=== PATIENT | female | born 1990 | race Caucasian/White ===

== ENCOUNTER 2017-12-18 06:17 | Emergency (ER) | payer OTHER, SELFPAY ==
[2017-12-18 06:33] VITALS: BP 117/78; PULSE 81; RESP 18; TEMP 36.5; O2SAT 100
--- NOTE | 2017-12-18 06:39 | DI.US.S_ITS ---
PROCEDURE: US PELVIC COMPLETE INDICATIONS: pelvic pain, bleeding TECHNIQUE: Real-time scanning was performed of the pelvic organs, with image documentation. Additional endovaginal scanning was necessary due to incomplete visualization of the adnexal and endometrial structures by transabdominal scanning. COMPARISON: None. FINDINGS: Transabdominal scanning: Limited scanning through the kidneys shows no hydronephrosis. No pathologic free abdominal or pelvic fluid. Endovaginal scanning: Uterus: Uterus is normal in size at the 7.3 x 2.5 x 3.2 cm. The endometrium measures 5 mm in combined thickness. Ovaries: The right ovary measures 3.0 x 2.5 x 1.8 cm and has a normal echotexture. The left ovary measures 1.8 x 1.4 x 2.4 cm and has a normal echotexture. No free pelvic fluid. IMPRESSION: 1. Unremarkable pelvic ultrasound. These findings are concordant with the overnight interpretation. Dictated by: Jessie Hernandez M.D. on 12/18/2017 at 8:31 Approved by: Jessie Hernandez M.D. on 12/18/2017 at 8:32
--- NOTE | 2017-12-18 06:40 | ED.ABDPAIN ---
HPI - Abdominal Pain General Chief Complaint: Abdominal Pain Stated Complaint: ABDOMINAL PAIN AND VOMITING Time Seen by Provider: 12/18/17 06:28 Source: patient Mode of arrival: ambulatory Limitations: no limitations History of Present Illness HPI narrative: 27-year-old female with history of ovarian cysts and endometriosis presents to the emergency department with a chief complaint of episodes of pelvic pain with nausea and vomiting since Tuesday. Her last. Was November 29 and was normal for her. She has had decreased appetite and is now a bit dizzy and lightheaded. She denies any fever or chills MD complaint: abdominal pain Onset (ago): day(s) Pain Consistency: intermittent Location: suprapubic Severity: moderate Quality: cramping and aching Radiation: none Migration to: no migration Relieving factors: nothing Exacerbating factors: movement Associated symptoms: nausea and vomiting Related Data Date of Last Menstrual Period: 11/29/17 Patient : No Home Medications Medication Instructions Recorded Confirmed etonogestrel [Nexplanon] 68 mg INTRADERMAL #0 ea 04/07/16 12/06/17 valacyclovir 1 gram tablet 500 mg PO BID 12/06/17 12/06/17 Previous Rx's Medication Instructions Recorded ondansetron [Zofran ODT] 4 mg SUBLINGUAL Q6HP PRN #10 odt 09/10/17 levonorgestrel 0.15 mg-ethinyl 1 tab PO DAILY #2 packet 12/06/17 estradiol 0.03 mg tablet oxycodone-acetaminophen 5 mg-325 1 tab PO Q6H #20 tab 12/06/17 mg tablet Allergies Allergy/AdvReac Type Severity Reaction Status Date / Time azithromycin [AZITHROMYCIN] Allergy Severe rash/throat Verified 12/18/17 08:00 swelling topiramate [TOPIRAMATE] Allergy Intermediate Rash Verified 12/18/17 08:00 codeine [CODEINE] AdvReac Severe Heartburn Verified 12/18/17 08:00 tramadol [TRAMADOL] AdvReac Intermediate Vomiting Verified 12/18/17 08:00 Review of Systems Review of Systems All systems reviewed & are unremarkable except as noted in HPI and below Constitutional Denies chills, Reports fatigue, Denies fever(s), Denies lethargy and Denies weakness Eyes Denies change in vision, Denies eye discharge, Denies irritation and Denies loss of vision ENT Ears, Nose, Mouth, and Throat: Denies change in voice, Denies neck pain and Denies sore throat Cardiovascular Denies chest pain, Denies irregular heart rhythm, Denies lightheadedness, Denies palpitations, Denies dyspnea, Denies dyspnea on exertion and Denies orthopnea Respiratory Denies cough, Denies dyspnea, Denies dyspnea on exertion and Denies wheezing Gastrointestinal Gastrointestinal: Denies abdominal pain, Denies change in bowel habits, Denies diarrhea, Reports nausea and Reports vomiting Genitourinary Denies hematuria, Reports pelvic pain, Denies flank pain, Denies urinary incontinence and Denies urinary urgency Musculoskeletal Denies neck pain Integumentary/Breasts Denies pruritus, Denies erythema, Denies rash and Denies wounds Neurologic Denies confusion, Denies loss of vision and Denies weakness Psychiatric Denies anxiety, Denies confusion, Denies depression, Denies homicidal ideation and Denies suicidal ideation Endocrine Reports fatigue and Denies palpitations Hematologic/Lymphatic Denies easy bruising Allergic/Immunologic Denies wheezing PFSH Surgical History History of tonsillectomy Status post appendectomy Status post laparoscopy Status post laparoscopy Status post laparoscopy (07/19/14) Status post ovarian cystectomy Family History Grandfather Age: 81 Colon cancer Grandmother Age: 80 Scoliosis Grandfather Lung cancer Social History Smoking Status: Never smoker Exam Narrative Exam Narrative: Pleasant 27-year-old female in mild distress, holding emesis bag Initial Vital Signs Initial Vital Signs: Vital Signs Temperature 97.7 F 12/18/17 06:33 Pulse Rate 81 12/18/17 06:33 Respiratory Rate 18 12/18/17 06:33 Blood Pressure 117/78 12/18/17 06:33 Pulse Oximetry 100 12/18/17 06:33 Const General: cooperative and well developed Nutritional Appearance: well nourished Orientation: alert, awake, oriented x3 and not confused [facility] Head: normocephalic and atraumatic Ears: external ears normal and TM's normal bilaterally Nose: external nose normal and No nasal discharge Face and sinus: sinuses nontender, face symmetric, no sinus tenderness and No dry mucous membranes Mouth: oral mucosae normal and moist mucous membranes Teeth and gingiva: dentition normal Throat: tonsils normal and uvula midline Eyes General: appearance normal, both eyes and all related structures Eyelids: eyelids normal Conjunctivae: conjunctivae normal Sclera: sclerae normal Pupils: PERRL EOM: EOM intact bilaterally Neck Neck: normal visual inspection, trachea midline, No lymphadenopathy, No midline deformity and No JVD Lymphatic: No lymphedema Chest Chest: normal inspection of the chest Resp Effort & Inspection: normal respiratory effort, able to speak in complete sentences, no respiratory distress and no use of accessory muscles Auscultation: clear to auscultation bilaterally, no rales, no rhonchi and no wheezes Cardio Rate: regular rate Rhythm: regular rhythm Heart Sounds: no click, no gallops, no murmurs and no rubs Pulses: normal peripheral pulses GI Inspection: non-distended Palpation: soft, no hepatosplenomegaly, No guarding, No pulsatile mass and No tender Auscultation: normal bowel sounds Back/Spine/Pelvis Back: No CVA tenderness Cervical Spine: cervical ROM normal and No pain with cervical ROM Thoracic/Lumbar Spine: thoracic and lumbar spine normal to inspection Skin General: no rashes or lesions noted, No jaundice and No petechiae Neuro General: alert, oriented x3, gait normal and no focal motor deficits Speech: speech normal Extrem General: full ROM, no clubbing, cyanosis or edema, no pedal edema and no calf tenderness Psych Appearance: well kempt Mental Status: mental status grossly normal Attitude: cooperative Thought Content: normal and suicidality Judgment: judgment good Course Orders Ordered: Discontinued Medications Diphenhydramine HCl (Benadryl) 25 mg IV NOW ONE Stop: 12/18/17 09:07 Last Admin: 12/18/17 09:19 Dose: 25 mg Haloperidol (Haldol) 3 mg IV NOW ONE Stop: 12/18/17 09:07 Last Admin: 12/18/17 09:19 Dose: Not Given Sodium Chloride (Normal Saline 0.9%) 1,000 mls @ 1,000 mls/hr IV BOLUS ONE Stop: 12/18/17 07:38 Last Infusion: 12/18/17 08:58 Dose: 0 mls/hr Admin: 12/18/17 07:57 Dose: 1,000 mls/hr Ketorolac Tromethamine (Toradol) 30 mg IV NOW ONE Stop: 12/18/17 06:40 Last Admin: 12/18/17 07:58 Dose: 30 mg Ondansetron HCl (Zofran) 4 mg IV Q4HR PRN PRN Reason: Nausea And Vomiting Last Admin: 12/18/17 07:57 Dose: 4 mg Ondansetron HCl (Zofran Odt) 4 mg PO NOW ONE Stop: 12/18/17 09:51 Last Admin: 12/18/17 09:53 Dose: 4 mg Vital Signs - 8 hr 12/18/17 06:33 Temperature 97.7 F Pulse Rate 81 Respiratory Rate 18 Blood Pressure 117/78 Pulse Oximetry 100 MDM - Abdominal Pain Lab Data Result diagrams: 12/18/17 07:15 12/18/17 07:15 Lab Results 12/18/17 12/18/17 12/18/17 Range/Units 07:10 07:10 07:15 WBC 9.6 (4.5-11.0) X10^3/uL RBC 4.57 (4.0-5.2) X10^6/uL Hgb 13.5 (12.0-16.0) g/dL Hct 38.0 (36-46) % MCV 83.1 (80-100) fL MCH 29.6 (26-34) PG MCHC 35.6 (30-36) % RDW 12.7 (11.6-14.8) % Plt Count 457 H (150-400) X10^3/uL Neut % (Auto) 33.9 L (50-75) % Lymph % (Auto) 54.8 H (25-40) % [place] % (Auto) 6.7 (3-14) % Eos % (Auto) 3.9 (2-4) % Baso % (Auto) 0.7 (0-2) % Neut # (Auto) 3200 (7216-1591) /uL Sodium (137-145) mmol/L Potassium (3.4-5.1) mmol/L Chloride (98-107) mmol/L Carbon Dioxide (22-32) mmol/L BUN (7-17) mg/dL Creatinine (0.52-1.04) mg/dL Estimated GFR (>60) mL/min BUN/Creatinine Ratio (6-22) Glucose (70-100) mg/dL Calcium (8.4-10.2) mg/dL Total Bilirubin (0.2-1.3) mg/dL AST (14-36) IU/L ALT (9-52) IU/L Alkaline Phosphatase (38-126) U/L Total Protein (6.3-8.2) g/dL Albumin (3.5-5.0) g/dL Globulin (1.7-4.1) g/dL Albumin/Globulin Ratio (1.0-2.8) Urine Color Yellow Urine Appearance Clear Urine pH 8.5 H (4.5-8.0) Ur Specific [place] 1.015 (1.000-1.035) Urine Protein Negative (Negative) Urine Glucose (UA) Negative (Normal) g/dL Urine Ketones Negative (NEGATIVE) Urine Occult Blood Negative (Negative) Urine Nitrate Negative (Negative) Urine Bilirubin Negative (NEGATIVE) Urine Urobilinogen 0.2 (0.2) E.U./dL Ur Leukocyte Esterase Negative (NEGATIVE) Urine RBC None seen (0-5/HPF) Urine WBC None seen (0-5/HPF) Urine Bacteria None seen (None) Ur Culture Indicated? Cult not indicated Micro UA Comment Not Reportable Urine Test Negative (Negative) Urine Opiates Screen (Negative) Ur Oxycodone Screen (Negative) Urine Methadone Screen (Negative) Ur Barbiturates Screen (Negative) U Tricyclic Antidepress (Negative) Ur Phencyclidine Scrn (Negative) Ur Amphetamines Screen (Negative) U Methamphetamines Scrn (Negative) Ur MDMA Scrn (Ecstasy) (Negative) U Benzodiazepines Scrn (Negative) Urine Cocaine Screen (Negative) U Marijuana (THC) Screen (Negative) 12/18/17 12/18/17 Range/Units 07:15 09:10 WBC (4.5-11.0) X10^3/uL RBC (4.0-5.2) X10^6/uL Hgb (12.0-16.0) g/dL Hct (36-46) % MCV (80-100) fL MCH (26-34) PG MCHC (30-36) % RDW (11.6-14.8) % Plt Count (150-400) X10^3/uL Neut % (Auto) (50-75) % Lymph % (Auto) (25-40) % [place] % (Auto) (3-14) % Eos % (Auto) (2-4) % Baso % (Auto) (0-2) % Neut # (Auto) (4667-8049) /uL Sodium 141 (137-145) mmol/L Potassium 4.1 (3.4-5.1) mmol/L Chloride 101 (98-107) mmol/L Carbon Dioxide 27 (22-32) mmol/L BUN 15 (7-17) mg/dL Creatinine 0.80 (0.52-1.04) mg/dL Estimated GFR > 60.0 (>60) mL/min BUN/Creatinine Ratio 18.8 (6-22) Glucose 80 (70-100) mg/dL Calcium 9.8 (8.4-10.2) mg/dL Total Bilirubin 0.7 (0.2-1.3) mg/dL AST 33 (14-36) IU/L ALT 48 (9-52) IU/L Alkaline Phosphatase 91 (38-126) U/L Total Protein 7.8 (6.3-8.2) g/dL Albumin 4.5 (3.5-5.0) g/dL Globulin 3.3 (1.7-4.1) g/dL Albumin/Globulin Ratio 1.4 (1.0-2.8) Urine Color Urine Appearance Urine pH (4.5-8.0) Ur Specific [place] (1.000-1.035) Urine Protein (Negative) Urine Glucose (UA) (Normal) g/dL Urine Ketones (NEGATIVE) Urine Occult Blood (Negative) Urine Nitrate (Negative) Urine Bilirubin (NEGATIVE) Urine Urobilinogen (0.2) E.U./dL Ur Leukocyte Esterase (NEGATIVE) Urine RBC (0-5/HPF) Urine WBC (0-5/HPF) Urine Bacteria (None) Ur Culture Indicated? Micro UA Comment Urine Test (Negative) Urine Opiates Screen Positive H (Negative) Ur Oxycodone Screen Negative (Negative) Urine Methadone Screen Negative (Negative) Ur Barbiturates Screen Negative (Negative) U Tricyclic Antidepress Negative (Negative) Ur Phencyclidine Scrn Negative (Negative) Ur Amphetamines Screen Positive H (Negative) U Methamphetamines Scrn Negative (Negative) Ur MDMA Scrn (Ecstasy) Negative (Negative) U Benzodiazepines Scrn Negative (Negative) Urine Cocaine Screen Negative (Negative) U Marijuana (THC) Screen Negative (Negative) Discharge Plan Departure Patient Disposition: Home, Self-Care Clinical Impression: Pelvic pain, Abdominal pain Discharge Date/Time: 12/18/17 09:57 Interventions: ED Discharge Assessment Last Done: 12/18/17 09:57 Activity Restrictions/Additional Instructions: You were in seen in the [facility] Emergency Department for evaluation of abdominal pain and pelvic pain. At the time of your evaluation the cause of your symptoms are unclear. However no emergent medical processes were identified. Please follow-up with your [employer] within 1-2 days for repeat evaluation further care as appropriate. Please read and follow all of the instructions below. Please follow up with your primary care physician as needed. If you have any new symptoms or if you are at all concerned about your health please return immediately to the emergency department. If you do not have a primary care physician, please contact [facility], [facility] at [phone], [facility] at [phone], or [facility] at [phone] to arrange follow up care. If you have health insurance, please also contact your insurer for a list of accepting providers under your policy, you may contact these providers for further health care. Your care today was limited to identifying and treating emergent medical problems only. Many people have subtle differences in their test results that require follow up with their outpatient physician(s) to correctly determine if this represents a normal variation or concerning abnormality with respect to your specific health. The care given to you today was limited to identifying and treating emergent medical problems - you need to request a copy of all of your medical records from today's visit and follow up with your outpatient physician(s) to review both today's visit and your overall health. Abdominal and Pelvic Pain The exact cause of your abdominal pain is not certain. Based upon the testing today you are felt to be at low risk for discharge. There are no current signs of a life threatening illness or injury. Your condition does not seem serious now; however, sometimes the signs of a serious problem may take more time to appear. For this reason, it is important for you to watch for any new symptoms, problems, or worsening of your condition. Over the next few days, the abdominal pain may come and go, or be continuous. Other common symptoms can include nausea and vomiting. Sometimes it can be difficult to tell if you feel nauseous, you may just feel bad and not associate that feeling with nausea. Constipation, diarrhea, and a fever may go along with the pain. The pain may continue even if treated correctly over the following days. Depending on how things go, sometimes the cause can become clear and may require further or different treatment. Additional evaluations, medications, or tests may be needed. If your symptoms do not worsen but you are still having pain after 12-24 hours, please call your primary care physician to arrange for further evaluation. Return to the emergency department if any of the following occur: * Pain gets worse or moves to the right lower abdomen * New or worsening vomiting or diarrhea * Swelling of the abdomen * Unable to pass gas or stool for more than 8 hours * Fever of 100.4?F (38?C) or higher, or as directed by your healthcare provider. * Blood in vomit or bowel movements (dark red or black color) * If you have yellow skin or eyes or if you have dark brown urine. * Weakness, dizziness * Chest, arm, back, neck or jaw pain * Unexpected vaginal bleeding or missed period * Trouble breathing * Confusion * Fainting or loss of consciousness * Rapid heart rate * Seizure * If you are light headed upon standing or passing out. * If you are otherwise concerned about your health. Home Care * Do not force yourself to eat, especially if having cramps, vomiting, or diarrhea. * Water is important so you do not get dehydrated. Soup may also be good. Sports drinks may also help, especially if they are not too acidic. Make sure you don't drink sugary drinks as this can make things worse. Take liquids in small amounts. * Caffeine sometimes makes the pain and cramping worse. * Avoid dairy products if you have vomiting or diarrhea. * Don't eat large amounts at a time. Wait a few minutes between bites. * Eat a diet low in fiber (called a low-residue diet). Foods allowed include refined breads, white rice, fruit and vegetable juices without pulp, tender meats. These foods will pass more easily through the intestine. * Avoid whole-grain foods, whole fruits and vegetables, meats, seeds and nuts, fried or fatty foods, dairy, alcohol and spicy foods until your symptoms go away. Prescriptions: No Action etonogestrel [Nexplanon] 68 MG implant 68 mg Intradermal Qty: 0 RF: 0 ondansetron [Zofran ODT] 4 MG tablet,disintegrating 4 mg Sublingual Q6HP PRNQty: 10 RF: 0 valacyclovir 1 gram tablet 500 mg PO BID RF: 0 levonorgestrel-ethinyl estrad [Levora 0.15/30 (28)] 0.15-0.03 mg tablet 1 tab PO DAILY Qty: 2 RF: 3 oxycodone-acetaminophen [Percocet] 5-325 mg tablet 1 tab PO Q6H Qty: 20 RF: 0
[2017-12-18 07:40] LABS: Bacteria Urine None Seen; RBC Urine None Seen (0-5/HPF); WBC Urine None Seen (0-5/HPF)
[2017-12-18 07:52] LABS: Appearance Urine UA CLEAR; Bilirubin Urine UA NEGATIVE (NEGATIVE); Color Urine UA YELLOW; Glucose Urine UA NEGATIVE (Normal); Ketones Urine UA NEGATIVE (NEGATIVE); Leukocyte Esterase Urine UA NEGATIVE (NEGATIVE); Nitrite Urine UA Negative (Negative); Occult Blood Urine UA NEGATIVE (Negative); Protein Urine UA NEGATIVE (Negative); Specific Gravity Urine UA 1.015 (1.000-1.035); Urobilinogen Urine UA 0.2 E.U./dL (0.2); pH Urine UA 8.5 (4.5-8.0)
[2017-12-18 07:56] LABS: Pregnancy Test Urine Negative (Negative)
[2017-12-18] MEDS: ONDANSETRON 4 MG/2 ML INJ IV (07:57)
[2017-12-18] MEDS: SODIUM CHLORIDE 0.9% 1,000 ML 1000 ML IV (07:57)
[2017-12-18] MEDS: KETOROLAC 15 MG/ML VIAL 30 MG IV (07:58)
[2017-12-18 07:59] LABS: Add Manual Diff / Slide Review NO; Basophils Percent Auto 0.7 % (0-2); Eosinophils Percent Auto 3.9 % (2-4); Hemoglobin 13.5 g/dL (12.0-16.0); Lymphocytes Percent Auto 54.8 % (25-40); Mean Corpuscular HGB Conc 35.6 % (30-36); Mean Corpuscular Hemoglobin 29.6 PG (26-34); Mean Corpuscular Volume 83.1 fL (80-100); Monocytes Percent Auto 6.7 % (3-14); Neutrophils Absolute Auto 3200 /uL (3000-5900); Neutrophils Percent Auto 33.9 % (50-75); Platelet Count 457 X10^3/uL (150-400); Red Blood Cell Count 4.57 X10^6/uL (4.0-5.2); Red Cell Distribution Width 12.7 % (11.6-14.8); White Blood Cell Count 9.6 X10^3/uL (4.5-11.0)
[2017-12-18 08:11] LABS: Culture Indicated Urine Cult Not Indicated
[2017-12-18 08:13] LABS: Alanine Aminotransferase 48 IU/L (9-52); Albumin 4.5 g/dL (3.5-5.0); Albumin Globulin Ratio 1.4 (1.0-2.8); Alkaline Phosphatase 91 U/L (38-126); Aspartate Aminotransferase 33 IU/L (14-36); BUN Creatinine Ratio 18.8 (6-22); Bilirubin Total 0.7 mg/dL (0.2-1.3); Blood Urea Nitrogen 15 mg/dL (7-17); Calcium 9.8 mg/dL (8.4-10.2); Carbon Dioxide 27 mmol/L (22-32); Chloride 101 mmol/L (98-107); Estimated Glomerular Filt Rate > 60.0 mL/min (>60); Globulin 3.3 g/dL (1.7-4.1); Glucose 80 mg/dL (70-100); HEMOLYSIS < 15 (0-50); Potassium 4.1 mmol/L (3.4-5.1); Sodium 141 mmol/L (137-145); Total Protein 7.8 g/dL (6.3-8.2)
[2017-12-18] MEDS: diphenhydrAMINE 50 MG/ML VIAL 25 MG IV (09:19)
[2017-12-18 09:41] LABS: Urine Tetrahydrocannabinol Negative (Negative)
[2017-12-18 09:42] LABS: Urine Amphetamines Positive (Negative); Urine Barbiturates Negative (Negative); Urine Benzodiazepines Negative (Negative); Urine Cocaine Negative (Negative); Urine MDMA Negative (Negative); Urine Methadone Negative (Negative); Urine Methamphetamines Negative (Negative); Urine Morphine/Opi cutoff 2000 Positive (Negative); Urine Oxycodone Negative (Negative); Urine Phencyclidine Negative (Negative); Urine Tricyclic Antidepressant Negative (Negative)
[2017-12-18] MEDS: ONDANSETRON 4 MG ODT PO (09:53)
[2017-12-18 09:56] VITALS: BP 101/69; PULSE 88; RESP 15; O2SAT 100
--- NOTE | 2017-12-18 10:52 | PC.NURSE ---
at 0930 I went in to get pt ready for discharge and she wouldn't let me remove her IV until she talked to the doctor, she used her hand to cover her IV, earlier she had asked for 2mg of dilaudid, at that time I let her know that the md would have to order that and also we were still on a drug shortage. 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 I updated her on her ultrasound results and she denies that she may have hyper emesis which is what the physican is suspecting.
== END 2017-12-18 09:57 | disposition home or self-care (01) ==
PROVIDERS: Emergency Medicine; Emergency Provider Emergency Medicine; Family Provider Nurse Practitioner; PCP Nurse Practitioner
DX: R10.9 Unspecified abdominal pain (principal)
CPT/HCPCS: 36415; 36591; 76856; 80053; 80305; 81001; 81025; 85025; 96361; 96374; 96375; 99283; 99284; J1200; J1630; J1885; J2405

== ENCOUNTER 2018-10-24 16:14 | Inpatient (IN) | payer OTHER, SELFPAY ==
[2018-10-24 16:19] VITALS: BP 154/101; PULSE 90; RESP 19; TEMP 36.5; O2SAT 100; BMI 38.0
--- NOTE | 2018-10-24 17:45 | DI.US.S_ITS ---
PROCEDURE: US PELVIC COMPLETE INDICATIONS: LEFT PELVIC PAIN TECHNIQUE: Real-time scanning was performed of the pelvic organs, with image documentation. Additional endovaginal scanning was necessary due to incomplete visualization of the adnexal and endometrial structures by transabdominal scanning. COMPARISON: None. FINDINGS: Transabdominal scanning: Limited scanning through the kidneys shows no hydronephrosis. No pathologic free abdominal or pelvic fluid. Endovaginal scanning: Uterus: Uterus is surgically absent. Ovaries: Right adnexa measures 2.9 x 1.6 x 2.8 cm. Right adnexa sonographically normal. Left adnexa is not visualized and cannot be evaluated. IMPRESSION: 1. Status post hysterectomy. 2. Right adnexa sonographically normal. 3. Left adnexa not visualized and cannot be evaluated. Dictated by: Abigail Stinson MD, PhD on 10/24/2018 at 19:29 Approved by: Abigail Stinson MD, PhD on 10/24/2018 at 19:30
--- NOTE | 2018-10-24 17:56 | ED.ABDPAIN ---
HPI - Abdominal Pain <Ana Luisa Hanks PA-C - Last Filed: 10/24/18 22:45> General Chief Complaint: Abdominal Pain Stated Complaint: LLQ ABD PAIN Time Seen by Provider: 10/24/18 16:30 Source: patient Mode of arrival: ambulatory Limitations: no limitations History of Present Illness HPI narrative: This 28-year-old female was sent from [facility] to evaluate for possible recurrent ovarian cyst. She states that she had left pelvic pain onset Tuesday, but acutely worse today, worse with movement. She has had persistent nausea with vomiting x2 today though she has been able to keep down some water. She denies any dysuria, hematuria or new urinary symptoms. Normal bowel movements last couple of days without change. She states that she did have the flu about 10 days ago and still has some cough but has felt like that is getting better. She states that she had a fever of 102 last night but came down with Tylenol and Motrin. She states that this feels similar to her previous ovarian cysts rather than being higher up in the abdomen. She denies any other new symptoms on systems review. Related Data Home Medications Medication Instructions Recorded Confirmed valacyclovir 1 gram tablet 500 mg PO BID PRN 12/06/17 10/25/18 Allergies Allergy/AdvReac Type Severity Reaction Status Date / Time azithromycin [AZITHROMYCIN] Allergy Severe rash/throat Verified 04/28/18 13:37 swelling topiramate [TOPIRAMATE] Allergy Intermediate Rash Verified 04/28/18 13:37 codeine [CODEINE] AdvReac Severe Heartburn Verified 04/28/18 13:37 tramadol [TRAMADOL] AdvReac Intermediate Vomiting Verified 04/28/18 13:37 Review of Systems <Ana Luisa Hanks PA-C - Last Filed: 10/24/18 22:45> Review of Systems ROS Unobtainable: All systems reviewed & are unremarkable except as noted in HPI and below PFSH <Ana Luisa Hanks PA-C - Last Filed: 10/24/18 22:45> Medical History Acne (Chronic 2006) Ankle pain (Chronic 2014) Chronic headaches (Chronic 2007) Eczema (Chronic 1999) Endometriosis (Chronic 2007) Herpes (Chronic 2014) History of heavy periods (Chronic 2005) Migraines (Chronic 2007) Painful menstrual periods (Chronic 2003) Abnormal Pap smear of cervix (Resolved 2013) Gastric ulcer (Resolved 2015) HPV (human papilloma virus) infection (Resolved 2013) Ovarian cyst (Resolved 2007) Surgical History History of orthopedic surgery (Resolved 07/16/15) History of tonsillectomy (Resolved 06/2010) Status post appendectomy (Resolved 01/2008) Status post laparoscopy (Resolved 2007) Status post laparoscopy (Resolved 2009) Status post laparoscopy (Resolved 07/19/14) Status post ovarian cystectomy (Resolved 2007) Family History (Updated 01/12/18 @ 13:13 by Shira Wiseman) Grandfather Age: 81 Colon cancer Grandmother Age: 80 Scoliosis Grandfather Lung cancer Mother Oral cancer Social History Smoking Status: Never smoker Family History (Updated 01/12/18 @ 13:13 by Shira Wiseman) Grandfather Age: 81 Colon cancer Grandmother Age: 80 Scoliosis Grandfather Lung cancer Mother Oral cancer Social History household members: spouse Smoking Status: Never smoker Exam <Ana Luisa Hanks PA-C - Last Filed: 10/24/18 22:45> Narrative Exam Narrative: GENERAL APPEARANCE: Patient appears uncomfortable but in NAD. HEENT: PERRL, EOMI, no scleral icterus, conjunctivae pink NECK: Supple LUNGS: Clear to auscultation bilaterally. HEART: Rate and rhythm regular, normal S1 and S2, no S3 or S4. ABDOMEN: Soft, nondistended, bowel sounds present x 4 quadrants, no masses palpable, no hepatosplenomegaly. exquisite tenderness over the left side of the pelvis without guarding or rebound, no midline tenderness, mild left lower quadrant tenderness, no CVAT EXTREMITIES: No edema DERMATOLOGIC: No jaundice or exanthem NEUROLOGIC: Alert and oriented with normal speech and coordination Initial Vital Signs Initial Vital Signs: Vital Signs Temperature 97.7 F 10/24/18 16:19 Pulse Rate 90 10/24/18 16:19 Respiratory Rate 19 10/24/18 16:19 Blood Pressure 154/101 H 10/24/18 16:19 Pulse Oximetry 100 10/24/18 16:19 <Yemi Carranza DO - Last Filed: 10/25/18 05:22> Initial Vital Signs Initial Vital Signs: Vital Signs Temperature 97.7 F 10/24/18 16:19 Pulse Rate 90 10/24/18 16:19 Respiratory Rate 19 10/24/18 16:19 Blood Pressure 154/101 H 10/24/18 16:19 Pulse Oximetry 100 10/24/18 16:19 Course <Ana Luisa Hanks PA-C - Last Filed: 10/24/18 22:45> Additional Information: The patient has had persistent pain though improved with medications. She did have some improvement with initial nausea medications but was not able to tolerate water after as cell Zofran and IM Compazine. We were eventually able to get an IV started, lab work is pending. Patient is currently stable, signed out to Dr. Carranza at 2245 who will review labwork and evaluate Orders Ordered: ED Orders 10/24/18 22:37 Complete Blood Count AUTO DIFF Stat Comprehensive Metabolic Panel Stat Lactate (Lactic Acid) Stat Lipase Stat Sodium Chloride (Normal Saline 0.9%) 1,000 mls @ 125 mls/hr IV CONT YAN Last Admin: 10/25/18 02:18 Dose: 125 mls/hr HYDROMORPHONE SACK CLEANING HAND (6MG/30ML) (Dilaudid Flux Core Welder (6mg/30ml)) 6 mg in 30 mls @ 0 mls/hr IV Q8HR PRN PRN Reason: Pain, Severe (7-10) Last Admin: 10/25/18 02:18 Dose: 0 mls/hr Naloxone HCl (Narcan) 0.2 mg IV Q2MIN PRN; Protocol PRN Reason: Opiate Reversal Ondansetron HCl (Zofran) 4 mg IV Q4HR PRN PRN Reason: Nausea And Vomiting Last Admin: 10/25/18 02:27 Dose: 4 mg Discontinued Medications Hydromorphone HCl (Dilaudid) 2 mg SUBCUT Q4H PRN PRN Reason: Pain, Severe (7-10) Hydromorphone HCl (Dilaudid) 2 mg IM Q4H PRN PRN Reason: Pain, Severe (7-10) Last Admin: 10/24/18 19:55 Dose: 2 mg Hydromorphone HCl (Dilaudid) 1 mg SUBCUT Q4H PRN PRN Reason: Pain, Severe (7-10) Last Admin: 10/24/18 21:32 Dose: 1 mg Sodium Chloride (Normal Saline 0.9%) 1,000 mls @ 1,000 mls/hr IV BOLUS ONE Stop: 10/24/18 23:38 Last Infusion: 10/24/18 23:49 Dose: 0 mls/hr Admin: 10/24/18 22:40 Dose: 1,000 mls/hr Ketorolac Tromethamine (Toradol) 15 mg IV NOW ONE Stop: 10/24/18 23:44 Last Admin: 10/24/18 23:49 Dose: 15 mg Ondansetron HCl (Zofran Odt) 4 mg SL NOW ONE Stop: 10/24/18 19:00 Last Admin: 10/24/18 19:54 Dose: 4 mg Ondansetron HCl (Zofran) 4 mg IV NOW ONE Stop: 10/24/18 22:40 Last Admin: 10/24/18 22:40 Dose: 4 mg Oxycodone/Acetaminophen (Percocet 5/325) 2 tab PO NOW ONE Stop: 10/24/18 19:00 Last Admin: 10/24/18 20:20 Dose: Not Given Prochlorperazine (Compazine) 10 mg IM NOW ONE Stop: 10/24/18 21:01 Last Admin: 10/24/18 20:50 Dose: 10 mg Vital Signs - 8 hr 10/24/18 22:00 10/25/18 00:08 10/25/18 01:56 Temperature 97.6 F Pulse Rate 91 H 96 H 94 H Respiratory Rate 15 16 Blood Pressure 148/90 H Blood Pressure [Left Arm] 118/79 130/115 H Pulse Oximetry 99 98 100 10/25/18 05:07 Temperature 97.9 F Pulse Rate Respiratory Rate Blood Pressure Blood Pressure [Left Arm] Pulse Oximetry <Yemi Carranza DO - Last Filed: 10/25/18 05:22> Course Narrative: Patient signed out to me by our advanced physician practice market manager. I have independently interviewed and examined this patient. I have elected to perform a pelvic exam as imaging and labs to not pain unclear picture. Patient has severe left adnexal tenderness on exam. We have done an extensive evaluation including labs, ultrasound and abdominal and pelvic CT. There is no clear etiology of her pain and ultrasound did not clearly imaged left ovary raising the suspicion of the possibility of a concerning diagnosis. Given her intractable pain I consulted on-call provider and we elect to place her in the hospital and perform serial exams and will get a rate analyst exam/referral in AM Orders Ordered: ED Orders 10/24/18 22:37 Complete Blood Count AUTO DIFF Stat Comprehensive Metabolic Panel Stat Lactate (Lactic Acid) Stat Lipase Stat Sodium Chloride (Normal Saline 0.9%) 1,000 mls @ 125 mls/hr IV CONT YAN Last Admin: 10/25/18 02:18 Dose: 125 mls/hr HYDROMORPHONE SACK CLEANING HAND (6MG/30ML) (Dilaudid Flux Core Welder (6mg/30ml)) 6 mg in 30 mls @ 0 mls/hr IV Q8HR PRN PRN Reason: Pain, Severe (7-10) Last Admin: 10/25/18 02:18 Dose: 0 mls/hr Naloxone HCl (Narcan) 0.2 mg IV Q2MIN PRN; Protocol PRN Reason: Opiate Reversal Ondansetron HCl (Zofran) 4 mg IV Q4HR PRN PRN Reason: Nausea And Vomiting Last Admin: 10/25/18 02:27 Dose: 4 mg Discontinued Medications Hydromorphone HCl (Dilaudid) 2 mg SUBCUT Q4H PRN PRN Reason: Pain, Severe (7-10) Hydromorphone HCl (Dilaudid) 2 mg IM Q4H PRN PRN Reason: Pain, Severe (7-10) Last Admin: 10/24/18 19:55 Dose: 2 mg Hydromorphone HCl (Dilaudid) 1 mg SUBCUT Q4H PRN PRN Reason: Pain, Severe (7-10) Last Admin: 10/24/18 21:32 Dose: 1 mg Sodium Chloride (Normal Saline 0.9%) 1,000 mls @ 1,000 mls/hr IV BOLUS ONE Stop: 10/24/18 23:38 Last Infusion: 10/24/18 23:49 Dose: 0 mls/hr Admin: 10/24/18 22:40 Dose: 1,000 mls/hr Ketorolac Tromethamine (Toradol) 15 mg IV NOW ONE Stop: 10/24/18 23:44 Last Admin: 10/24/18 23:49 Dose: 15 mg Ondansetron HCl (Zofran Odt) 4 mg SL NOW ONE Stop: 10/24/18 19:00 Last Admin: 10/24/18 19:54 Dose: 4 mg Ondansetron HCl (Zofran) 4 mg IV NOW ONE Stop: 10/24/18 22:40 Last Admin: 10/24/18 22:40 Dose: 4 mg Oxycodone/Acetaminophen (Percocet 5/325) 2 tab PO NOW ONE Stop: 10/24/18 19:00 Last Admin: 10/24/18 20:20 Dose: Not Given Prochlorperazine (Compazine) 10 mg IM NOW ONE Stop: 10/24/18 21:01 Last Admin: 10/24/18 20:50 Dose: 10 mg Vital Signs - 8 hr 10/24/18 22:00 10/25/18 00:08 10/25/18 01:56 Temperature 97.6 F Pulse Rate 91 H 96 H 94 H Respiratory Rate 15 16 Blood Pressure 148/90 H Blood Pressure [Left Arm] 118/79 130/115 H Pulse Oximetry 99 98 100 10/25/18 05:07 Temperature 97.9 F Pulse Rate Respiratory Rate Blood Pressure Blood Pressure [Left Arm] Pulse Oximetry MDM - Abdominal Pain <Ana Luisa Hanks PA-C - Last Filed: 10/24/18 22:45> Lab Data Result diagrams: 10/24/18 22:37 10/24/18 22:37 Lab Results 10/24/18 10/24/18 10/24/18 Range/Units 22:37 22:37 22:37 WBC 8.4 (4.5-11.0) X10^3/uL RBC 4.42 (4.0-5.2) X10^6/uL Hgb 13.1 (12.0-16.0) g/dL Hct 37.2 (36-46) % MCV 84.3 (80-100) fL MCH 29.6 (26-34) PG MCHC 35.1 (30-36) % RDW 11.9 (11.6-14.8) % Plt Count 527 H (150-400) X10^3/uL Neut % (Auto) 63.7 (50-75) % Lymph % (Auto) 29.5 (25-40) % [place] % (Auto) 4.9 (3-14) % Eos % (Auto) 1.3 L (2-4) % Baso % (Auto) 0.6 (0-2) % Neut # (Auto) 5300 (0004-7811) /uL Lymph # (Auto) 2500 (6203-7903) /uL [place] # (Auto) 400 (0-900) /uL Eos # (Auto) 100 (0-450) /uL Baso # (Auto) 100 (0-100) /uL Sodium 136 L (137-145) mmol/L Potassium 4.2 (3.4-5.1) mmol/L Chloride 104 (98-107) mmol/L Carbon Dioxide 23 (22-32) mmol/L BUN 19 H (7-17) mg/dL Creatinine 0.70 (0.52-1.04) mg/dL Estimated GFR > 60.0 (>60) mL/min BUN/Creatinine Ratio 27.1 H (6-22) Glucose 93 (70-100) mg/dL Lactate 0.7 (0.7-2.1) mmol/L Calcium 9.6 (8.4-10.2) mg/dL Total Bilirubin 0.8 (0.2-1.3) mg/dL AST 38 H (14-36) IU/L ALT 47 (9-52) IU/L Alkaline Phosphatase 87 (38-126) U/L Total Protein 7.7 (6.3-8.2) g/dL Albumin 4.4 (3.5-5.0) g/dL Globulin 3.3 (1.7-4.1) g/dL Albumin/Globulin Ratio 1.3 (1.0-2.8) Lipase 176 (23-300) U/L Point of care testing: Urine Dip Bedside Urine Glucose Negative Bedside Urine Bilirubin + 1 Bedside Urine Ketone +/- 5 Urine Specific [place] 1.025 Bedside Urine Occult Blood - Negative Bedside Urine pH 6.0 Bedside Urine Protein +/- 15 Bedside Urine Urobilinogen +/- 1mg Bedside Urine Nitrite - Negative Bedside Urine Leukocytes - Negative Esterase Imaging Data pelvis: Radiologist's impression: 28 Ana Luisa Hanks PA-C Find Patient Imaging Linda Siu Hal 28 F 1990 ACTIVITY DATE EXAM STATUS AUTHOR 10/24/18 17:45 Signed Abigail Stinson ORDER STATUS ORDER START ORDER DETAIL CT abdomen pelvis w con Ordered 10/24/18 19:[address] [address] Ultrasound Report Signed Patient: Linda Siu [facility]#: [id number] : 1990Acct:[id number] Age/Sex: 28 / FDate of Service: 10/24/18 Loc: ED Accession Number: [id number] Procedure: US pelvic complete Ordering Provider: Gabo Rivas D.O. PROCEDURE: US PELVIC COMPLETE INDICATIONS: LEFT PELVIC PAIN TECHNIQUE: Real-time scanning was performed of the pelvic organs, with image documentation. Additional endovaginal scanning was necessary due to incomplete visualization of the adnexal and endometrial structures by transabdominal scanning. COMPARISON: None. FINDINGS: Transabdominal scanning: Limited scanning through the kidneys shows no hydronephrosis. No pathologic free abdominal or pelvic fluid. Endovaginal scanning: Uterus: Uterus is surgically absent. Ovaries: Right adnexa measures 2.9 x 1.6 x 2.8 cm. Right adnexa sonographically normal. Left adnexa is not visualized and cannot be evaluated. IMPRESSION: 1. Status post hysterectomy. 2. Right adnexa sonographically normal. 3. Left adnexa not visualized and cannot be evaluated. Dictated by: Abigail Stinson MD, PhD on 10/24/2018 at 19:29 Approved by: Abigail Stinson MD, PhD on 10/24/2018 at 19:30 <Yemi Carranza, DO - Last Filed: 10/25/18 05:22> Lab Data Lab Results 10/24/18 10/24/18 10/24/18 Range/Units 22:37 22:37 22:37 WBC 8.4 (4.5-11.0) X10^3/uL RBC 4.42 (4.0-5.2) X10^6/uL Hgb 13.1 (12.0-16.0) g/dL Hct 37.2 (36-46) % MCV 84.3 (80-100) fL MCH 29.6 (26-34) PG MCHC 35.1 (30-36) % RDW 11.9 (11.6-14.8) % Plt Count 527 H (150-400) X10^3/uL Neut % (Auto) 63.7 (50-75) % Lymph % (Auto) 29.5 (25-40) % [place] % (Auto) 4.9 (3-14) % Eos % (Auto) 1.3 L (2-4) % Baso % (Auto) 0.6 (0-2) % Neut # (Auto) 5300 (4352-5465) /uL Lymph # (Auto) 2500 (8332-6534) /uL [place] # (Auto) 400 (0-900) /uL Eos # (Auto) 100 (0-450) /uL Baso # (Auto) 100 (0-100) /uL Sodium 136 L (137-145) mmol/L Potassium 4.2 (3.4-5.1) mmol/L Chloride 104 (98-107) mmol/L Carbon Dioxide 23 (22-32) mmol/L BUN 19 H (7-17) mg/dL Creatinine 0.70 (0.52-1.04) mg/dL Estimated GFR > 60.0 (>60) mL/min BUN/Creatinine Ratio 27.1 H (6-22) Glucose 93 (70-100) mg/dL Lactate 0.7 (0.7-2.1) mmol/L Calcium 9.6 (8.4-10.2) mg/dL Total Bilirubin 0.8 (0.2-1.3) mg/dL AST 38 H (14-36) IU/L ALT 47 (9-52) IU/L Alkaline Phosphatase 87 (38-126) U/L Total Protein 7.7 (6.3-8.2) g/dL Albumin 4.4 (3.5-5.0) g/dL Globulin 3.3 (1.7-4.1) g/dL Albumin/Globulin Ratio 1.3 (1.0-2.8) Lipase 176 (23-300) U/L Point of care testing: Urine Dip Bedside Urine Glucose Negative Bedside Urine Bilirubin + 1 Bedside Urine Ketone +/- 5 Urine Specific [place] 1.025 Bedside Urine Occult Blood - Negative Bedside Urine pH 6.0 Bedside Urine Protein +/- 15 Bedside Urine Urobilinogen +/- 1mg Bedside Urine Nitrite - Negative Bedside Urine Leukocytes - Negative Esterase Discharge Plan Departure Patient Disposition: Admitted as Observation Clinical Impression: Acute left lower quadrant pain Discharge Date/Time: 10/25/18 01:41 Interventions: ED Discharge Assessment Last Done: 10/25/18 01:38 Admit Date/Time: 10/25/18 00:43 Admit Provider: Facundo Hartman ED Cosign/Signout <Ana Luisa Hanks PA-C - Last Filed: 10/24/18 22:45> Sign Out Provider Sign Out Attestation: Reviewed with patient lack of acute findings on CT scan, however she is still unable to tolerate oral fluids at, still having pain. 3rd nurse who tried her IV this evening was able to obtain at 10:45 p.m., fluids are running and labs are pending. Dr. Carranza will monitor and review results. Patient informed
--- NOTE | 2018-10-24 18:23 | ED_ITS ---
HPI - Abdominal Pain <Ana Luisa Hanks PA-C - Last Filed: 10/24/18 22:45> General Chief Complaint: Abdominal Pain Stated Complaint: LLQ ABD PAIN Time Seen by Provider: 10/24/18 16:30 Source: patient Mode of arrival: ambulatory Limitations: no limitations History of Present Illness HPI narrative: This 28-year-old female was sent from [facility] to evaluate for possible recurrent ovarian cyst. She states that she had left pelvic pain onset Tuesday, but acutely worse today, worse with movement. She has had persistent nausea with vomiting x2 today though she has been able to keep d own some water. She denies any dysuria, hematuria or new urinary symptoms. Normal bowel movements last couple of days without change. She states that she did have the flu about 10 days ago and still has some cough but has felt like that is getting better. She states that she had a fever of 102 last night but came down with Tylenol and Motrin. She states that this feels similar to her previous ovarian cysts rather than being higher up in the abdomen. She denies any other new symptoms on systems review. Related Data Home Medications Medication Instructions Recorded Confirmed valacyclovir 1 gram tablet 500 mg PO BID PRN 12/06/17 10/25/18 Allergies Allergy/AdvReac Type Severity Reaction Status Date / Time azithromycin [AZITHROMYCIN] Allergy Severe rash/throat Verified 04/28/18 13:37 swelling topiramate [TOPIRAMATE] Allergy Intermediate Rash Verified 04/28/18 13:37 codeine [CODEINE] AdvReac Severe Heartburn Verified 04/28/18 13:37 tramadol [TRAMADOL] AdvReac Intermediate Vomiting Verified 04/28/18 13:37 Review of Systems <Ana Luisa Hanks PA-C - Last Filed: 10/24/18 22:45> Review of Systems ROS Unobtainable: All systems reviewed & are unremarkable except as noted in HPI and below PFSH <Ana Luisa Hanks PA-C - Last Filed: 10/24/18 22:45> Medical History Acne (Chronic 2006) Ankle pain (Chronic 2014) Chronic headaches (Chronic 2007) Eczema (Chronic 1999) Endometriosis (Chronic 2007) Herpes (Chronic 2014) History of heavy periods (Chronic 2005) Migraines (Chronic 2007) Painful menstrual periods (Chronic 2003) Abnormal Pap smear of cervix (Resolved 2013) Gastric ulcer (Resolved 2015) HPV (human papilloma virus) infection (Resolved 2013) Ovarian cyst (Resolved 2007) Surgical History History of orthopedic surgery (Resolved 07/16/15) History of tonsillectomy (Resolved 06/2010) Status post appendectomy (Resolved 01/2008) Status post laparoscopy (Resolved 2007) Status post laparoscopy (Resolved 2009) Status post laparoscopy (Resolved 07/19/14) Status post ovarian cystectomy (Resolved 2007) Family History (Updated 01/12/18 @ 13:13 by Shira Wiseman) Grandfather Age: 81 Colon cancer Grandmother Age: 80 Scoliosis Grandfather Lung cancer Mother Oral cancer Social History Smoking Status: Never smoker Family History (Updated 01/12/18 @ 13:13 by Shira Wiseman) Grandfather Age: 81 Colon cancer Grandmother Age: 80 Scoliosis Grandfather Lung cancer Mother Oral cancer Social History household members: spouse Smoking Status: Never smoker Exam <Ana Luisa Hanks PA-C - Last Filed: 10/24/18 22:45> Narrative Exam Narrative: GENERAL APPEARANCE: Patient appears uncomfortable but in NAD. HEENT: PERRL, EOMI, no scleral icterus, conjunctivae pink NECK: Supple LUNGS: Clear to auscultation bilaterally. HEART: Rate and rhythm regular, normal S1 and S2, no S3 or S4. ABDOMEN: Soft, nondistended, bowel sounds present x 4 quadrants, no masses palpable, no hepatosplenomegaly. exquisite tenderness over the left side of the pelvis without guarding or rebound, no midline tenderness, mild left lower quadrant tenderness, no CVAT EXTREMITIES: No edema DERMATOLOGIC: No jaundice or exanthem NEUROLOGIC: Alert and oriented with normal speech and coordination Initial Vital Signs Initial Vital Signs: Vital Signs Temperature 97.7 F 10/24/18 16:19 Pulse Rate 90 10/24/18 16:19 Respiratory Rate 19 10/24/18 16:19 Blood Pressure 154/101 H 10/24/18 16:19 Pulse Oximetry 100 10/24/18 16:19 <Yemi Carranza DO - Last Filed: 10/25/18 05:22> Initial Vital Signs Initial Vital Signs: Vital Signs Temperature 97.7 F 10/24/18 16:19 Pulse Rate 90 10/24/18 16:19 Respiratory Rate 19 10/24/18 16:19 Blood Pressure 154/101 H 10/24/18 16:19 Pulse Oximetry 100 10/24/18 16:19 Course <Ana Luisa Hanks PA-C - Last Filed: 10/24/18 22:45> Additional Information: The patient has had persistent pain though improved with medications. She did have some improvement with initial nausea medications but was not able to tolerate water after as cell Zofran and IM Compazine. We were eventually able to get an IV started, lab work is pending. Patient is currently stable, signed out to Dr. Carranza at 2245 who will review labwork and evaluate Orders Ordered: ED Orders 10/24/18 22:37 Complete Blood Count AUTO DIFF Stat Comprehensive Metabolic Panel Stat Lactate (Lactic Acid) Stat Lipase Stat Sodium Chloride (Normal Saline 0.9%) 1,000 mls @ 125 mls/hr IV CONT YAN Last Admin: 10/25/18 02:18 Dose: 125 mls/hr HYDROMORPHONE CLEANING MATRON (6MG/30ML) (Dilaudid Director Of Supply Chain (6mg/30ml)) 6 mg in 30 mls @ 0 mls/hr IV Q8HR PRN PRN Reason: Pain, Severe (7-10) Last Admin: 10/25/18 02:18 Dose: 0 mls/hr Naloxone HCl (Narcan) 0.2 mg IV Q2MIN PRN; Protocol PRN Reason: Opiate Reversal Ondansetron HCl (Zofran) 4 mg IV Q4HR PRN PRN Reason: Nausea And Vomiting Last Admin: 10/25/18 02:27 Dose: 4 mg Discontinued Medications Hydromorphone HCl (Dilaudid) 2 mg SUBCUT Q4H PRN PRN Reason: Pain, Severe (7-10) Hydromorphone HCl (Dilaudid) 2 mg IM Q4H PRN PRN Reason: Pain, Severe (7-10) Last Admin: 10/24/18 19:55 Dose: 2 mg Hydromorphone HCl (Dilaudid) 1 mg SUBCUT Q4H PRN PRN Reason: Pain, Severe (7-10) Last Admin: 10/24/18 21:32 Dose: 1 mg Sodium Chloride (Normal Saline 0.9%) 1,000 mls @ 1,000 mls/hr IV BOLUS ONE Stop: 10/24/18 23:38 Last Infusion: 10/24/18 23:49 Dose: 0 mls/hr Admin: 10/24/18 22:40 Dose: 1,000 mls/hr Ketorolac Tromethamine (Toradol) 15 mg IV NOW ONE Stop: 10/24/18 23:44 Last Admin: 10/24/18 23:49 Dose: 15 mg Ondansetron HCl (Zofran Odt) 4 mg SL NOW ONE Stop: 10/24/18 19:00 Last Admin: 10/24/18 19:54 Dose: 4 mg Ondansetron HCl (Zofran) 4 mg IV NOW ONE Stop: 10/24/18 22:40 Last Admin: 10/24/18 22:40 Dose: 4 mg Oxycodone/Acetaminophen (Percocet 5/325) 2 tab PO NOW ONE Stop: 10/24/18 19:00 Last Admin: 10/24/18 20:20 Dose: Not Given Prochlorperazine (Compazine) 10 mg IM NOW ONE Stop: 10/24/18 21:01 Last Admin: 10/24/18 20:50 Dose: 10 mg Vital Signs - 8 hr 10/24/18 22:00 10/25/18 00:08 10/25/18 01:56 Temperature 97.6 F Pulse Rate 91 H 96 H 94 H Respiratory Rate 15 16 Blood Pressure 148/90 H Blood Pressure [Left Arm] 118/79 130/115 H Pulse Oximetry 99 98 100 10/25/18 05:07 Temperature 97.9 F Pulse Rate Respiratory Rate Blood Pressure Blood Pressure [Left Arm] Pulse Oximetry <Yemi Carranza DO - Last Filed: 10/25/18 05:22> Course Narrative: Patient signed out to me by our advanced business practices supervisor. I have independently interviewed and examined this patient. I have elected to perform a pelvic exam as imaging and labs to not pain unclear picture. Patient has severe left adnexal tenderness on exam. We have done an extensive evaluation including labs, ultrasound and abdominal and pelvic CT. There is no clear etiology of her pain and ultrasound did not clearly imaged left ovary raising the suspicion of the possibility of a concerning diagnosis. Given her intractable pain I consulted on-call provider and we elect to place her in the hospital and perform serial exams and will get a threading machine tender exam/referral in AM Orders Ordered: ED Orders 10/24/18 22:37 Complete Blood Count AUTO DIFF Stat Comprehensive Metabolic Panel Stat Lactate (Lactic Acid) Stat Lipase Stat Sodium Chloride (Normal Saline 0.9%) 1,000 mls @ 125 mls/hr IV CONT YAN Last Admin: 10/25/18 02:18 Dose: 125 mls/hr HYDROMORPHONE CLEANING MATRON (6MG/30ML) (Dilaudid Director Of Supply Chain (6mg/30ml)) 6 mg in 30 mls @ 0 mls/hr IV Q8HR PRN PRN Reason: Pain, Severe (7-10) Last Admin: 10/25/18 02:18 Dose: 0 mls/hr Naloxone HCl (Narcan) 0.2 mg IV Q2MIN PRN; Protocol PRN Reason: Opiate Reversal Ondansetron HCl (Zofran) 4 mg IV Q4HR PRN PRN Reason: Nausea And Vomiting Last Admin: 10/25/18 02:27 Dose: 4 mg Discontinued Medications Hydromorphone HCl (Dilaudid) 2 mg SUBCUT Q4H PRN PRN Reason: Pain, Severe (7-10) Hydromorphone HCl (Dilaudid) 2 mg IM Q4H PRN PRN Reason: Pain, Severe (7-10) Last Admin: 10/24/18 19:55 Dose: 2 mg Hydromorphone HCl (Dilaudid) 1 mg SUBCUT Q4H PRN PRN Reason: Pain, Severe (7-10) Last Admin: 10/24/18 21:32 Dose: 1 mg Sodium Chloride (Normal Saline 0.9%) 1,000 mls @ 1,000 mls/hr IV BOLUS ONE Stop: 10/24/18 23:38 Last Infusion: 10/24/18 23:49 Dose: 0 mls/hr Admin: 10/24/18 22:40 Dose: 1,000 mls/hr Ketorolac Tromethamine (Toradol) 15 mg IV NOW ONE Stop: 10/24/18 23:44 Last Admin: 10/24/18 23:49 Dose: 15 mg Ondansetron HCl (Zofran Odt) 4 mg SL NOW ONE Stop: 10/24/18 19:00 Last Admin: 10/24/18 19:54 Dose: 4 mg Ondansetron HCl (Zofran) 4 mg IV NOW ONE Stop: 10/24/18 22:40 Last Admin: 10/24/18 22:40 Dose: 4 mg Oxycodone/Acetaminophen (Percocet 5/325) 2 tab PO NOW ONE Stop: 10/24/18 19:00 Last Admin: 10/24/18 20:20 Dose: Not Given Prochlorperazine (Compazine) 10 mg IM NOW ONE Stop: 10/24/18 21:01 Last Admin: 10/24/18 20:50 Dose: 10 mg Vital Signs - 8 hr 10/24/18 22:00 10/25/18 00:08 10/25/18 01:56 Temperature 97.6 F Pulse Rate 91 H 96 H 94 H Respiratory Rate 15 16 Blood Pressure 148/90 H Blood Pressure [Left Arm] 118/79 130/115 H Pulse Oximetry 99 98 100 10/25/18 05:07 Temperature 97.9 F Pulse Rate Respiratory Rate Blood Pressure Blood Pressure [Left Arm] Pulse Oximetry MDM - Abdominal Pain <Ana Luisa Hanks PA-C - Last Filed: 10/24/18 22:45> Lab Data Result diagrams: 10/24/18 22:37 10/24/18 22:37 Lab Results 10/24/18 10/24/18 10/24/18 Range/Units 22:37 22:37 22:37 WBC 8.4 (4.5-11.0) X10^3/uL RBC 4.42 (4.0-5.2) X10^6/uL Hgb 13.1 (12.0-16.0) g/dL Hct 37.2 (36-46) % MCV 84.3 (80-100) fL MCH 29.6 (26-34) PG MCHC 35.1 (30-36) % RDW 11.9 (11.6-14.8) % Plt Count 527 H (150-400) X10^3/uL Neut % (Auto) 63.7 (50-75) % Lymph % (Auto) 29.5 (25-40) % [place]ades % (Auto) 4.9 (3-14) % Eos % (Auto) 1.3 L (2-4) % Baso % (Auto) 0.6 (0-2) % Neut # (Auto) 5300 (7349-3129) /uL Lymph # (Auto) 2500 (3503-7974) /uL [place] # (Auto) 400 (0-900) /uL Eos # (Auto) 100 (0-450) /uL Baso # (Auto) 100 (0-100) /uL Sodium 136 L (137-145) mmol/L Potassium 4.2 (3.4-5.1) mmol/L Chloride 104 (98-107) mmol/L Carbon Dioxide 23 (22-32) mmol/L BUN 19 H (7-17) mg/dL Creatinine 0.70 (0.52-1.04) mg/dL Estimated GFR > 60.0 (>60) mL/min BUN/Creatinine Ratio 27.1 H (6-22) Glucose 93 (70-100) mg/dL Lactate 0.7 (0.7-2.1) mmol/L Calcium 9.6 (8.4-10.2) mg/dL Total Bilirubin 0.8 (0.2-1.3) mg/dL AST 38 H (14-36) IU/L ALT 47 (9-52) IU/L Alkaline Phosphatase 87 (38-126) U/L Total Protein 7.7 (6.3-8.2) g/dL Albumin 4.4 (3.5-5.0) g/dL Globulin 3.3 (1.7-4.1) g/dL Albumin/Globulin Ratio 1.3 (1.0-2.8) Lipase 176 (23-300) U/L Point of care testing: Urine Dip Bedside Urine Glucose Negative Bedside Urine Bilirubin + 1 Bedside Urine Ketone +/- 5 Urine Specific [place] 1.025 Bedside Urine Occult Blood - Negative Bedside Urine pH 6.0 Bedside Urine Protein +/- 15 Bedside Urine Urobilinogen +/- 1mg Bedside Urine Nitrite - Negative Bedside Urine Leukocytes - Negative Esterase Imaging Data pelvis: Radiologist's impression: 28 Ana Luisa Hanks PA-C Find Patient Imaging Linda Siu Hal 28 F 1990 ACTIVITY DATE EXAM STATUS AUTHOR 10/24/18 17:45 Signed Abigail Stinson ORDER STATUS ORDER START ORDER DETAIL CT abdomen pelvis w con Ordered 10/24/18 19:[address] [address] Ultrasound Report Signed Patient: Linda Siu [facility]#: [id number] : 1990Acct:[id number] Age/Sex: 28 FDate of Service: 10/24/18 Loc: ED Accession Number: [id number] Procedure: US pelvic complete Ordering Provider: Gabo Rivas D.O. PROCEDURE: US PELVIC COMPLETE INDICATIONS: LEFT PELVIC PAIN TECHNIQUE: Real-time scanning was performed of the pelvic organs, with image documentation. Additional endovaginal scanning was necessary due to incomplete visualization of the adnexal and endometrial structures by transabdominal scanning. COMPARISON: None. FINDINGS: Transabdominal scanning: Limited scanning through the kidneys shows no hydronephrosis. No pathologic free abdominal or pelvic fluid. Endovaginal scanning: Uterus: Uterus is surgically absent. Ovaries: Right adnexa measures 2.9 x 1.6 x 2.8 cm. Right adnexa sonographically normal. Left adnexa is not visualized and cannot be evaluated. IMPRESSION: 1. Status post hysterectomy. 2. Right adnexa sonographically normal. 3. Left adnexa not visualized and cannot be evaluated. Dictated by: Abigail Stinson MD, PhD on 10/24/2018 at 19:29 Approved by: Abigail Stinson MD, PhD on 10/24/2018 at 19:30 <Yemi Carranza, DO - Last Filed: 10/25/18 05:22> Lab Data Lab Results 10/24/18 10/24/18 10/24/18 Range/Units 22:37 22:37 22:37 WBC 8.4 (4.5-11.0) X10^3/uL RBC 4.42 (4.0-5.2) X10^6/uL Hgb 13.1 (12.0-16.0) g/dL Hct 37.2 (36-46) % MCV 84.3 (80-100) fL MCH 29.6 (26-34) PG MCHC 35.1 (30-36) % RDW 11.9 (11.6-14.8) % Plt Count 527 H (150-400) X10^3/uL Neut % (Auto) 63.7 (50-75) % Lymph % (Auto) 29.5 (25-40) % Glades % (Auto) 4.9 (3-14) % Eos % (Auto) 1.3 L (2-4) % Baso % (Auto) 0.6 (0-2) % Neut # (Auto) 5300 (0992-3385) /uL Lymph # (Auto) 2500 (8540-5173) /uL [place]ades # (Auto) 400 (0-900) /uL Eos # (Auto) 100 (0-450) /uL Baso # (Auto) 100 (0-100) /uL Sodium 136 L (137-145) mmol/L Potassium 4.2 (3.4-5.1) mmol/L Chloride 104 (98-107) mmol/L Carbon Dioxide 23 (22-32) mmol/L BUN 19 H (7-17) mg/dL Creatinine 0.70 (0.52-1.04) mg/dL Estimated GFR > 60.0 (>60) mL/min BUN/Creatinine Ratio 27.1 H (6-22) Glucose 93 (70-100) mg/dL Lactate 0.7 (0.7-2.1) mmol/L Calcium 9.6 (8.4-10.2) mg/dL Total Bilirubin 0.8 (0.2-1.3) mg/dL AST 38 H (14-36) IU/L ALT 47 (9-52) IU/L Alkaline Phosphatase 87 (38-126) U/L Total Protein 7.7 (6.3-8.2) g/dL Albumin 4.4 (3.5-5.0) g/dL Globulin 3.3 (1.7-4.1) g/dL Albumin/Globulin Ratio 1.3 (1.0-2.8) Lipase 176 (23-300) U/L Point of care testing: Urine Dip Bedside Urine Glucose Negative Bedside Urine Bilirubin + 1 Bedside Urine Ketone +/- 5 Urine Specific [place] 1.025 Bedside Urine Occult Blood - Negative Bedside Urine pH 6.0 Bedside Urine Protein +/- 15 Bedside Urine Urobilinogen +/- 1mg Bedside Urine Nitrite - Negative Bedside Urine Leukocytes - Negative Esterase Discharge Plan Departure Patient Disposition: Admitted as Observation Clinical Impression: Acute left lower quadrant pain Discharge Date/Time: 10/25/18 01:41 Interventions: ED Discharge Assessment Last Done: 10/25/18 01:38 Admit Date/Time: 10/25/18 00:43 Admit Provider: Facundo Hartman ED Cosign/Signout <Ana Luisa Hanks PA-C - Last Filed: 10/24/18 22:45> Sign Out Provider Sign Out Attestation: Reviewed with patient lack of acute findings on CT scan, however she is still unable to tolerate oral fluids at, still having pain. 3rd nurse who tried her IV this evening was able to obtain at 10:45 p.m., fluids are running and labs are pending. Dr. Carranza will monitor and review results. Patient informed
--- NOTE | 2018-10-24 18:52 | PC.NURSE ---
difficult iv start x2, unsuccessful.
--- NOTE | 2018-10-24 19:19 | DI.CT.S_ITS ---
PROCEDURE: CT ABDOMEN PELVIS WO CON INDICATIONS: L pelvis/LQ pain, ovary not seen on US TECHNIQUE: After the administration of oral contrast, 5 mm thick sections acquired from the diaphragms to the symphysis. 5 mm coronal and sagittal reformats were performed. For radiation dose reduction, the following was used: automated exposure control, adjustment of mA and/or kV according to patient size. COMPARISON: [facility], CT, ABDOMEN/PELVIS WITH CONTRAST, 04/21/2014, 14:13. FINDINGS: Image quality: Excellent. ABDOMEN: Lung bases: Lung bases are clear. Heart size is normal. Solid organs: Liver is normal in size. Gallbladder is within normal limits. Pancreas is normal in size. Spleen is normal in size. No adrenal nodules. Both kidneys are normal in size, without hydronephrosis or nephrolithiasis. Peritoneum and bowel: Bowel loops demonstrate normal wall thickness and caliber. No free fluid or air. Nodes and vessels: No retroperitoneal or mesenteric adenopathy by size criteria. Aorta and inferior vena cava are normal in size. Miscellaneous: No ventral hernias. PELVIS: Genitourinary: Bladder wall thickness is normal. Uterus is absent. Ovaries are identified and have normal morphology Miscellaneous: No inguinal hernias or adenopathy. Bones: No suspicious bony lesions. No vertebral body compression fractures. IMPRESSION: 1. No acute disease process. 2. Ovaries have normal morphology. Please note adnexal pathology including ovarian torsion cannot be excluded by CT imaging. 3. No free fluid or air. 4. No dilated loops of bowel. Dictated by: Abigail Stinson MD, PhD on 10/24/2018 at 21:12 Approved by: Abigail Stinson MD, PhD on 10/24/2018 at 21:16
[2018-10-24] MEDS: ONDANSETRON 4 MG ODT SL (19:54)
[2018-10-24] MEDS: HYDROMORPHONE 2 MG INJ IM (19:55)
[2018-10-24] MEDS: PROCHLORPERAZINE 10 MG/2 ML VIAL IM (20:50)
[2018-10-24 21:00] VITALS: BP 104/69; PULSE 97; O2SAT 96
[2018-10-24] MEDS: HYDROMORPHONE 2 MG INJ 1 MG SUBCUT (21:32)
[2018-10-24 22:00] VITALS: BP 118/79; PULSE 91; RESP 15; O2SAT 99
[2018-10-24] MEDS: ONDANSETRON 4 MG/2 ML INJ IV (22:40)
[2018-10-24] MEDS: SODIUM CHLORIDE 0.9% 1,000 ML 1000 ML IV (22:40)
[2018-10-24 22:48] LABS: Add Manual Diff / Slide Review NO; Basophils Absolute Auto 100 /uL (0-100); Basophils Percent Auto 0.6 % (0-2); Eosinophils Absolute Auto 100 /uL (0-450); Eosinophils Percent Auto 1.3 % (2-4); Hematocrit 37.2 % (36-46); Hemoglobin 13.1 g/dL (12.0-16.0); Lymphocytes Absolute Auto 2500 /uL (1100-4500); Lymphocytes Percent Auto 29.5 % (25-40); Mean Corpuscular HGB Conc 35.1 % (30-36); Mean Corpuscular Hemoglobin 29.6 PG (26-34); Mean Corpuscular Volume 84.3 fL (80-100); Monocytes Absolute Auto 400 /uL (0-900); Monocytes Percent Auto 4.9 % (3-14); Neutrophils Absolute Auto 5300 /uL (1500-7000); Neutrophils Percent Auto 63.7 % (50-75); Platelet Count 527 X10^3/uL (150-400); Red Blood Cell Count 4.42 X10^6/uL (4.0-5.2); Red Cell Distribution Width 11.9 % (11.6-14.8); White Blood Cell Count 8.4 X10^3/uL (4.5-11.0)
[2018-10-24 22:56] LABS: Alanine Aminotransferase 47 IU/L (9-52); Albumin 4.4 g/dL (3.5-5.0); Albumin Globulin Ratio 1.3 (1.0-2.8); Alkaline Phosphatase 87 U/L (38-126); Aspartate Aminotransferase 38 IU/L (14-36); BUN Creatinine Ratio 27.1 (6-22); Bilirubin Total 0.8 mg/dL (0.2-1.3); Blood Urea Nitrogen 19 mg/dL (7-17); Calcium 9.6 mg/dL (8.4-10.2); Carbon Dioxide 23 mmol/L (22-32); Chloride 104 mmol/L (98-107); Estimated Glomerular Filt Rate > 60.0 mL/min (>60); Globulin 3.3 g/dL (1.7-4.1); Glucose 93 mg/dL (70-100); HEMOLYSIS < 15 (0-50); Lipase 176 U/L (23-300); Potassium 4.2 mmol/L (3.4-5.1); Sodium 136 mmol/L (137-145); Total Protein 7.7 g/dL (6.3-8.2)
[2018-10-24 23:23] LABS: Lactate (Lactic Acid) 0.7 mmol/L (0.7-2.1)
[2018-10-24] MEDS: KETOROLAC 60 MG/2 ML VIAL 15 MG IV (23:49)
[2018-10-25] VITALS (8 sets, daily range): BP systolic 101–148; BP diastolic 42–115; PULSE 80–98; RESP 16–20; TEMP 36.3–36.7; O2SAT 97–100; BMI 38.0
[2018-10-25] MEDS: SODIUM CHLORIDE 0.9% 1,000 ML 125 ML IV ×3 (02:18→18:04)
[2018-10-25] MEDS: HYDROMORPHONE PCA (6MG/30ML) 6 MG/30 ML PCA.VIAL IV ×3 (02:18→23:48)
[2018-10-25] MEDS: ONDANSETRON 4 MG/2 ML INJ IV ×4 (02:27→20:45)
--- NOTE | 2018-10-25 02:53 | PC.NURSE ---
Admission note: Pt arrived on unit at 0150 via wheelchair accompanied by ED LINING VAMPER. Pt self transferred to hospital bed, AxOx4, able to make needs known, ambulated independently to the bathroom before being connected to IV Fluids and BUSINESS LAW TEACHER pump. Pt oriented to room, call light, BUSINESS LAW TEACHER button, safety measures in place, bed alarm activated d/t BUSINESS LAW TEACHER Dilaudid, and pt acknowledged all teaching and instructions. Assessment notable for abdominal pain, tenderness with palpation, with nausea and vomiting, bowel tones and flatus are present. All other systems are within normal limits. Pt reported getting relief from 7/10 pain on numeric scale with BUSINESS LAW TEACHER. Will continue to monitor.
--- NOTE | 2018-10-25 11:42 | PC.NURSE ---
Addendum entered by Marlyn Chapman R.N. 10/25/18 14:33: 1330 Assumed care of Pt, Dr Saldivar into see pt 1400. POC updated Torodol added for Pain control. Dr Saldivar will be covering as PCP Plan is to monitor overnight and potential exploratory tomorrow , per Pt. Original Note: Addendum entered by Terri Muse R.N. 10/25/18 13:30: Called Dr. Saldivar's office around 1255, spoke with RN, requesting timeline for Dr. Saldivar to assess pt. As pt is getting very anxious. New order for prn Reglan given at 1155 with OKAY effect. Pt requesting more anti-emetics at 1310. IV Zofran prn given. OUTBOUND CALL CENTER REPRESENTATIVE cleared at 1315 with syringe change. Cleared pump for 4.6mg. Report given to EUFEMIA Cline at 1320. Original Note: Day Shift- At 1142, left message with Dr. Hartman's RN at office ([place]), request for more of Zofran IV prn or another nausea med. Last Zofran IV prn given at 0908, pt continues to be nauseated. Ambulated in hallway X1 with SBA with ACCOUNT SERVICES MANAGER. Toelrated well. OUTBOUND CALL CENTER REPRESENTATIVE Dilaudid in place, effective pain management, pain to Left lower pelvic area 5-7/10, aching, sharp, shooting constant. Pt remains NPO. Mouth moisturizer and mouth swabs given for comfort.
--- NOTE | 2018-10-25 11:51 | P.HP_ITS ---
History of Present Illness Date Patient Seen: 10/25/18 Time Patient Seen: 07:24 Chief complaint: LLQ ABD PAIN Narrative: Patient seen and evaluated this morning. She was admitted late last night with left lower quadrant abdominal pain. Pain symptoms started about 24 hours ago having constant. An unrelenting. She presented to the emergency department for evaluation. Patient has a complex gynecological history with a history of endometriosis. Multiple diagnostic laparoscopies she said for a hysterectomy in May of 2018. Because of her left lower quadrant abdominal pain in her gynecological history she had a workup and evaluation in the emergency room. She had an ultrasound done which showed no uterus right ovary normal left ovary was not visualized CT scan showed no significant pathological findings. There was concern initially for potential ovarian torsion. She was a dmitted further for evaluation and management of her pain and potential of ovarian torsion or pathology. On my exam she is sleeping comfortably in bed. She says she does not have pain right now as the pain medication it is working well for her. She describes her pain is consistent left lower quadrant. 7/10 on the pain scale. When she has it. The pain is not worsened with twisting turning. It has not worsened over time. It has now been approximately 12 hours. Reviewed with her her diagnostic findings from the emergency department. Patient has no other symptoms headache dizziness chest pain shortness of breath nausea or vomiting. Patient History Medical History Acne (Chronic 2006) Ankle pain (Chronic 2014) Chronic headaches (Chronic 2007) Eczema (Chronic 1999) Endometriosis (Chronic 2007) Herpes (Chronic 2014) History of heavy periods (Chronic 2006) Migraines (Chronic 2007) Painful menstrual periods (Chronic 2003) Abnormal Pap smear of cervix (Resolved 2013) Gastric ulcer (Resolved 2015) HPV (human papilloma virus) infection (Resolved 2013) Ovarian cyst (Resolved 2007) Surgical History History of orthopedic surgery (Resolved 07/16/15) History of tonsillectomy (Resolved 06/2010) Status post appendectomy (Resolved 01/2008) Status post laparoscopy (Resolved 2007) Status post laparoscopy (Resolved 2009) Status post laparoscopy (Resolved 07/19/14) Status post ovarian cystectomy (Resolved 2007) Family History (Updated 01/12/18 @ 13:13 by Shira Wiseman) Grandfather Age: 81 Colon cancer Grandmother Age: 80 Scoliosis Grandfather Lung cancer Mother Oral cancer Social History Smoking Status: Never smoker Family & Social History Family History (System 10/25/18 @ 09:05 by Ange Peñaloza) Grandfather Age: 81 Colon cancer Grandmother Age: 80 Scoliosis Grandfather Lung cancer Mother Oral cancer Social History: household members spouse Prior Living Arrangements Apartment/Condo Safety & Behavioral: Feels Safe in Current Yes Environment Been Physically Hurt or No Threatened By a Person Suicidal Ideation Description None Suicide Plan Description No Plan Tobacco & Substance use: Smoking Status Never smoker alcohol intake frequency 0-2 drinks per day Substance Use Type does not use Meds Home Medications Medication Instructions Recorded Confirmed Type valacyclovir 1 gram tablet 500 mg PO BID PRN 12/06/17 10/25/18 History Allergies Allergy/AdvReac Type Severity Reaction Status Date / Time azithromycin [AZITHROMYCIN] Allergy Severe rash/throat Verified 10/25/18 09:05 swelling topiramate [TOPIRAMATE] Allergy Intermediate Rash Verified 10/25/18 09:05 codeine [CODEINE] AdvReac Severe Heartburn Verified 10/25/18 09:05 tramadol [TRAMADOL] AdvReac Intermediate Vomiting Verified 10/25/18 09:05 Exam Vital Signs (past 8 hours): - 10/25/18 05:07 10/25/18 08:25 Temperature 97.9 F 97.5 F L Pulse Rate 81 Respiratory Rate 16 Blood Pressure 101/70 Pulse Oximetry 97 Oxygen Delivery Method Room Air Oxygen Flow Rate 0 Narrative Exam Narrative: Gen.: Alert somewhat sleepy HEENT: Pupils equal round and reactive or mucosa is moist Cardio: S1-S2 regular rate and rhythm no murmurs appreciated. Respiratory: Lungs are clear to auscultation no wheezes or crackles normal respiratory effort. Abdomen: Left lower quadrant tenderness. Mild guarding no significant rebound. Extremities: Full range of motion no appreciable weakness no cyanosis or edema. Neurologic: Grossly intact. Objective Labs Result Diagrams: 10/24/18 22:37 10/24/18 22:37 Labs: Laboratory Results - last 24 hr 10/24/18 10/24/18 10/24/18 22:37 22:37 22:37 WBC 8.4 RBC 4.42 Hgb 13.1 Hct 37.2 MCV 84.3 MCH 29.6 MCHC 35.1 RDW 11.9 Plt Count 527 H Neut % (Auto) 63.7 Lymph % (Auto) 29.5 Frederick % (Auto) 4.9 Eos % (Auto) 1.3 L Baso % (Auto) 0.6 Neut # (Auto) 5300 Lymph # (Auto) 2500 Frederick # (Auto) 400 Eos # (Auto) 100 Baso # (Auto) 100 Sodium 136 L Potassium 4.2 Chloride 104 Carbon Dioxide 23 BUN 19 H Creatinine 0.70 Estimated GFR > 60.0 BUN/Creatinine Ratio 27.1 H Glucose 93 Lactate 0.7 Calcium 9.6 Total Bilirubin 0.8 AST 38 H ALT 47 Alkaline Phosphatase 87 Total Protein 7.7 Albumin 4.4 Globulin 3.3 Albumin/Globulin Ratio 1.3 Lipase 176 Assessment & Plan Assessment & Plan narrative: Left lower quadrant abdominal pain in a patient with complex gynecological history. Cannot rule out ovarian torsion. She has remained stable over night. Pain has not increased or worsened but has not gone away. Pain it is moderate to severe in intensity. It is responding well to Dilaudid. Her examination has some mild guarding. Patient has seen Dr. Saldivar previously. Will have consultation with her today. Dr. Saldivar says she will see and evaluate the patient for potential surgical procedures. From a gynecological standpoint. As Dr. Saldivar is her primary care physician we will turn over management and care of this patient to her. Until her evaluation will continue with pain medication and antinausea medication. Quality VTE Deep Vein Thrombosis/Pulmonary Embolism Present on Admission: No
[2018-10-25] MEDS: METOCLOPRAMIDE 10 MG/2 ML INJ 5 MG IV ×2 (11:57→21:48)
[2018-10-25] MEDS: KETOROLAC 30 MG/ML VIAL IV ×2 (18:03→23:50)
--- NOTE | 2018-10-25 20:04 | P.HP_ITS ---
History of Present Illness Date Patient Seen: 10/25/18 Time Patient Seen: 13:25 Chief complaint: LLQ ABD PAIN Narrative: Patient is a 28-year-old 0 who presented last evening to the emergency department for persistent left lower quadrant pain Patient has had nausea and vomiting. No fever or chills. No diarrhea. She has a known history of endometriosis and has had 5 surgeries including 4 laparoscopies and a hysterectomy. Patient History Medical History Acne (Chronic 2006) Ankle pain (Chronic 2014) Chronic headaches (Chronic 2007) Eczema (Chronic 1999) Endometriosis (Chronic 2007) Herpes (Chronic 2014) History of heavy periods (Chronic 2005) Migraines (Chronic 2007) Painful menstrual periods (Chronic 2003) Abnormal Pap smear of cervix (Resolved 2013) Gastric ulcer (Resolved 2015) HPV (human papilloma virus) infection (Resolved 2013) Ovarian cyst (Resolved 2007) Surgical History History of orthopedic surgery (Resolved 07/16/15) History of tonsillectomy (Resolved 06/2010) Status post appendectomy (Resolved 01/2008) Status post laparoscopy (Resolved 2007) Status post laparoscopy (Resolved 2009) Status post laparoscopy (Resolved 07/19/14) Status post ovarian cystectomy (Resolved 2007) Family History (Updated 01/12/18 @ 13:13 by Shira Wiseman) Grandfather Age: 81 Colon cancer Grandmother Age: 80 Scoliosis Grandfather Lung cancer Mother Oral cancer Social History Smoking Status: Never smoker Family & Social History Family History (System 10/25/18 @ 09:05 by Ange Peñaloza) Grandfather Age: 81 Colon cancer Grandmother Age: 80 Scoliosis Grandfather Lung cancer Mother Oral cancer Social History: household members spouse Prior Living Arrangements Apartment/Condo Safety & Behavioral: Feels Safe in Current Yes Environment Been Physically Hurt or No Threatened By a Person Suicidal Ideation Description None Suicide Plan Description No Plan Tobacco & Substance use: Smoking Status Never smoker alcohol intake frequency 0-2 drinks per day Substance Use Type does not use Meds Home Medications Medication Instructions Recorded Confirmed Type valacyclovir 1 gram tablet 500 mg PO BID PRN 12/06/17 10/25/18 History Allergies Allergy/AdvReac Type Severity Reaction Status Date / Time azithromycin [AZITHROMYCIN] Allergy Severe rash/throat Verified 10/25/18 09:05 swelling topiramate [TOPIRAMATE] Allergy Intermediate Rash Verified 10/25/18 09:05 codeine [CODEINE] AdvReac Severe Heartburn Verified 10/25/18 09:05 tramadol [TRAMADOL] AdvReac Intermediate Vomiting Verified 10/25/18 09:05 Exam Vital Signs (past 8 hours): - 10/25/18 15:22 Temperature 97.9 F Pulse Rate 80 Respiratory Rate 20 Blood Pressure 125/42 L Pulse Oximetry 100 Oxygen Delivery Method Room Air Oxygen Flow Rate 0 Narrative Exam Narrative: Generally: Patient lying in bed on her right side, she is in mild distress secondary to left lower quadrant pain Lungs: Clear to auscultation bilaterally Cardiovascular: Regular rate and rhythm Abdomen: Well-healed laparoscopy scars. No guarding or rebound tenderness. Significant tenderness to deep palpation in the left lower quadrant. Objective Labs Result Diagrams: 10/24/18 22:37 10/24/18 22:37 Labs: Laboratory Results - last 24 hr 10/24/18 10/24/18 10/24/18 22:37 22:37 22:37 WBC 8.4 RBC 4.42 Hgb 13.1 Hct 37.2 MCV 84.3 MCH 29.6 MCHC 35.1 RDW 11.9 Plt Count 527 H Neut % (Auto) 63.7 Lymph % (Auto) 29.5 [place] % (Auto) 4.9 Eos % (Auto) 1.3 L Baso % (Auto) 0.6 Neut # (Auto) 5300 Lymph # (Auto) 2500 [place] # (Auto) 400 Eos # (Auto) 100 Baso # (Auto) 100 Sodium 136 L Potassium 4.2 Chloride 104 Carbon Dioxide 23 BUN 19 H Creatinine 0.70 Estimated GFR > 60.0 BUN/Creatinine Ratio 27.1 H Glucose 93 Lactate 0.7 Calcium 9.6 Total Bilirubin 0.8 AST 38 H ALT 47 Alkaline Phosphatase 87 Total Protein 7.7 Albumin 4.4 Globulin 3.3 Albumin/Globulin Ratio 1.3 Lipase 176 Ultrasound: Left ovary not visualized. Right ovary normal. CT scan: Left ovary normal size. Assessment & Plan (1) Endometriosis determined by laparoscopy: Current visit: Yes Status: Acute (2) Left lower quadrant pain: Current visit: Yes Status: Acute Assessment & Plan narrative: Assessment: 28-year-old 0 with a known history of endometriosis status post multiple laparoscopies and a laparoscopic hysterectomy in June of 2018. Persistent left lower quadrant pain No ovarian torsion Plan: Continue Dilaudid HOTEL ASSOCIATE overnight If pain not improved by tomorrow will consider diagnostic laparoscopy with possible removal of left ovary Quality VTE Deep Vein Thrombosis/Pulmonary Embolism Present on Admission: No
[2018-10-26] VITALS (16 sets, daily range): BP systolic 90–145; BP diastolic 52–98; PULSE 69–99; RESP 10–18; TEMP 36.3–36.9; O2SAT 95–100; BMI 38.0
[2018-10-26] MEDS: SODIUM CHLORIDE 0.9% 1,000 ML 125 ML IV ×2 (02:29→10:32)
[2018-10-26] MEDS: ONDANSETRON 4 MG/2 ML INJ IV ×4 (02:30→20:22)
[2018-10-26] MEDS: METOCLOPRAMIDE 10 MG/2 ML INJ 5 MG IV ×3 (03:40→23:31)
[2018-10-26] MEDS: KETOROLAC 30 MG/ML VIAL IV ×2 (06:06→13:13)
[2018-10-26] MEDS: OXYCODONE/ACETAMINOPHEN 5/325 TABLET 2 TAB PO (08:59)
--- NOTE | 2018-10-26 10:49 | PC.NURSE ---
Addendum entered by Terri Muse R.N. 10/26/18 14:52: SCHEDULING AGENT Dilaudid shift total is 5.6mg. Pt to OR via bed at 1440, aware at bedside. Original Note: Addendum entered by Terri Muse R.N. 10/26/18 12:00: Spoke with Dr. Saldivar via phone at 1056, restart SCHEDULING AGENT Dilaudid with previous settings, Make NPO, possible surgery later today. SCHEDULING AGENT restarted at 1100, pt and her aware of NPO status, Zofran IV prn given Original Note: Day Shift- Dr. Saldivar in to see pt around 0755, updated with plan of care. Plan to switch pt to prn Percocet, stop SCHEDULING AGENT, Try Regular diet. Percocet 2 tabs given at 0900. Pt took a few spoonfuls of apple sauce and drinking water. Transition off SCHEDULING AGENT. Pt vomited approx 200 mls of yellow fluids. PRN reglan IV and SCHEDULING AGENT Dilaudid stopped at 0940. Pt ambulated in hallways with SBA by around 0955. At 1045, pt c/o 9/10 sharp, shooting, pulsating, throbbing pain to Left lower pelvic area that has radiated to mid abd and upwards to left side abd. Pt lying on left side with ice pack to left side abd and guarding her abd.
[2018-10-26] MEDS: HYDROMORPHONE PCA (6MG/30ML) 6 MG/30 ML PCA.VIAL IV ×2 (11:00→21:14)
[2018-10-26] MEDS: LACTATED RINGERS 1,000 ML 42 ML IV (14:45)
[2018-10-26] MEDS: APREPITANT 40 MG CAPSULE PO (15:10)
[2018-10-26] MEDS: SCOPOLAMINE 1 PATCH TOP (15:11)
[2018-10-26] MEDS: MIDAZOLAM 2 MG/2 ML VIAL IV (15:12)
--- NOTE | 2018-10-26 15:48 | SUR.OPER ---
Lithotomy on padded OR bed, head on pillow, arms secured on padded arm boards at <90 degrees abduction. Legs secured in padded yellow fins stirrups.
[2018-10-26] MEDS: BUPIVACAINE 0.5% W/ EPI (PF) VIAL 30 ML INJ (15:52)
--- NOTE | 2018-10-26 16:02 | CM.DANOTE ---
Discharge Planning/Care Management DCP: assessment: case received, EMR reviewed. Discussed with RN coordinator Khadijah in Team Rounds. Pt is a 28 year old female who admitted to care of [facility]/Dr. Hartman yesterday. He noted her complex surgical history related to her hx of endometriosis and consulted her PCP: Dr. Saldivar who did take over the case. Payer: [employer]. Pt lives with her Gabo in [place] and he has been at the bedside. Dr. Saldivar noted in her H&P of last evening that if pt did not improve with conservative management she would consider taking her to the OR today for a laparoscopy with consideration of removal of L ovary. (pt did have a hysterectomy in May). Review of nursing documentation now shows that pt's symtoms worsened and Dr. Saldivar has now taken pt to the OR this afternoon. Will check in tomorrow and follow prn. CM Discharge Assessment Start: 10/26/18 16:01 Freq: Status: Active Protocol: Document 10/26/18 16:02 ITV (Rec: 10/26/18 16:02 ITV [id number]) Discharge Planning Assessment Advance Directives? No History Provided By Medical Record Prior Living Arrangements Apartment/Condo Household Members spouse Review Status In Process Next Review Type Continued Stay Review
[2018-10-26] MEDS: fentaNYL 100 MCG/2 ML INJ 50 MCG IV ×4 (16:24→17:03)
[2018-10-26] MEDS: LACTATED RINGERS 1,000 ML 125 ML IV (17:56)
--- NOTE | 2018-10-26 18:22 | P.PN_ITS ---
Subjective Date Patient Seen: 10/26/18 Time Patient Seen: 18:21 Interval history: Patient is a 28-year-old 0 who underwent diagnostic laparoscopy with lysis of adhesions and aspiration of left ovarian cyst earlier today. Pain is well controlled. No nausea or vomiting. Exam Vital Signs (past 8 hours): - 10/26/18 12:33 10/26/18 14:51 10/26/18 16:13 Temperature 97.8 F 98 F 98.0 F Pulse Rate 80 83 79 Respiratory Rate 16 16 18 Blood Pressure 122/77 111/75 90/53 L Pulse Oximetry 97 99 96 10/26/18 16:18 10/26/18 16:23 10/26/18 16:33 Temperature Pulse Rate 80 69 73 Respiratory Rate 10 L 13 12 Blood Pressure 102/54 L 103/63 95/59 L Pulse Oximetry 98 99 100 10/26/18 16:44 10/26/18 17:13 10/26/18 17:21 Temperature Pulse Rate 73 77 92 H Respiratory Rate 14 12 14 Blood Pressure 117/61 108/77 114/76 Pulse Oximetry 100 100 97 Oxygen Delivery Method Room Air Oxygen Flow Rate 2 Narrative Exam Narrative: Generally: Patient is sitting up in bed, no acute distress Lungs: Clear to auscultation bilaterally Cardiovascular: Regular rate and rhythm Abdomen: Soft, appropriately tender. Incisions: Clean dry and intact with op site Extremities: SCDs in place Objective Labs Result Diagrams: 10/24/18 22:37 10/24/18 22:37 Assessment & Plan Post-op Postoperative Procedures Operation Date: 10/26/18 14:30 Actual Procedures Side Surgeon p Laparoscopy, Diagnostic, SUPERVISORY FORESTER, LYSIS OF ADHESIONS, ASPIRATION OF LEFT OVARIAN CYST Not Applicable Khushbu Saldivar MD Postoperative day: 0 Postoperative status: doing well Postoperative plan: routine post-op care Postoperative plan narrative: Anticipate discharge 10/27/2018 Time Spent With Patient less than 15 minutes Quality VTE Deep Vein Thrombosis/Pulmonary Embolism Present on Admission: No
[2018-10-26] MEDS: SODIUM CHLORIDE 0.9% FLUSH 10 ML IV (20:25)
[2018-10-27] MEDS: LACTATED RINGERS 1,000 ML 125 ML IV ×2 (02:07→09:51)
[2018-10-27 03:10] VITALS: BP 137/63; PULSE 99; RESP 17; TEMP 36.7; O2SAT 97
[2018-10-27] MEDS: ONDANSETRON 4 MG/2 ML INJ IV ×4 (03:15→16:37)
[2018-10-27] MEDS: HYDROMORPHONE PCA (6MG/30ML) 6 MG/30 ML PCA.VIAL IV (03:54)
--- NOTE | 2018-10-27 06:32 | PC.NURSE ---
Pt. resting/sleeping now, did not sleep well last night. Medicated with Reglan x1 & Zofran x1 for nausea, no emesis noted. Cleared & she used 6.5 mg. of her Dilaudid CONSULTANT EDUCATION set @ 0.2 mg, every 10 mins. 6 mg.limit for 4hrs. Will cont. POc & monitor.
[2018-10-27 07:37] VITALS: BP 132/63; PULSE 76; RESP 16; TEMP 36.4; O2SAT 100
--- NOTE | 2018-10-27 10:27 | PC.NURSE ---
Pt medicated with zofran earlier and helpful with nausea. Pt did tolerate some of her breakfast, at bedside.
[2018-10-27 11:20] VITALS: BP 122/77; PULSE 79; RESP 16; TEMP 36.8; O2SAT 97
[2018-10-27] MEDS: METOCLOPRAMIDE 10 MG/2 ML INJ 5 MG IV (12:39)
[2018-10-27] MEDS: OXYCODONE/ACETAMINOPHEN 5/325 TABLET 2 TAB PO ×2 (13:34→17:35)
--- NOTE | 2018-10-27 13:51 | PC.NURSE ---
Addendum entered by Graciela Panda R.N. 10/27/18 14:25: Pt just had another emesis. Given percocet earlier and reglan, She states that the percocet was helpful for the pain. Pt also sais that when she has had previous surgeries she has always been nauseous and throws up. Lying down and resting at this time. Original Note: Pt had a 100cc emesis after she states she bent over to pick something up. She did eat some lunch and thought that it stayed down well. Stopped patients CORPORATE TAX MANAGER. She used 4.6mg this shift. Gave her reglan and helpful, then pt was given 2 percocet and she is sleeping now.
[2018-10-27 15:10] VITALS: BP 151/74; PULSE 81; RESP 18; TEMP 36.9; O2SAT 100
--- NOTE | 2018-10-27 15:27 | PC.NURSE ---
Pt states that she was dry heaving in the bathroom on her knee's and she sat herself to her bottom and passed out. She is A&Ox3. Moved to chair. VSS and Dr.Garde winkler. in room and states that he called her name and she would not respond. She is doing better and sitting up in the recliner chair.
--- NOTE | 2018-10-27 15:32 | P.OP_ITS ---
Operative Date/Time/Diagnoses Date of procedure: 10/26/18 Time of procedure: 16:15 Pre-op diagnosis: Persistent left lower quadrant pain Known history of endometriosis Post-op diagnosis: same Procedure: Procedures Operation Date: 10/26/18 14:30 Actual Procedures Side Surgeon p Laparoscopy, Diagnostic, AGENCY SALES DEVELOPMENT ASSOCIATE, LYSIS OF ADHESIONS, ASPIRATION OF LEFT OVARIAN CYST Not Applicable Khushbu Saldivar MD Indications: Persistent left lower quadrant pain Known history of endometriosis Surgeon: Khushbu Saldivar Anesthesia Type: General Operative Notes Findings: Normal right ovary Normal liver and gallbladder Cyst above the appendix visible Small 1-1.5 cm simple left ovarian cyst Colon to the pelvic sidewall adhesions Closure Type: primary Specimen(s): none Estimated blood loss (mL): 5 Blood products transfused: none Procedure in detail: After informed consent was obtained, the patient was taken to the operating room where she was placed in the dorsal supine position. After adequate general endotracheal anesthesia was achieved, she was placed in the dorsal lithotomy position, and prepped and draped in the usual sterile fashion. a moistened sponge stick was placed into the vagina. Attention was then turned to the abdomen where 6 cc of 0.5% Marcaine with epinephrine were injected in the umbilical fold. A 5 mm incision was made. The Veress needle was placed into the peritoneal cavity, and its placement confirmed by aspiration and drop test. The abdominal cavity was insufflated with 3.4 L of CO2. The Veress needle was removed, and a 5 mm trocar was placed without difficulty. 2 other incisions were made 4 cm lateral to the midline just below the level of the umbilicus after 6 cc of 0.5% Marcaine with epinephrine were injected. 2 5 mm trocars were placed under direct visualization. The liver and gallbladder were found to be normal. There was a small stub of the appendix visible. The right ovary was normal. The left ovary contained a small 1-1.5 cm simple cyst. There were adhesions between the bowel and the left sidewall. These adhesions were taken down with the Endo Golden. A needle was placed into the left ovary and the cyst was drained. The Endo golden were used to cauterize the left ovarian cyst. There was no evidence of any endometriosis in the cul-de-sac, bilateral pelvic sidewalls, on the bladder, or on the bowel. The instruments were removed from the abdomen. The CO2 was allowed to escape. The incisions were closed with 4 0 undyed Vicryl in a subcuticular fashion. Steri-Strips, 2 x 2, and op site were placed. The moistened sponge stick was removed from the vagina. Sponge, lap, and instrument counts were correct x2. The patient tolerated the procedure well, and was taken to PACU in stable condition. Complications: none Post-operative Condition: stable Plan for aftercare: To acute care after recovery
--- NOTE | 2018-10-27 15:36 | CM.DPC ---
DCP: continued: case discussed in Team Rounds. RN coordinator noted that Dr. Saldivar would be seeing pt later today and anticipated a d/c home if pt doing well. Checked RN Graciela's notes now. Pt had episode of dry-heaving and passing out in the bathroom with pt's alerting Graciela. Dr. Saldivar was paged. DCP team will continue to follow prn.
[2018-10-27] MEDS: LACTATED RINGERS 1,000 ML 1000 ML IV (16:03)
[2018-10-27 16:18] LABS: Add Manual Diff / Slide Review NO; Basophils Absolute Auto 0 /uL (0-100); Basophils Percent Auto 0.3 % (0-2); Eosinophils Absolute Auto 0 /uL (0-450); Eosinophils Percent Auto 0.2 % (2-4); Hematocrit 33.3 % (36-46); Hemoglobin 11.2 g/dL (12.0-16.0); Lymphocytes Absolute Auto 1600 /uL (1100-4500); Lymphocytes Percent Auto 14.5 % (25-40); Mean Corpuscular HGB Conc 33.7 % (30-36); Mean Corpuscular Hemoglobin 29.1 PG (26-34); Mean Corpuscular Volume 86.1 fL (80-100); Monocytes Absolute Auto 900 /uL (0-900); Monocytes Percent Auto 7.6 % (3-14); Neutrophils Absolute Auto 8700 /uL (1500-7000); Neutrophils Percent Auto 77.4 % (50-75); Platelet Count 373 X10^3/uL (150-400); Red Blood Cell Count 3.87 X10^6/uL (4.0-5.2); Red Cell Distribution Width 12.1 % (11.6-14.8); White Blood Cell Count 11.3 X10^3/uL (4.5-11.0)
[2018-10-27 16:31] LABS: BUN Creatinine Ratio 15.7 (6-22); Blood Urea Nitrogen 11 mg/dL (7-17); Calcium 9.2 mg/dL (8.4-10.2); Carbon Dioxide 25 mmol/L (22-32); Chloride 104 mmol/L (98-107); Estimated Glomerular Filt Rate > 60.0 mL/min (>60); Glucose 109 mg/dL (70-100); HEMOLYSIS < 15 (0-50); Potassium 3.9 mmol/L (3.4-5.1); Sodium 137 mmol/L (137-145)
--- NOTE | 2018-10-27 17:59 | PC.NURSE ---
pt was found sitting on the floor bathroom before shift change. notified Dr. Gray VTO for cbc, bmp, 1 bolus of LR. After LR, pt reports feeling better, no dizziness or lightheadedness. no nausea. reported labs, vitals, and pt's current status to Dr. Gray. ok for pt to discharge. pt and agreed and felt comfortable going home. Pt was escorted by SALES ENABLEMENT LEAD to ED exit.
--- NOTE | 2018-11-14 13:45 | PM.DS.1 ---
History of Present Illness Date Patient Seen: 10/27/18 Time Patient Seen: 07:45 Chief complaint: LLQ ABD PAIN Narrative: Patient is a 28-year-old 0 who presented last evening to the emergency department for persistent left lower quadrant pain Patient has had nausea and vomiting. No fever or chills. No diarrhea. She has a known history of endometriosis and has had 5 surgeries including 4 laparoscopies and a hysterectomy. Patient underwent a diagnostic laparoscopy with lysis of adhesions and aspiration of an ovarian cyst. Discharge Providers Date of admission: 10/25/18 00:43 Discharge Date: 10/27/18 Primary care physician: Odette Linares Discharge provider: Khushbu Saldivar MD Summary Discharge Diagnosis: Left lower quadrant pain Left ovarian cyst History of endometriosis Hospital Course: Patient was admitted with nausea, vomiting, and left lower quadrant pain. She underwent a diagnostic laparoscopy with lysis of adhesions and aspiration of a left ovarian cyst without complication. On postop day # 1 she was discharged home. Status at Discharge Cognitive/behavioral status at discharge: oriented Functional status at discharge: independent ambulation Overall status at discharge: patient is progressing back to baseline Time Spent with Patient Less than 30 minutes Exam Vital Signs (past 8 hours): Oxygen Delivery Method Room Air Oxygen Flow Rate 0 Narrative Exam Narrative: Generally: Patient is sitting up in bed, no acute distress Lungs: Clear to auscultation bilaterally Cardiovascular: Regular rate and rhythm Abdomen: Soft, good bowel sounds Incisions: Clean dry and intact with op site Extremities: Negative Homans, no edema Objective Labs Result Diagrams: 10/27/18 16:14 10/27/18 16:14 Discharge Plan Discharge Plan Patient Disposition: Home Discharge comment: Call with fever, chills, redness or drainage around the incisions Discharge Med Rec/Prescriptions Prescriptions: New ondansetron 4 mg tablet,disintegrating 4 mg PO Q6-8H PRN (Reason: nausea and vomiting) Qty: 30 RF: 2 metoclopramide HCl [Reglan] 10 mg tablet 10 mg PO Q6H Qty: 30 RF: 2 Discontinued valacyclovir 1 gram tablet 500 mg PO BID PRN (Reason: Skin Irritation) RF: 0 No Action oxycodone-acetaminophen [Percocet] 5-325 mg tablet 1 tab PO Q4-6H PRN (Reason: pain) Qty: 30 RF: 0 Follow up/Referrals: Khushbu Saldivar MD [Physician] - 2 Weeks Provider Discharge Instructions Diet: Regular Skin/Wound/Dressing Care Report to your healthcare provider any signs of infection, such as:: chills, fever, increased pain, unusual drainage and unusual redness Dressing: Remove outer plastic dressings and guaze tomorrow after a shower Visit Report/Discharge Packet Instructions: DI for Laparoscopy Discharge Data Primary Care Provider: Odette Linares Attending Provider: Khushbu Saldivar Admit Date/Time: 10/25/18 00:43 Discharges patient from system. Discharge Date/Time: 10/27/18 17:53 Quality VTE Deep Vein Thrombosis/Pulmonary Embolism Present on Admission: No
== END 2018-10-27 17:53 | disposition home or self-care (01) | DRG 743 ==
LOC: ED 10-25 00:29 → AC 10-25 06:46
PROVIDERS: Internal Medicine; Admitting Provider Family Medicine; Emergency Provider Emergency Medicine; Family Provider Nurse Practitioner; PCP Nurse Practitioner Family; Visit Provider Obstetrics & Gynecology
PROC: 0U914ZX Drainage of Left Ovary, Percutaneous Endoscopic Approach, Diagnostic (ICD-10-PCS; CPT 49320; principal; 2018-10-26 14:30)
DX: N83.202 Unspecified ovarian cyst, left side (principal); N80.9 Endometriosis, unspecified
CPT/HCPCS: 36591; 58662; 74176; 76830; 76856; 80048; 80053; 81003; 83605; 83690; 85025; 96361; 96372; 96374; 96375; 99284; J0780; J1100; J1170; J1642; J1885; J2250; J2405; J2704; J2765; J3010; J8501

== ENCOUNTER 2019-05-28 08:28 | Day surgery (SDC) | payer OTHER, SELFPAY ==
[2018-10-25 01:50] VITALS: BMI 38.0
[2019-05-21 11:52] VITALS: BMI 39.0
[2019-05-28] VITALS (16 sets, daily range): BP systolic 82–127; BP diastolic 41–87; PULSE 79–107; RESP 12–100; TEMP 36.1–36.5; O2SAT 16–100; BMI 39.0
--- NOTE | 2019-05-28 | PATH_ITS ---
[facility] Accession Number: [id number] . 01 Material submitted: . body - LEFT OVARIAN CYST . 02 Diagnosis: Left Ovarian Cyst, Cystectomy: Benign follicular cyst. Ovarian cortical granulomas, necrotizing. Please see comment. Negative for mycobacteria and fungal organisms by special stains. No evidence of neoplasia. [facility] 06/01/2019 1620 Local . 02 Comment: The left ovarian cyst fragments show evidence of a benign follicular cyst as well as necrotizing granulomas, which are negative for mycobacteria and fungal organisms by special stains. Necrotizing cortical granulomas can be idiopathic, but can also be due to reaction from a prior operative procedure, Crohn's disease, infection, and endometriosis. Clinical correlation is recommended. . 02 Electronically signed: . Kristy Brandt MD, Pathologist NPI- [id number] . 01 Gross description: . The specimen is received in a formalin-filled container labeled left ovarian cyst and consists of two unoriented pink-unger smooth to cauterized soft tissue fragments grossly consistent with possible fragments of previously collapsed ovarian cyst, 1.4 cm up to 2.5 cm which have a combined weight of 1.0 grams. The presumed serosa is inked blue and the cyst linings are pink-unger and smooth. There is a single thin-walled clear to straw colored fluid filled intact cyst within the larger ovarian tissue up to 0.8 cm which has smooth linings. The remaining cut surfaces are focally hemorrhagic otherwise unremarkable. . The specimen is entirely submitted as follows: A1 - smaller ovarian tissue fragment sectioned entirely submitted; A2 through A3 - larger ovarian fragment sectioned entirely submitted. ([id number]) /[facility] 05/29/2019 1626 Local . 02 Microscopic: . An immunohistochemical stain for CD68 was performed to characterize the cells of interest and is positive in cells around areas suspicious for granulomatous inflammation. The control stain showed appropriate reactivity. AFB and GMS stains were performed in order to evaluate for mycobacteria and fungal organisms, respectively, and are both negative. The control stains showed appropriate reactivity. . * This test was developed and its performance characteristics determined by [facility]. It has not been cleared or approved by the U.S. Food and Drug Administration. The FDA has determined that such clearance or approval is not necessary. This test is used for clinical purposes. It should not be regarded as investigational or for research. . 02 Pathologist provided ICD-10: N83.209 . 02 CPT . 472885, 596454, 342973, U70016 Performed at: 01 [facility] [address] [place] [address], [place], [place] [id number] MD Chucho Hernandez MD Phone: [phone] Performed at: 02 [facility] [address] [place], [place] [id number] MD Kristy Brandt MD Phone: [phone]
[2019-05-28] MEDS: LACTATED RINGERS 1,000 ML 100 ML IV ×2 (09:03→12:45)
[2019-05-28] MEDS: APREPITANT 40 MG CAPSULE PO (10:04)
--- NOTE | 2019-05-28 10:12 | PM.PREOP ---
Pre-operative Note Interval Note History & Physical reviewed/Exam performed by Physician: Yes Changes to H&P: No
--- NOTE | 2019-05-28 10:13 | PM.HP.1 ---
History of Present Illness History of Present Illness Date Patient Seen: 05/28/19 Time Patient Seen: 10:13 Chief complaint: [id number] Narrative: Patient is a 29-year-old 2 para 0 who presents for a laparoscopic removal of a persistent left ovarian cyst Patient History Medical History (Updated 10/25/18 @ 20:03 by Khushbu Saldivar MD) Abnormal Pap smear of cervix (Resolved 2013) Acne (Chronic 2006) Ankle pain (Chronic 2014) Chronic headaches (Chronic 2007) Eczema (Chronic 1999) Endometriosis (Chronic 2007) Gastric ulcer (Resolved 2015) Herpes (Chronic 2014) History of heavy periods (Chronic 2005) HPV (human papilloma virus) infection (Resolved 2013) Migraines (Chronic 2007) Ovarian cyst (Resolved 2007) Painful menstrual periods (Chronic 2003) Surgical History (Updated 05/21/19 @ 12:04 by Sydnee Colby RN) History of laparoscopy (Acute 10/27/18) History of orthopedic surgery (Resolved 07/16/15) History of tonsillectomy (Resolved 06/2010) S/P laparoscopy (Resolved 10/26/18) Status post appendectomy (Resolved 01/2008) Status post laparoscopy (Resolved 2007) Status post laparoscopy (Resolved 2009) Status post laparoscopy (Resolved 07/19/14) Status post ovarian cystectomy (Resolved 2007) Family & Social History Family History (System 10/25/18 @ 09:05 by Ange Peñaloza) Grandfather Age: 82 Colon cancer Grandmother Age: 81 Scoliosis Grandfather Lung cancer Mother Oral cancer Social History: household members spouse Tobacco & Substance use: Smoking Status Never smoker alcohol intake current alcohol intake frequency 0-2 drinks per day Substance Use Type does not use Meds Home Medications and Allergies Home Medications Medication Instructions Recorded Confirmed Type ondansetron 4 mg PO Q6-8H PRN #30 tab 10/27/18 05/28/19 Rx oxycodone-acetaminophen 5 mg-325 1 tab PO Q4-6H PRN #20 tab 05/08/19 05/28/19 Rx mg tablet Allergies Allergy/AdvReac Type Severity Reaction Status Date / Time azithromycin [AZITHROMYCIN] Allergy Severe rash/throat Verified 05/28/19 08:53 swelling topiramate [TOPIRAMATE] Allergy Intermediate Rash Verified 05/28/19 08:53 codeine [CODEINE] AdvReac Severe Heartburn Verified 05/28/19 08:53 tramadol [TRAMADOL] AdvReac Intermediate Vomiting Verified 05/28/19 08:53 Exam Vital Signs (past 8 hours): - 05/28/19 08:33 Temperature 97.7 F Pulse Rate 89 Respiratory Rate 100 H Blood Pressure 122/86 Pulse Oximetry 16 L Oxygen Delivery Method Room Air Narrative Exam Narrative: HEENT: No thyromegaly, no anterior cervical or supraclavicular lymphadenopathy. Lungs:Clear to auscultation bilaterally, no wheezes. Cardiovascular: Regular rate and rhythm, no murmurs, rubs, or gallops. Abdomen: Multiple well-healed laparoscopy scars. No hepatosplenomegaly. No masses palpable. External genitalia: Normal Vagina: Normal Cervix: Normal Bimanual exam: 6 week size anteverted uterus. Rectal: No masses. Assessment & Plan Assessment & Plan narrative: Assessment: 29-year-old 2 para 0 with a persistent left ovarian cyst and a history of endometriosis Plan: Laparoscopic removal of the cyst, possible lysis of adhesions, possible fulguration of endometriosis The risks, benefits, and alternatives to the procedure were explained to the patient. The risks including bleeding, infection, injury to the bowel, bladder, or ureters. She understands these risks and agrees to proceed. A full par Q was held and consent form was signed.
--- NOTE | 2019-05-28 11:26 | SUR.OPER ---
Lithotomy on padded OR bed, head on pillow, arms padded and tucked at sides. Legs secured in padded yellow fins stirrups.
[2019-05-28] MEDS: BUPIVACAINE 0.5% W/ EPI (PF) VIAL 30 ML INJ (11:31)
[2019-05-28] MEDS: ONDANSETRON 4 MG/2 ML INJ IV ×2 (12:00→13:27)
[2019-05-28] MEDS: HYDROMORPHONE 2 MG INJ IV ×5 (12:01→13:37)
[2019-05-28] MEDS: METOCLOPRAMIDE 10 MG/2 ML INJ IV (12:10)
[2019-05-28] MEDS: fentaNYL 100 MCG/2 ML INJ IV ×4 (12:22→13:12)
[2019-05-28] MEDS: OXYCODONE/ACETAMINOPHEN 5/325 TABLET 1 TAB PO (12:42)
[2019-05-28] MEDS: LORazepam 2 MG/ML INJ 0.25 MG IV (13:43)
--- NOTE | 2019-06-11 08:04 | PM.GYNOP.1 ---
Operative Date/Time/Diagnoses Date of procedure: 05/28/19 Time of procedure: 11:15 Pre-op diagnosis: Persistent left ovarian cyst History of endometriosis Post-op diagnosis: same Procedure & Clinicians Procedure: Procedures Operation Date: 05/28/19 09:45 Actual Procedures Side Surgeon p Laparoscopic Ovarian Cystectomy Left Khushbu Saldivar MD Indications: Persistent left ovarian cyst History of endometriosis Surgeon: Khushbu Saldivar Anesthesia Type: General Operative Notes Findings: No tubes or uterus visible Normal liver Normal right ovary Uterus previously removed Closure Type: primary Specimen(s): other (Left ovarian cyst) Estimated blood loss (mL): 10 Blood products transfused: none Procedure in detail: After informed consent was obtained, the patient was taken to the operating room where she was placed in the dorsal supine position. After adequate general endotracheal anesthesia was achieved, she was placed in the dorsal lithotomy position, and prepped and draped in the usual sterile fashion. A time-out was performed. A moistened sponge stick was placed into the vagina. Attention was then turned to the abdomen where 6 cc of 0.5% Marcaine with epinephrine were injected in the umbilical fold. A 5 mm incision was made. The Veress needle was placed into the peritoneal cavity, and its placement confirmed by aspiration and drop test. The abdominal cavity was insufflated with 4.2 L of CO2. The Veress needle was removed, and a 5 mm trocar was placed without difficulty. Two other incisions were made midway between the pubic symphysis and umbilicus after 6 cc of 0.5% Marcaine with epinephrine were injected. Two 5 mm trocars were placed under direct visualization. The left ovary was grasped with an atraumatic grasper. The the PlasmaKinetic was used to excise the cyst and the ovary was cauterized for hemostasis. The cyst was removed through 1 of the trocars. The liver was examined and was found to be normal. The right ovary was examined and was found be normal. Both tubes and uterus had previously been removed. Hemostasis was achieved. The instruments were removed from the abdomen. The CO2 was allowed to escape. The incisions were repaired with 4-0 Biosyn in a subcuticular fashion. Steri-Strips, 2 x 2, and op site were placed. The moistened sponge stick was removed from the vagina. Sponge, lap, and instrument counts were correct x2. The patient tolerated the procedure well, and was taken to PACU in stable condition. Complications: none Post-operative Condition: stable Disposition: PACU Plan for aftercare: Home after recovery
== END 2019-05-28 15:05 | disposition home or self-care (01) ==
PROVIDERS: Family Provider Nurse Practitioner; Visit Provider Obstetrics & Gynecology
PROC: (CPT 58661; principal; 2019-05-28 09:45)
DX: N83.02 Follicular cyst of left ovary (principal); E66.9 Obesity, unspecified; G43.909 Migraine, unspecified, not intractable, without status migrainosus
CPT/HCPCS: 58662; 94762; J1170; J2060; J2250; J2405; J2704; J2765; J3010; J8501

== ENCOUNTER 2019-05-30 19:44 | Emergency (ER) | payer OTHER, SELFPAY ==
[2018-10-25 01:50] VITALS: BMI 38.0
[2019-05-30 19:46] VITALS: BP 158/101; PULSE 93; RESP 16; TEMP 36.9; O2SAT 98
--- NOTE | 2019-05-30 19:58 | ED.NAVMDI ---
HPI - Nausea/Vomiting/Diarrhea <IBIS Ybarra - Last Filed: 05/30/19 21:56> General Chief complaint: Nausea/Vomiting/Diarrhea Stated complaint: nausea, vomiting Time Seen by Provider: 05/30/19 19:57 Source: patient Mode of arrival: Ambulatory History of Present Illness HPI Narrative: 29-year-old female who is status post 2 days laparoscopic lysis of adhesions an aspiration of left ovarian cyst on 05/28/2019, presents emergency department for continued vomiting. She states states she was discharged from the hospital with some occasional bouts of vomiting, was given Zofran which has helped. She vomited once yesterday but today after 3:00 p.m. she started vomiting about 6 times. She denies any increased pain, fevers, chills, diarrhea, headaches, chest pain, shortness of breath, or other concerns. States she vomits often with ovarian cyst pain. Patient states Phenergan usually helps resolve her symptoms. Related Data Previous Rx's Medication Instructions Recorded ondansetron 4 mg PO Q6-8H PRN #30 tab 10/27/18 oxycodone-acetaminophen [Percocet] 1 tab PO Q4-6H PRN #30 tab 05/28/19 promethazine 25 mg SC Q4-6H PRN #12 each 05/30/19 Allergies Allergy/AdvReac Type Severity Reaction Status Date / Time azithromycin [AZITHROMYCIN] Allergy Severe rash/throat Verified 05/28/19 08:53 swelling topiramate [TOPIRAMATE] Allergy Intermediate Rash Verified 05/28/19 08:53 codeine [CODEINE] AdvReac Severe Heartburn Verified 05/28/19 08:53 tramadol [TRAMADOL] AdvReac Intermediate Vomiting Verified 05/28/19 08:53 Review of Systems <IBIS Ybarra - Last Filed: 05/30/19 21:56> Review of Systems Narrative: REVIEW OF SYSTEMS: GENERAL: Denies fever, chills, malaise, or wt. loss. HENT: No head trauma, sore throat, or dysphagia. EYES: No loss of vision, double vision, eye pain, or irritation. CARDIOVASCULAR: No chest pain, palpitations, or orthopnea. RESPIRATORY: No shortness of breath or cough. GASTROINTESTINAL: Reports vomiting, see HPI. GENITOURINARY: No flank pain, urinary incontinence, hesitancy, frequency, or dysuria. [No vaginal discharge or dyspareunia. Denies concerns for STIs] MUSCULOSKELETAL: No pain, weakness, or trauma. INTEGUMENTARY: No rash, lesions, or pruritus. NEURO: No numbness, tingling, memory loss, confusion, or headaches. PSYCH: No behavior or mood changes. Patient History <IBIS Ybarra - Last Filed: 05/30/19 21:56> Medical History Abnormal Pap smear of cervix (Resolved 2013) Acne (Chronic 2006) Ankle pain (Chronic 2014) Chronic headaches (Chronic 2007) Eczema (Chronic 1999) Endometriosis (Chronic 2007) Gastric ulcer (Resolved 2015) Herpes (Chronic 2014) History of heavy periods (Chronic 2005) HPV (human papilloma virus) infection (Resolved 2013) Migraines (Chronic 2007) Ovarian cyst (Resolved 2007) Painful menstrual periods (Chronic 2003) Surgical History History of laparoscopy (Acute 10/27/18) History of orthopedic surgery (Resolved 07/16/15) History of tonsillectomy (Resolved 06/2010) S/P laparoscopy (Resolved 10/26/18) Status post appendectomy (Resolved 01/2008) Status post laparoscopy (Resolved 2007) Status post laparoscopy (Resolved 2009) Status post laparoscopy (Resolved 07/19/14) Status post ovarian cystectomy (Resolved 2007) Family History Grandfather Age: 82 Colon cancer Grandmother Age: 81 Scoliosis Grandfather Lung cancer Mother Oral cancer Social History household members: spouse Smoking Status: Never smoker alcohol intake: current alcohol intake frequency: 0-2 drinks per day Substance Use Type: does not use Exam <IBIS Ybarra - Last Filed: 05/30/19 21:56> Initial Vital Signs Initial Vital Signs: Vital Signs Temperature 98.5 F 05/30/19 19:46 Pulse Rate 93 H 05/30/19 19:46 Respiratory Rate 16 05/30/19 19:46 Blood Pressure 158/101 H 05/30/19 19:46 Pulse Oximetry 98 05/30/19 19:46 PHYSICAL EXAMINATION: GENERAL: Well groomed, alert, and cooperative. Answers questions promptly and appropriately. Vital signs noted. HENT: Normocephalic, atraumatic. Hearing intact. Oral mucosa is pink and moist. EYES: Conjunctiva pink, sclera white, no periorbital swelling. CARDIOVASCULAR: S1 and S2 sounds normal. Regular rate and rhythm, no murmurs, clicks, or bruits. No pedal edema. RESPIRATORY: Normal respiratory rate, trachea midline, airway patent. No stridor, nasal flaring or accessory muscle use. Lungs are clear in all dunn without wheeze, rhonchi, or crackles. GASTROINTESTINAL: Bowel sounds normoactive. Abdomen is soft and slight tenderness over surgical areas. No organomegaly, no palpable masses. Surgical wounds intact, ecchymosis under umbilicus, no erythema or exudate. Patient vomited once during the emergency department stay after p.o. trial. GENITALURINARY: No flank tenderness. MUSCULOSKELETAL: Normal gait and coordination. Equal tone and mass bilaterally. EXTREMITIES: CMS intact, no pedal edema. SKIN: Warm, dry, soft, appropriate color for ethnicity. No lesions, rashes, or wounds. NEURO: Alert and Oriented X 3. Good coordination. No ataxia, or sensory deficits, or cognitive issues. PSYCH: Appropriate affect and mood. <Som Pond MD - Last Filed: 05/31/19 00:18> Initial Vital Signs Initial Vital Signs: Vital Signs Temperature 98.5 F 05/30/19 19:46 Pulse Rate 93 H 05/30/19 19:46 Respiratory Rate 16 05/30/19 19:46 Blood Pressure 158/101 H 05/30/19 19:46 Pulse Oximetry 98 05/30/19 19:46 Course <IBIS Ybarra - Last Filed: 05/30/19 21:56> Course Course Narrative: Patient was given 1 L of IV normal saline, 25 mg of Benadryl, and 10 mg of Reglan, she reported decreased nausea. Patient was given water for p.o. trial and vomited. Ativan was given. Patient was signed out to Dr. Pond for continued care. Orders Ordered: ED Orders 05/30/19 20:08 Complete Blood Count AUTO DIFF Stat Comprehensive Metabolic Panel Stat Discontinued Medications Diphenhydramine HCl (Benadryl) 25 mg IV NOW ONE Stop: 05/30/19 20:26 Last Admin: 05/30/19 20:52 Dose: 25 mg Documented by: PRABHA Sodium Chloride (Normal Saline 0.9%) 1,000 mls @ 1,000 mls/hr IV BOLUS ONE Stop: 05/30/19 20:56 Last Infusion: 05/30/19 21:18 Dose: 0 mls/hr Documented by: Admin: 05/30/19 20:12 Dose: 1,000 mls/hr Documented by: ROEL Ketorolac Tromethamine (Toradol) 30 mg IV NOW ONE Stop: 05/30/19 20:26 Last Admin: 05/30/19 20:53 Dose: 30 mg Documented by: PRABHA Lorazepam (Ativan) 0.5 mg IV NOW ONE Stop: 05/30/19 21:39 Last Admin: 05/30/19 22:27 Dose: 0.5 mg Documented by: ANIBAL Metoclopramide HCl (Reglan) 10 mg IV NOW ONE Stop: 05/30/19 20:26 Last Admin: 05/30/19 20:53 Dose: 10 mg Documented by: PRABHA Ondansetron HCl (Zofran) 4 mg IV NOW ONE Stop: 05/30/19 19:58 Last Admin: 05/30/19 20:12 Dose: 4 mg Documented by: ROEL Promethazine HCl (Phenadoz) 25 mg SC NOW ONE Stop: 05/30/19 21:42 Last Admin: 05/30/19 22:35 Dose: 25 mg Documented by: ANIBAL Consultations Consultation #1: Patient staffed with Dr. Pond. Vital Signs Vital signs: Vital Signs - 8 hr 05/30/19 19:46 05/30/19 22:31 Temperature 98.5 F Pulse Rate 93 H 90 Respiratory Rate 16 18 Blood Pressure 158/101 H Blood Pressure [Right Arm] 105/60 Pulse Oximetry 98 97 <Som Pond MD - Last Filed: 05/31/19 00:18> Orders Ordered: ED Orders 05/30/19 20:08 Complete Blood Count AUTO DIFF Stat Comprehensive Metabolic Panel Stat Discontinued Medications Diphenhydramine HCl (Benadryl) 25 mg IV NOW ONE Stop: 05/30/19 20:26 Last Admin: 05/30/19 20:52 Dose: 25 mg Documented by: PRABHA Sodium Chloride (Normal Saline 0.9%) 1,000 mls @ 1,000 mls/hr IV BOLUS ONE Stop: 05/30/19 20:56 Last Infusion: 05/30/19 21:18 Dose: 0 mls/hr Documented by: Admin: 05/30/19 20:12 Dose: 1,000 mls/hr Documented by: ROEL Ketorolac Tromethamine (Toradol) 30 mg IV NOW ONE Stop: 05/30/19 20:26 Last Admin: 05/30/19 20:53 Dose: 30 mg Documented by: PRABHA Lorazepam (Ativan) 0.5 mg IV NOW ONE Stop: 05/30/19 21:39 Last Admin: 05/30/19 22:27 Dose: 0.5 mg Documented by: ANIBAL Metoclopramide HCl (Reglan) 10 mg IV NOW ONE Stop: 05/30/19 20:26 Last Admin: 05/30/19 20:53 Dose: 10 mg Documented by: PRABHA Ondansetron HCl (Zofran) 4 mg IV NOW ONE Stop: 05/30/19 19:58 Last Admin: 05/30/19 20:12 Dose: 4 mg Documented by: ROEL Promethazine HCl (Phenadoz) 25 mg SC NOW ONE Stop: 05/30/19 21:42 Last Admin: 05/30/19 22:35 Dose: 25 mg Documented by: ANIBAL Vital Signs Vital signs: Vital Signs - 8 hr 05/30/19 19:46 05/30/19 22:31 Temperature 98.5 F Pulse Rate 93 H 90 Respiratory Rate 16 18 Blood Pressure 158/101 H Blood Pressure [Right Arm] 105/60 Pulse Oximetry 98 97 MDM - Nausea/Vomiting/Diarrhea <IBIS Ybarra - Last Filed: 05/30/19 21:56> Medical Records Attestation: I reviewed the patient's medical records. Lab Data Attestation: I reviewed the patient's lab results. Result diagrams: 05/30/19 20:08 05/30/19 20:08 Labs: Lab Results 05/30/19 05/30/19 Range/Units 20:08 20:08 WBC 9.2 (4.5-11.0) X10^3/uL RBC 4.57 (4.0-5.2) X10^6/uL Hgb 13.1 (12.0-16.0) g/dL Hct 38.8 (36-46) % MCV 85.1 (80-100) fL MCH 28.8 (26-34) PG MCHC 33.8 (30-36) % RDW 12.2 (11.6-14.8) % Plt Count 425 H (150-400) X10^3/uL Neut % (Auto) 33.9 L (50-75) % Lymph % (Auto) 52.9 H (25-40) % [place] % (Auto) 6.1 (3-14) % Eos % (Auto) 6.1 H (2-4) % Baso % (Auto) 1.0 (0-2) % Neut # (Auto) 3100 (2264-9406) /uL Lymph # (Auto) 4900 H (4995-6941) /uL [place] # (Auto) 600 (0-900) /uL Eos # (Auto) 600 H (0-450) /uL Baso # (Auto) 100 (0-100) /uL Sodium 138 (137-145) mmol/L Potassium 4.0 (3.4-5.1) mmol/L Chloride 104 (98-107) mmol/L Carbon Dioxide 28 (22-32) mmol/L BUN 12 (7-17) mg/dL Creatinine 0.80 (0.52-1.04) mg/dL Estimated GFR > 60.0 (>60) mL/min BUN/Creatinine Ratio 15.0 (6-22) Glucose 98 (70-100) mg/dL Calcium 8.8 (8.4-10.2) mg/dL Total Bilirubin 0.5 (0.2-1.3) mg/dL AST 25 (14-36) IU/L ALT 16 (<35) IU/L Alkaline Phosphatase 72 (38-126) U/L Total Protein 6.8 (6.3-8.2) g/dL Albumin 3.9 (3.5-5.0) g/dL Globulin 2.9 (1.7-4.1) g/dL Albumin/Globulin Ratio 1.3 (1.0-2.8) MDM Narrative Medical decision making narrative: This is a 29-year-old female who is status post 2 days laparoscopic drainage of ovarian cyst, she has a history of vomiting in the past. Patient presents for vomiting that has increased today. She has been taking Zofran at home without relief. Differential medication induced vomiting, pain induce vomiting (most likely due to history, worsening vomiting with pain), viral gastroenteritis, or infectious etiology (less likely due to lack of elevated white blood cell count, increased pain, lack of systemic symptoms such as tachycardia). Patient was given a prescription for Phenergan suppositories. Patient was signed out to Dr. Pond for continued care. Strict return precautions given and follow-up instructions discussed <Som Pond MD - Last Filed: 05/31/19 00:18> Lab Data Labs: Lab Results 05/30/19 05/30/19 Range/Units 20:08 20:08 WBC 9.2 (4.5-11.0) X10^3/uL RBC 4.57 (4.0-5.2) X10^6/uL Hgb 13.1 (12.0-16.0) g/dL Hct 38.8 (36-46) % MCV 85.1 (80-100) fL MCH 28.8 (26-34) PG MCHC 33.8 (30-36) % RDW 12.2 (11.6-14.8) % Plt Count 425 H (150-400) X10^3/uL Neut % (Auto) 33.9 L (50-75) % Lymph % (Auto) 52.9 H (25-40) % [place] % (Auto) 6.1 (3-14) % Eos % (Auto) 6.1 H (2-4) % Baso % (Auto) 1.0 (0-2) % Neut # (Auto) 3100 (8133-4926) /uL Lymph # (Auto) 4900 H (9276-6878) /uL [place] # (Auto) 600 (0-900) /uL Eos # (Auto) 600 H (0-450) /uL Baso # (Auto) 100 (0-100) /uL Sodium 138 (137-145) mmol/L Potassium 4.0 (3.4-5.1) mmol/L Chloride 104 (98-107) mmol/L Carbon Dioxide 28 (22-32) mmol/L BUN 12 (7-17) mg/dL Creatinine 0.80 (0.52-1.04) mg/dL Estimated GFR > 60.0 (>60) mL/min BUN/Creatinine Ratio 15.0 (6-22) Glucose 98 (70-100) mg/dL Calcium 8.8 (8.4-10.2) mg/dL Total Bilirubin 0.5 (0.2-1.3) mg/dL AST 25 (14-36) IU/L ALT 16 (<35) IU/L Alkaline Phosphatase 72 (38-126) U/L Total Protein 6.8 (6.3-8.2) g/dL Albumin 3.9 (3.5-5.0) g/dL Globulin 2.9 (1.7-4.1) g/dL Albumin/Globulin Ratio 1.3 (1.0-2.8) Discharge Plan Departure Patient Disposition: Home Clinical Impression: Vomiting Qualifiers: Vomiting type: unspecified Vomiting Intractability: unspecified Nausea presence: with nausea Qualified Code(s): R11.2 - Nausea with vomiting, unspecified Discharge Date/Time: 05/30/19 22:44 Instructions: DI for Vomiting -- Adult Activity Restrictions/Additional Instructions: Thank you for entrusting me with your care today. As discussed, your laboratory work is unremarkable, there is no concern for infection at this time. I prescribed you Phenergan suppositories to help with your nausea, [facility] in [place]. Please take this as directed, please fever this medication can make you drowsy do not drive while taking this medication. Follow up with Dr. Saldivar as scheduled, return emergency department for new or worsening symptoms such as fevers, uncontrollable vomiting, severe abdominal pain, chest pain, shortness of breath, or etc. Prescriptions: New promethazine 25 mg suppository 25 mg SC Q4-6H PRN (Reason: nausea and vomiting) Qty: 12 RF: 0 No Action ondansetron 4 mg tablet,disintegrating 4 mg PO Q6-8H PRN (Reason: nausea and vomiting) Qty: 30 RF: 2 oxycodone-acetaminophen [Percocet] 7.5-325 mg tablet 1 tab PO Q4-6H PRN (Reason: pain) Qty: 30 RF: 0 Referrals: Yarelis Lino ARNP [Primary Care Provider] -
[2019-05-30] MEDS: ONDANSETRON 4 MG/2 ML INJ IV (20:12)
[2019-05-30] MEDS: SODIUM CHLORIDE 0.9% 1,000 ML 1000 ML IV (20:12)
[2019-05-30 20:23] LABS: Add Manual Diff / Slide Review NO; Basophils Absolute Auto 100 /uL (0-100); Eosinophils Absolute Auto 600 /uL (0-450); Eosinophils Percent Auto 6.1 % (2-4); Hematocrit 38.8 % (36-46); Hemoglobin 13.1 g/dL (12.0-16.0); Lymphocytes Absolute Auto 4900 /uL (1100-4500); Lymphocytes Percent Auto 52.9 % (25-40); Mean Corpuscular HGB Conc 33.8 % (30-36); Mean Corpuscular Hemoglobin 28.8 PG (26-34); Mean Corpuscular Volume 85.1 fL (80-100); Monocytes Absolute Auto 600 /uL (0-900); Monocytes Percent Auto 6.1 % (3-14); Neutrophils Absolute Auto 3100 /uL (1500-7000); Neutrophils Percent Auto 33.9 % (50-75); Platelet Count 425 X10^3/uL (150-400); Red Blood Cell Count 4.57 X10^6/uL (4.0-5.2); Red Cell Distribution Width 12.2 % (11.6-14.8); White Blood Cell Count 9.2 X10^3/uL (4.5-11.0)
[2019-05-30 20:35] LABS: Alanine Aminotransferase 16 IU/L (<35); Albumin 3.9 g/dL (3.5-5.0); Albumin Globulin Ratio 1.3 (1.0-2.8); Alkaline Phosphatase 72 U/L (38-126); Aspartate Aminotransferase 25 IU/L (14-36); Bilirubin Total 0.5 mg/dL (0.2-1.3); Blood Urea Nitrogen 12 mg/dL (7-17); Calcium 8.8 mg/dL (8.4-10.2); Carbon Dioxide 28 mmol/L (22-32); Chloride 104 mmol/L (98-107); Estimated Glomerular Filt Rate > 60.0 mL/min (>60); Globulin 2.9 g/dL (1.7-4.1); Glucose 98 mg/dL (70-100); HEMOLYSIS 53 (0-50); Sodium 138 mmol/L (137-145); Total Protein 6.8 g/dL (6.3-8.2)
[2019-05-30] MEDS: diphenhydrAMINE 50 MG/ML VIAL 25 MG IV (20:52)
[2019-05-30] MEDS: METOCLOPRAMIDE 10 MG/2 ML INJ IV (20:53)
[2019-05-30] MEDS: KETOROLAC 60 MG/2 ML VIAL 30 MG IV (20:53)
[2019-05-30] MEDS: LORazepam 2 MG/ML INJ 0.5 MG IV (22:27)
[2019-05-30 22:31] VITALS: BP 105/60; PULSE 90; RESP 18; O2SAT 97
[2019-05-30] MEDS: PROMETHAZINE 25 MG SUPP PR (22:35)
== END 2019-05-30 22:44 | disposition home or self-care (01) ==
PROVIDERS: Emergency Provider Nurse Practitioner; Family Provider Nurse Practitioner; PCP Nurse Practitioner
DX: R11.2 Nausea with vomiting, unspecified (principal)
CPT/HCPCS: 36415; 80053; 85025; 96361; 96374; 96375; 99283; 99284; J1200; J1885; J2060; J2405; J2765

== ENCOUNTER 2019-09-02 08:58 | Emergency (ER) | payer OTHER, SELFPAY ==
[2018-10-25 01:50] VITALS: BMI 38.0
[2019-09-02] VITALS (12 sets, daily range): BP systolic 118–158; BP diastolic 64–93; PULSE 92–114; RESP 14–26; TEMP 37.1; O2SAT 94–100; BMI 37.9
--- NOTE | 2019-09-02 09:53 | DI.RAD.S_ITS ---
PROCEDURE: XR CHEST 1V INDICATIONS: chest pain TECHNIQUE: One view of the chest was acquired. COMPARISON: None. FINDINGS: Surgical changes and devices: None. Lungs and pleura: Lungs are clear. No pleural effusions or pneumothorax. Mediastinum: Mediastinal contours appear normal. Heart size is normal. Bones and chest wall: No suspicious bony lesions. Overlying soft tissues appear unremarkable. IMPRESSION: Portable chest within normal limits. Dictated by: Wood Mccullough M.D. on 09/02/2019 at 9:26 Approved by: Wood Mccullough M.D. on 09/02/2019 at 9:27
[2019-09-02 10:19] LABS: Add Manual Diff / Slide Review NO; Basophils Absolute Auto 0 /uL (0-100); Basophils Percent Auto 0.3 % (0-2); Eosinophils Absolute Auto 100 /uL (0-450); Eosinophils Percent Auto 0.8 % (2-4); Hematocrit 40.8 % (36-46); Hemoglobin 13.9 g/dL (12.0-16.0); Lymphocytes Absolute Auto 1700 /uL (1100-4500); Lymphocytes Percent Auto 20.9 % (25-40); Mean Corpuscular HGB Conc 33.9 % (30-36); Mean Corpuscular Hemoglobin 29.4 PG (26-34); Mean Corpuscular Volume 86.6 fL (80-100); Monocytes Absolute Auto 400 /uL (0-900); Monocytes Percent Auto 4.9 % (3-14); Neutrophils Absolute Auto 6000 /uL (1500-7000); Neutrophils Percent Auto 73.1 % (50-75); Platelet Count 391 X10^3/uL (150-400); Red Blood Cell Count 4.72 X10^6/uL (4.0-5.2); Red Cell Distribution Width 12.7 % (11.6-14.8); White Blood Cell Count 8.2 X10^3/uL (4.5-11.0)
[2019-09-02 10:30] LABS: Alanine Aminotransferase 22 IU/L (<35); Albumin 4.5 g/dL (3.5-5.0); Albumin Globulin Ratio 1.4 (1.0-2.8); Alkaline Phosphatase 97 U/L (38-126); Aspartate Aminotransferase 21 IU/L (14-36); BUN Creatinine Ratio 16.3 (6-22); Bilirubin Total 0.6 mg/dL (0.2-1.3); Blood Urea Nitrogen 13 mg/dL (7-17); Calcium 9.6 mg/dL (8.4-10.2); Carbon Dioxide 25 mmol/L (22-32); Chloride 109 mmol/L (98-107); Creatine Kinase 57 U/L (30-135); Estimated Glomerular Filt Rate > 60.0 mL/min (>60); Globulin 3.3 g/dL (1.7-4.1); Glucose 93 mg/dL (70-100); HEMOLYSIS < 15 (0-50); Lipase 137 U/L (23-300); Potassium 4.1 mmol/L (3.4-5.1); Sodium 140 mmol/L (137-145); Total Protein 7.8 g/dL (6.3-8.2)
--- NOTE | 2019-09-02 10:39 | ED.DIZZY ---
HPI - Dizziness General Chief Complaint: Dizziness Stated Complaint: abdominal pain Source: patient and family Mode of arrival: Family Vehicle Limitations: no limitations History of Present Illness HPI Narrative: CC: ?I feel like crap?. HPI: The patient is a 29-year-old female who presents to the emergency department complaining of being dizzy with vertigo and spinning dizziness. She states that she woke up this morning feeling dizzy developed intense nausea. The room was spinning. She felt lightheaded. She was vomiting sitting on the toilet and she passed out and fell forward and struck her head. She complains that she has been having lower abdominal pain in the suprapubic region since last night. She does not have menstrual periods because she had a hysterectomy for endometriosis. However they did not remove her ovaries. Her abdominal pain feels similar to when she had ovarian cysts and cysts in her abdomen. She denies any fever chills but has had cold sweats especially at night time. She has had a mild headache home since she fell and struck her head. She denies any change in vision loss of vision or diplopia. She denies that she has had a history of migraines. She denies any significant chest pain shortness of breath or cough as well as any palpitations. She has had persistent nausea and vomiting without diarrhea melena or hematochezia. She denies any urinary symptoms. 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 She denies that she smokes cigarettes but does drink alcohol periodically and denies the use of any drugs. She denies a past history of Crohn's disease ulcerative colitis irritable bowel syndrome hepatitis, TB or HIV. Related Data Previous Rx's Medication Instructions Recorded ondansetron 4 mg PO Q6-8H PRN #30 tab 10/27/18 promethazine 25 mg FL Q4-6H PRN #12 each 05/30/19 metoclopramide HCl 10 mg tablet 10 mg PO Q6H PRN #20 tab 06/01/19 dicyclomine 20 mg PO TID #15 tab 09/02/19 hydrocodone-acetaminophen [[place]] 1 tab PO Q4H PRN #12 tab 09/02/19 ibuprofen 600 mg PO Q6H PRN #20 tab 09/02/19 meclizine 25 mg PO TID PRN #15 tab 09/02/19 ondansetron HCl [Zofran] 4 mg PO Q6H PRN #10 tab 09/02/19 Allergies Allergy/AdvReac Type Severity Reaction Status Date / Time azithromycin [AZITHROMYCIN] Allergy Severe rash/throat Verified 09/02/19 09:14 swelling topiramate [TOPIRAMATE] Allergy Intermediate Rash Verified 09/02/19 09:14 codeine [CODEINE] AdvReac Severe Heartburn Verified 09/02/19 09:14 tramadol [TRAMADOL] AdvReac Intermediate Vomiting Verified 09/02/19 09:14 Review of Systems Review of Systems Narrative: All review of systems were negative except for those mentioned in the history of present illness. Patient History Medical History Abnormal Pap smear of cervix (Resolved 2013) Acne (Chronic 2006) Ankle pain (Chronic 2014) Chronic headaches (Chronic 2007) Eczema (Chronic 1999) Endometriosis (Chronic 2007) Gastric ulcer (Resolved 2015) Herpes (Chronic 2014) History of heavy periods (Chronic 2005) HPV (human papilloma virus) infection (Resolved 2013) Migraines (Chronic 2007) Ovarian cyst (Resolved 2007) Painful menstrual periods (Chronic 2003) Surgical History History of laparoscopy (Acute 10/27/18) History of orthopedic surgery (Resolved 07/16/15) History of tonsillectomy (Resolved 06/2010) S/P laparoscopic procedure (Acute ~05/28/19) S/P laparoscopy (Resolved 10/26/18) Status post appendectomy (Resolved 01/2008) Status post laparoscopy (Resolved 2007) Status post laparoscopy (Resolved 2009) Status post laparoscopy (Resolved 07/19/14) Status post ovarian cystectomy (Resolved 2007) Family History Grandfather Age: 82 Colon cancer Grandmother Age: 81 Scoliosis Grandfather Lung cancer Mother Oral cancer Social History household members: spouse Smoking Status: Never smoker alcohol intake: current Smoking Status: Never smoker alcohol intake frequency: holidays/special occasions only Substance Use Type: does not use Exam Narrative Exam Narrative: PHYSICAL EXAM: CONSTITUTIONAL: Awake, Alert, Oriented, appears sleepy and at times uncooperative. HEAD: AT/NC the patient has a shallow abrasion laceration over her left forehead. EENT: PERRL, FROM of eyes, no discharge,. And lateral horizontal gaze the patient has marked nystagmus. No drainage from the ears, Tympanic membranes intact bilaterally, clear EAC No epistaxis or nasal drainage Oral mucosa is moist and pink, posterior pharynx is without erythema or exudate. NECK: Supple, no obvious JVD, Trachea is midline without stridor, no palpable LN or masses. Refer patient has full range of motion of her neck to flexion extension right left lateral flexion. SPINE: No gross deformity, no palpable tenderness of the cervical, thoracic, lumbar or sacral spine. No CVA tenderness. THORAX: No deformity, retractions, chest wall tenderness, subcutaneous air or crepitice. LUNGS: Clear with symmetrical breath sounds without respiratory distress HEART: Normal heart tones, regular rhythm and rate without murmur. ABDOMEN: Soft, non-tender, normal bowel sounds without guarding, rebound, rigidity or palpable mass EXTREMITIES: No edema, cyanosis, deformity or tenderness. SKIN: No rash, bruising, petechiae or purpura. NEURO: Awake, alert, oriented, conversive, there is no focal facial asymmetry/ cranial nerves II-XII are symmetrical ., moves all 4 extremities and is ambulatory Initial Vital Signs Initial Vital Signs: Vital Signs Temperature 98.7 F 09/02/19 09:08 Pulse Rate 108 H 09/02/19 09:08 Respiratory Rate 18 09/02/19 09:08 Blood Pressure 152/93 H 09/02/19 09:08 Pulse Oximetry 98 09/02/19 09:08 Course Orders Ordered: ED Orders 09/02/19 13:53 Arterial Blood Gas Stat 09/02/19 14:02 US abdomen limited Stat 09/02/19 15:10 VBG [Venous Blood Gas] Stat Discontinued Medications Hydromorphone HCl (Dilaudid) 0.5 mg IV NOW ONE Stop: 09/02/19 15:09 Last Admin: 09/02/19 15:14 Dose: 0.5 mg Documented by: HANNAH Hydromorphone HCl (Dilaudid) 0.5 mg IV NOW ONE Stop: 09/02/19 16:07 Last Admin: 09/02/19 16:15 Dose: 0.5 mg Documented by: MARLENY Sodium Chloride (Normal Saline 0.9%) 1,000 mls @ 1,000 mls/hr IV BOLUS ONE Stop: 09/02/19 11:45 Last Infusion: 09/02/19 12:15 Dose: 0 mls/hr Documented by: Admin: 09/02/19 11:08 Dose: 1,000 mls/hr Documented by: HANNAH Ketorolac Tromethamine (Toradol) 30 mg IV NOW ONE Stop: 09/02/19 10:42 Last Admin: 09/02/19 11:09 Dose: 30 mg Documented by: HANNAH Ketorolac Tromethamine (Toradol) 30 mg IV NOW ONE Stop: 09/02/19 16:06 Last Admin: 09/02/19 16:15 Dose: 30 mg Documented by: MARLENY Meclizine HCl (Antivert) 25 mg PO NOW ONE Stop: 09/02/19 10:42 Last Admin: 09/02/19 11:09 Dose: 25 mg Documented by: HANNAH Morphine Sulfate (Morphine) 4 mg IV NOW ONE Stop: 09/02/19 12:37 Last Admin: 09/02/19 12:46 Dose: 4 mg Documented by: HANNAH Morphine Sulfate (Morphine) 4 mg IV NOW ONE Stop: 09/02/19 14:00 Last Admin: 09/02/19 14:18 Dose: 4 mg Documented by: HANNAH Ondansetron HCl (Zofran) 4 mg IV NOW ONE Stop: 09/02/19 10:42 Last Admin: 09/02/19 11:09 Dose: 4 mg Documented by: HANNAH Vital Signs Vital signs: Vital Signs - 8 hr 09/02/19 13:36 09/02/19 14:00 09/02/19 15:00 Pulse Rate 104 H 104 H 112 H Respiratory Rate 16 14 18 Blood Pressure [Right Arm] 142/84 H 128/73 119/69 Pulse Oximetry 96 94 97 09/02/19 15:30 Pulse Rate 114 H Respiratory Rate 14 Blood Pressure [Right Arm] 129/73 Pulse Oximetry 96 MDM - Dizziness Medical Records Attestation: I reviewed the patient's medical records. Lab Data Attestation: I reviewed the patient's lab results. Result diagrams: 09/02/19 10:12 02/16/20 10:12 Labs: Lab Results 09/02/19 09/02/19 09/02/19 Range/Units 10:12 10:12 11:11 WBC 8.2 (4.5-11.0) X10^3/uL RBC 4.72 (4.0-5.2) X10^6/uL Hgb 13.9 (12.0-16.0) g/dL Hct 40.8 (36-46) % MCV 86.6 (80-100) fL MCH 29.4 (26-34) PG MCHC 33.9 (30-36) % RDW 12.7 (11.6-14.8) % Plt Count 391 (150-400) X10^3/uL Neut % (Auto) 73.1 (50-75) % Lymph % (Auto) 20.9 L (25-40) % [place] % (Auto) 4.9 (3-14) % Eos % (Auto) 0.8 L (2-4) % Baso % (Auto) 0.3 (0-2) % Neut # (Auto) 6000 (9906-7616) /uL Lymph # (Auto) 1700 (7422-6437) /uL [place] # (Auto) 400 (0-900) /uL Eos # (Auto) 100 (0-450) /uL Baso # (Auto) 0 (0-100) /uL VBG pH (7.33-7.43) VBG pCO2 (45-50) mmHg VBG pO2 (35-45) mmHg VBG HCO3 (23-28) mmol/L VBG Total CO2 (24-29) mmol/L VBG O2 Saturation (70-75) % VBG Base Excess (0-4) mmol/L Sodium 140 (137-145) mmol/L Potassium 4.1 (3.4-5.1) mmol/L Chloride 109 H (98-107) mmol/L Carbon Dioxide 25 (22-32) mmol/L BUN 13 (7-17) mg/dL Creatinine 0.80 (0.52-1.04) mg/dL Estimated GFR > 60.0 (>60) mL/min BUN/Creatinine Ratio 16.3 (6-22) Glucose 93 (70-100) mg/dL Calcium 9.6 (8.4-10.2) mg/dL Total Bilirubin 0.6 (0.2-1.3) mg/dL AST 21 (14-36) IU/L ALT 22 (<35) IU/L Alkaline Phosphatase 97 (38-126) U/L Total Creatine Kinase 57 (30-135) U/L CK-MB (CK-2) TNP CK-MB (CK-2) Rel Index TNP Troponin I < 0.012 (0.01-0.034) ng/mL Total Protein 7.8 (6.3-8.2) g/dL Albumin 4.5 (3.5-5.0) g/dL Globulin 3.3 (1.7-4.1) g/dL Albumin/Globulin Ratio 1.4 (1.0-2.8) Lipase 137 (23-300) U/L Urine RBC None seen (0-5/HPF) Urine WBC 0-1/hpf (0-5/HPF) Ur Squamous Epith Cells 1-5 /hpf (0-5/HPF) Urine Bacteria Moderate (10-30) H (None) Ur Culture Indicated? Cult not indicated U Opiates 300ng/mL cut (Negative) Ur Oxycodone Screen (Negative) Urine Methadone Screen (Negative) Ur Barbiturates Screen (Negative) U Tricyclic Antidepress (Negative) Ur Phencyclidine Scrn (Negative) Ur Amphetamines Screen (Negative) U Methamphetamines Scrn (Negative) Ur MDMA Scrn (Ecstasy) (Negative) U Benzodiazepines Scrn (Negative) Urine Cocaine Screen (Negative) U Marijuana (THC) Screen (Negative) 09/02/19 09/02/19 Range/Units 11:11 15:10 WBC (4.5-11.0) X10^3/uL RBC (4.0-5.2) X10^6/uL Hgb (12.0-16.0) g/dL Hct (36-46) % MCV (80-100) fL MCH (26-34) PG MCHC (30-36) % RDW (11.6-14.8) % Plt Count (150-400) X10^3/uL Neut % (Auto) (50-75) % Lymph % (Auto) (25-40) % [place] % (Auto) (3-14) % Eos % (Auto) (2-4) % Baso % (Auto) (0-2) % Neut # (Auto) (9924-4142) /uL Lymph # (Auto) (3169-7814) /uL [place] # (Auto) (0-900) /uL Eos # (Auto) (0-450) /uL Baso # (Auto) (0-100) /uL VBG pH 7.38 (7.33-7.43) VBG pCO2 39.7 L (45-50) mmHg VBG pO2 43 (35-45) mmHg VBG HCO3 23 (23-28) mmol/L VBG Total CO2 25 (24-29) mmol/L VBG O2 Saturation 78 H (70-75) % VBG Base Excess -2.0 L (0-4) mmol/L Sodium (137-145) mmol/L Potassium (3.4-5.1) mmol/L Chloride (98-107) mmol/L Carbon Dioxide (22-32) mmol/L BUN (7-17) mg/dL Creatinine (0.52-1.04) mg/dL Estimated GFR (>60) mL/min BUN/Creatinine Ratio (6-22) Glucose (70-100) mg/dL Calcium (8.4-10.2) mg/dL Total Bilirubin (0.2-1.3) mg/dL AST (14-36) IU/L ALT (<35) IU/L Alkaline Phosphatase (38-126) U/L Total Creatine Kinase (30-135) U/L CK-MB (CK-2) CK-MB (CK-2) Rel Index Troponin I (0.01-0.034) ng/mL Total Protein (6.3-8.2) g/dL Albumin (3.5-5.0) g/dL Globulin (1.7-4.1) g/dL Albumin/Globulin Ratio (1.0-2.8) Lipase (23-300) U/L Urine RBC (0-5/HPF) Urine WBC (0-5/HPF) Ur Squamous Epith Cells (0-5/HPF) Urine Bacteria (None) Ur Culture Indicated? U Opiates 300ng/mL cut Negative (Negative) Ur Oxycodone Screen Negative (Negative) Urine Methadone Screen Negative (Negative) Ur Barbiturates Screen Negative (Negative) U Tricyclic Antidepress Negative (Negative) Ur Phencyclidine Scrn Negative (Negative) Ur Amphetamines Screen Negative (Negative) U Methamphetamines Scrn Negative (Negative) Ur MDMA Scrn (Ecstasy) Negative (Negative) U Benzodiazepines Scrn Negative (Negative) Urine Cocaine Screen Negative (Negative) U Marijuana (THC) Screen Negative (Negative) Point of Care Testing Test Results Negative Urine Dip Bedside Urine Glucose Negative Bedside Urine Bilirubin - Negative Bedside Urine Ketone +/- 5 Urine Specific [place] 1.015 Bedside Urine Occult Blood - Negative Bedside Urine pH 6.0 Bedside Urine Protein +/- 15 Bedside Urine Urobilinogen +/- 1mg Bedside Urine Nitrite - Negative Bedside Urine Leukocytes - Negative Esterase ABG Data Attestation: I personally reviewed and interpreted this ABG as follows: Interpretation: The patient's ABGs reveal a pH is 7.379 a pCO2 of 39.7 a PO2 of 43 and an O2 saturation of 78%. These actually do not look like arterial blood gases but look like venous blood gases. ECG Data Attestation: I personally reviewed and interpreted this ECG as follows: Interpretation: The patient's EKG obtained on September 02 at 09:3 5:55 a.m. reveals a sinus rhythm with a ventricular rate of 96. After examining the patient in her room the monitor reveals that she has a sinus tachycardia. Her QRS is slightly prolonged at 101 milliseconds. Intervals otherwise are normal. QTC is 423 milliseconds. [place] is normal. The patient has a small Q-wave in III. T-wave are inverted in leads III and V1. Otherwise the EKG is normal without any acute diagnostic ST segment changes. Discharge Plan Departure Patient Disposition: Home Clinical Impression: Endometriosis, Vertigo, Syncope, vasovagal Abdominal pain Qualifiers: Abdominal location: lower abdomen, unspecified Qualified Code(s): R10.30 - Lower abdominal pain, unspecified Nausea & vomiting Qualifiers: Vomiting type: unspecified Vomiting Intractability: non-intractable Qualified Code(s): R11.2 - Nausea with vomiting, unspecified Head injury Qualifiers: Encounter type: initial encounter Qualified Code(s): S09.90XA - Unspecified injury of head, initial encounter Acute post-traumatic headache Qualifiers: Intractability: not intractable Qualified Code(s): G44.319 - Acute post-traumatic headache, not intractable Discharge Date/Time: 09/02/19 16:46 Instructions: DI for Concussion, DI for Syncope in Adults (Fainting), Fainting, DI for Endometriosis, DI for Vertigo, DI for Abdominal Pain-Adult, DI for Closed Head Injury Activity Restrictions/Additional Instructions: 1. When you go home lay down and rest. 2. Follow-up with your family doctor to be rechecked in 24-48 hours. 3. 48 hour work excuse 4. Take Antivert 25 mg 3 times a day as needed for dizziness and vertigo 5. Zofran 4 mg Q 6 hours as needed for nausea and vomiting 6. Ibuprofen 100 mg for pain and discomfort 7. Bentyl 20 mg 4 times a day for abdominal pain and abdominal cramps 8. [place] 5/325, 1 tablet every 6 hours as needed for pain and discomfort Prescriptions: New meclizine 25 mg tablet 25 mg PO TID PRN (Reason: dizziness) Qty: 15 RF: 0 ibuprofen 600 mg tablet 600 mg PO Q6H PRN (Reason: pain) Qty: 20 RF: 0 ondansetron HCl [Zofran] 4 mg tablet 4 mg PO Q6H PRN (Reason: nausea and vomiting) Qty: 10 RF: 0 hydrocodone-acetaminophen [[place]] 5-325 mg tablet 1 tab PO Q4H PRN (Reason: pain) Qty: 12 RF: 0 dicyclomine 20 mg tablet 20 mg PO TID Qty: 15 RF: 0 No Action metoclopramide HCl [Reglan] 10 mg tablet 10 mg PO Q6H PRN (Reason: nausea and vomiting) Qty: 20 RF: 0 ondansetron 4 mg tablet,disintegrating 4 mg PO Q6-8H PRN (Reason: nausea and vomiting) Qty: 30 RF: 2 promethazine 25 mg suppository 25 mg FL Q4-6H PRN (Reason: nausea and vomiting) Qty: 12 RF: 0 Referrals: Yarelis Lino ARNP [Primary Care Provider] -
[2019-09-02 10:41] LABS: Troponin I < 0.012 ng/mL (0.01-0.034)
--- NOTE | 2019-09-02 10:41 | DI.CT.S_ITS ---
PROCEDURE: CT HEAD/BRAIN WO CON INDICATIONS: syncope fall, head injury, post traumatic headache, vertigo TECHNIQUE: Noncontrast 4.5 mm thick angled axial sections acquired from the foramen magnum to the vertex, with coronal and sagittal reformats. For radiation dose reduction, the following was used: automated exposure control, adjustment of mA and/or kV according to patient size. COMPARISON: None. FINDINGS: Image quality: Excellent. CSF spaces: Basal cisterns are patent. No extra-axial fluid collections. Ventricles are normal in size and shape. Brain: No midline shift. No intracranial masses or hemorrhage. Pérez-white matter interface is normal. Skull and face: Calvarium and visualized facial bones are intact, without suspicious lesions. Sinuses: Visualized sinuses and mastoids are clear. IMPRESSION: No acute intracranial hemorrhage is seen. No acute intracranial process is seen. No displaced calvarial fracture can be seen. Dictated by: Wood Mccullough M.D. on 09/02/2019 at 10:35 Approved by: Wood Mccullough M.D. on 09/02/2019 at 10:36
--- NOTE | 2019-09-02 10:41 | DI.CT.S_ITS ---
PROCEDURE: CT ABDOMEN PELVIS W CON INDICATIONS: severe abdominal pain, suprapubic and ruq, s/p Hysterectomy TECHNIQUE: After the administration of intravenous contrast, 5 mm thick sections acquired from the diaphragm to the symphysis. 5 mm coronal and sagittal reformats were acquired. For radiation dose reduction, the following was used: automated exposure control, adjustment of mA and/or kV according to patient size. COMPARISON: Located Within [facility], CT, ABDOMEN/PELVIS WITH CONTRAST, 04/21/2014, 14:13. Located Within [facility], CT, CT HEAD/BRAIN WO CON, 09/02/2019, 11:14. Located Within [facility], CT, ABDOMEN/PELVIS WITH CONTRAST, 01/12/2014, 18:07. Located Within [facility], CT, KIDNEY/ URETER/BLADDER, 04/19/2014, 14:02. Located Within [facility], CT, CT ABDOMEN PELVIS WO CON, 10/24/2018, 20:45. FINDINGS: Image quality: Excellent. ABDOMEN: Lung bases: Lung bases are clear. Heart size is normal. Solid organs: Liver is normal in size and enhancement. There is a subcentimeter low-density lesion seen within the right liver dome, as on series 2 image 8, likely related to a cyst or hemangioma. Gallbladder wall does not appear thickened. Biliary system is non dilated. Pancreas enhances normally. The spleen is mildly enlarged, measuring 14.6 cm in greatest axial dimension. No adrenal nodules. Kidneys demonstrate normal size and enhancement, without hydronephrosis. Peritoneum and bowel: Bowel loops demonstrate normal wall thickness and caliber. No free fluid or air. Prior appendectomy. There is a mild to moderate amount of stool seen within the colon. Nodes and vessels: No retroperitoneal or mesenteric adenopathy by size criteria. Aorta and inferior vena cava are normal in size. Miscellaneous: No ventral hernias. PELVIS: Genitourinary: Bladder wall thickness is normal. Status post hysterectomy. The right ovary demonstrates cysts, which measure up to 3.1 cm. Miscellaneous: No inguinal hernias or adenopathy. Bones: No suspicious bony lesions. No vertebral body compression fractures. IMPRESSION: No definite, acute abnormality is seen to explain the patient's presenting symptoms. Right ovarian cysts are seen, which measure up to 3.1 cm. As clinically appropriate, a followup pelvic ultrasound could be considered for further evaluation. There is a mild to moderate amount of stool seen within the colon. Please correlate with an underlying history of constipation. Incidental note is made of: Subcentimeter liver cyst or hemangioma Prior appendectomy Hysterectomy Dictated by: Wood Mccullough M.D. on 09/02/2019 at 10:37 Approved by: Wood Mccullough M.D. on 09/02/2019 at 10:41
[2019-09-02] MEDS: SODIUM CHLORIDE 0.9% 1,000 ML 1000 ML IV (11:08)
[2019-09-02] MEDS: KETOROLAC 60 MG/2 ML VIAL 30 MG IV ×2 (11:09→16:15)
[2019-09-02] MEDS: MECLIZINE HCL 12.5 MG TABLET 25 MG PO (11:09)
[2019-09-02] MEDS: ONDANSETRON 4 MG/2 ML INJ IV (11:09)
[2019-09-02 11:12] LABS: RBC Urine None Seen (0-5/HPF)
[2019-09-02 11:28] LABS: UR Morphine/Opiate cutoff 300 Negative (Negative); Ur Creatinine Normal (Normal); Ur Specific Gravity Normal (Normal); Urine Amphetamines Negative (Negative); Urine Barbiturates Negative (Negative); Urine Cocaine Negative (Negative); Urine MDMA Negative (Negative); Urine Methamphetamines Negative (Negative); Urine Phencyclidine Negative (Negative); Urine Tetrahydrocannabinol Negative (Negative); Urine pH Normal (Normal)
[2019-09-02 11:29] LABS: Urine Benzodiazepines Negative (Negative); Urine Methadone Negative (Negative); Urine Oxycodone Negative (Negative); Urine Tricyclic Antidepressant Negative (Negative)
[2019-09-02 11:37] LABS: WBC Urine 0-1/HPF (0-5/HPF)
[2019-09-02 11:38] LABS: Bacteria Urine Moderate (10-30); Culture Indicated Urine Cult Not Indicated; Squamous Epithelial Cell Urine 1-5 /HPF (0-5/HPF)
[2019-09-02] MEDS: MORPHINE 4 MG/ML INJ IV ×2 (12:46→14:18)
--- NOTE | 2019-09-02 13:22 | PC.NURSE ---
Pt states she does not remember syncopal event, does not recall any symptoms preceding the event.
--- NOTE | 2019-09-02 13:52 | PC.NURSE ---
provider notified of apparent runs of vtach and handed printouts from the monitor. No orders received.
--- NOTE | 2019-09-02 14:02 | DI.US.S_ITS ---
PROCEDURE: US ABDOMEN LIMITED INDICATIONS: RIGHT UPPER QUADRANT PAIN TECHNIQUE: Real-time focused scanning was performed of the abdomen, with image documentation. COMPARISON: None. FINDINGS: Liver is normal in size and homogeneous in echotexture. Gallbladder is sonographically normal. No gallstones. No gallbladder wall thickening. Gallbladder wall measures 1.0 mm. No pericholecystic fluid. No sonographic Martel sign. Biliary tree is nondilated common bile duct measures 4.9 mm. Pancreas is sonographically normal. IMPRESSION: No sonographic evidence of cholelithiasis or cholecystitis. There is continued clinical concern for cholecystitis, a nuclear medicine HIDA scan should be considered for further evaluation Dictated by: Abigail Stinson MD, PhD on 09/02/2019 at 15:22 Approved by: Abigail Stinson MD, PhD on 09/02/2019 at 15:23
[2019-09-02] MEDS: HYDROMORPHONE 0.5 MG INJ IV ×2 (15:14→16:15)
[2019-09-02 18:13] LABS: HCO3 VBG 23 mmol/L (23-28); PCO2 VBG 39.7 mmHg (45-50); PO2 VBG 43 mmHg (35-45); Total CO2 VBG 25 mmol/L (24-29); pH VBG 7.38 (7.33-7.43)
[2019-09-02 18:14] LABS: Oxygen Saturation VBG 78 % (70-75)
== END 2019-09-02 16:46 | disposition home or self-care (01) ==
PROVIDERS: Emergency Provider Emergency Medicine; Family Provider Nurse Practitioner; PCP Nurse Practitioner
DX: N80.9 Endometriosis, unspecified (principal); R42 Dizziness and giddiness; R55 Syncope and collapse; R10.30 Lower abdominal pain, unspecified; R11.2 Nausea with vomiting, unspecified; S09.90XA Unspecified injury of head, initial encounter; G44.319 Acute post-traumatic headache, not intractable
CPT/HCPCS: 36415; 70450; 71045; 74177; 76705; 80053; 80305; 81003; 81015; 81025; 82550; 82805; 83690; 84484; 85025; 93005; 96361; 96374; 96375; 96376; 99285; J1170; J1885; J2270; J2405; Q9967

== ENCOUNTER → 2020-09-26 11:06 | Outpatient (CLI) | payer OTHER, SELFPAY ==
[2018-10-25 01:50] VITALS: BMI 38.0
[2020-09-26 12:09] LABS: Cholesterol 208 mg/dL (140-199); Glucose 89 mg/dL (70-100); HDL Cholesterol 48 mg/dL (40-60); LDL Cholesterol Calculated 125 mg/dL (<100); Triglycerides 175 mg/dL (35-150)
[2020-09-26 12:26] LABS: Vitamin D 25 Hydroxy (D3) 15.1 ng/mL (30.0-100.0)
[2020-09-26 12:42] LABS: TSH w/ Reflex to FT4 0.63 uIU/mL (0.47-4.68)
== END ==
PROVIDERS: Family Provider Nurse Practitioner; PCP Registered Nurse Diabetes Educator; Referring Provider Registered Nurse Diabetes Educator; Visit Provider Registered Nurse Diabetes Educator
DX: E66.9 Obesity, unspecified (principal)
CPT/HCPCS: 36415; 80061; 82306; 82947; 84443

== ENCOUNTER → 2020-11-12 12:15 | Outpatient (CLI) | payer OTHER, SELFPAY ==
[2018-10-25 01:50] VITALS: BMI 38.0
--- NOTE | 2020-11-12 12:16 | DI.US.S_ITS ---
PROCEDURE: US PELVIC COMPLETE INDICATIONS: Eval Increasing Pelvic Pain w/Hx Ovarian Cysts. TECHNIQUE: Real-time scanning was performed of the pelvic organs, with image documentation. Additional endovaginal scanning was necessary due to incomplete visualization of the adnexal and endometrial structures by transabdominal scanning. COMPARISON: [facility], , US PELVIC COMPLETE, 03/01/2018, 9:30. [facility], [place], US PELVIC COMPLETE, 10/24/2018, 18:49. [facility], [place], US PELVIC COMPLETE, 05/08/2019, 9:07. [facility], CT, CT ABDOMEN PELVIS W CON, 09/02/2019, 11:17. [facility], , US PELVIC COMPLETE, 09/18/2020, 16:28. FINDINGS: Uterus: Removed. Ovaries: The right ovary measures 1.9 x 1.3 x 1.3 cm. The left ovary measures 1.7 x 1.5 x 1.6 cm. The ovaries have a normal sonographic appearance. No adnexal masses are seen. Other: No pathologic free abdominal or pelvic fluid. IMPRESSION: No imaging explanation is found for this patient's presenting symptoms. Status post hysterectomy. Dictated by: Wood Mccullough M.D. on 11/12/2020 at 12:10 Approved by: Wood Mccullough M.D. on 11/12/2020 at 12:12
== END ==
PROVIDERS: Family Provider Nurse Practitioner; PCP Registered Nurse Diabetes Educator; Referring Provider Obstetrics & Gynecology; Visit Provider Obstetrics & Gynecology
DX: N80.9 Endometriosis, unspecified (principal); R10.2 Pelvic and perineal pain; G89.29 Other chronic pain; N83.209 Unspecified ovarian cyst, unspecified side
CPT/HCPCS: 76830; 76856

== ENCOUNTER → 2020-11-19 10:13 | Outpatient (CLI) | payer OTHER, SELFPAY ==
[2018-10-25 01:50] VITALS: BMI 38.0
--- NOTE | 2020-11-19 10:17 | DIET.PN ---
Dietary Progress Note Assessment: 30y F c pmx of endometriosis and possible PCOS attending nutrition visit for help c weight loss. 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 Pt also starting process to adopt child. Pt wants to establish a healthy lifestyle to share with her future child(anahi). Pt is going to [place] in March and wants to do zipline with maximum weight of 240#, she is currently 265# so would like to lose 30# over the next 16w. Weight Hx: In fall of 2009 when started college started putting on weight, c endometriosis started Lyrica which caused more weight gain. weight was stable at 170s to 180s in high school c active sports routine including: weights, yoga, and softball got up past 200# in college secondary to reduced exercise and less discretion around food. Pt feels she doesn't eat when stressed and is concerned this may slow her metabolism. HT: 5'6 WT: 250# Weight Goal: 200# BMI: 42 B: bowl cheerios c 1% milk for breakfast c 12oz blonde, nonfat vanilla latte Sn: granny grant apple, 2 cuties, or banana L: 1/2 to 1 peanut butter and jelly, handful baby carrots, 1tbs hummus Sn: jerkey and string cheese D: tacos or taco salad, chicken adobo c white rice and broccoli, meatloaf after dinner hangs out c and dogs not much etoh intake has sweet tooth and likes chocolate but is good about monitoring intake to no more than 2 small pieces in one occasion. Weekends: B: has coffee (Kcup c half and half and 2 tsp sugar) c piece of fruit L: leftover from week or fruit and cheese c deli meat and some grilling (steak, burgers, chicken) has been doing 30 min yoga or walking dogs 5x/w in mornings has been doing this for 2w Nutrition Diagnosis: morbid obesity r/t physical inactivity and high intake refined carbohydrates aeb BMI 42, pt was active in high school and started experiencing weight gain in college, pts food recall shows intake refined cereal, bread, white rice. Interventions: 1. Introduced pt to plate balance. Using handout and food models collaborated c pt on problem solving meal composition to fit 1/4 PRO, 1/4 CHO, and 1/2 F/V. 2. Encouraged pt to start tracking her POs with myCrossfader[employer]. Set pro levels to 90g and kcals to 1800 which should support 1-2# loss weekly. 3. Discussed role of physical activity, cardio and strength training for weight loss and building lean body mass. Pt will continue daily morning yoga or walk, 10 min walk on lunch break, and big physical activity over the weekends to support her weight loss goal. Diet Order: CCD to support weight loss and likely PCOS (per pt) EER: 1800kcal, 90g PRO, 2/3c CHO c meals Monitoring/Evaluations: f/u in 3w for weigh in and to problem solve barriers
[2020-11-19 11:10] VITALS: BMI 42.4
== END ==
PROVIDERS: Family Provider Nurse Practitioner; PCP Registered Nurse Diabetes Educator; Referring Provider Registered Nurse Diabetes Educator; Visit Provider Registered Nurse Diabetes Educator
DX: E66.01 Morbid (severe) obesity due to excess calories (principal)
CPT/HCPCS: 97802

== ENCOUNTER 2020-11-25 05:02 | Emergency (ER) | payer OTHER, SELFPAY ==
[2018-10-25 01:50] VITALS: BMI 38.0
[2020-11-25 05:11] VITALS: BP 139/93; PULSE 98; RESP 18; TEMP 36.1; O2SAT 98; BMI 40.3
--- NOTE | 2020-11-25 05:33 | ED.FEMALEGU ---
HPI - Female Genitourinary <Sandi Birch Williamrajesh - Last Filed: 11/25/20 07:31> General Chief complaint: Urogenital-Female Stated complaint: pelvic pain Time Seen by Provider: 11/25/20 05:17 Source: patient and old records reviewed Mode of arrival: Ambulatory Limitations: no limitations History of Present Illness HPI Narrative: This is a 30-year-old female with complaint of head pelvic pain. Patient states this feels similar to her prior endometriosis flares. Patient states pain started around 130 this morning and has been increasingly intense and uncomfortable. She describes it as bilateral lower pelvic discomfort. She denies any fevers or chills. She has had nausea and 1 episode of emesis earlier this morning. Patient denies any chest pain or shortness of breath. She states pain is all in her lower pelvis. She denies any back or flank pain. She has not had any dysuria, frequency or sense of urgency or incomplete emptying. She denies any new issues with bowel movements. She has not any vaginal bleeding or discharge. She has had a partial hysterectomy but does have both ovaries present. She has had prior ovarian cyst. She has had several ex lap surgeries in the past for evaluation for endometriosis. She is on medication for ADHD, they will suck of air for recent herpes outbreak, contraceptives. Related Data Home Medications Medication Instructions Recorded Confirmed etonogestrel 68 mg subdermal SUBDERMAL 09/18/20 11/19/20 implant naproxen 500 mg tablet 500 mg PO BID 09/18/20 11/19/20 Previous Rx's Medication Instructions Recorded ergocalciferol (vitamin D2) 1,250 1,250 mcg PO QWEEK #12 cap 10/08/20 mcg (50,000 unit) capsule oxycodone-acetaminophen 5 mg-325 1 tab PO Q4-6H PRN #14 tab 10/09/20 mg tablet dicyclomine 20 mg tablet 20 mg PO QID PRN #60 tab 10/12/20 valacyclovir 500 mg tablet 500 mg PO BID #30 tab 10/13/20 eluxadoline 100 mg tablet 100 mg PO BID #30 tab 11/19/20 ondansetron 4 mg PO TID-QID PRN #10 tab 11/25/20 oxycodone 5 mg PO Q4-6H PRN #10 tab 11/25/20 Allergies Allergy/AdvReac Type Severity Reaction Status Date / Time azithromycin [AZITHROMYCIN] Allergy Severe rash/throat Verified 11/19/20 09:19 swelling topiramate [TOPIRAMATE] Allergy Intermediate Rash Verified 11/19/20 09:19 codeine [CODEINE] AdvReac Severe Heartburn Verified 11/19/20 09:19 tramadol [TRAMADOL] AdvReac Intermediate Vomiting Verified 11/19/20 09:19 Review of Systems <Sandi Landaverde DO - Last Filed: 11/25/20 07:31> Review of Systems ROS Unobtainable: All systems reviewed & are unremarkable except as noted in HPI and below Patient History <Sandi Landaverde DO - Last Filed: 11/25/20 07:31> Medical History Abnormal Pap smear of cervix (2013) Acne (2006) Ankle pain (2014) Chronic headaches (2007) Dyslipidemia Eczema (1999) Endometriosis (2007) Gastric ulcer (2015) Herpes (2014) History of heavy periods (2005) HPV (human papilloma virus) infection (2013) IBS (irritable bowel syndrome) Irregular menstrual cycle (~2005) Learning disability Migraines (2007) Obesity Ovarian cyst (2007) Painful menstrual periods (2003) POTS (postural orthostatic tachycardia syndrome) (~2017) Shoulder pain (~2017) Surgical History Anesthesia History of ankle surgery History of laparoscopy (10/27/18) History of orthopedic surgery (07/16/15) History of shoulder surgery (~01/25/20) History of tonsillectomy (06/2010) S/P laparoscopic procedure (~05/28/19) S/P laparoscopy (10/26/18) Status post appendectomy (01/2008) Status post laparoscopy (2007) Status post laparoscopy (2009) Status post laparoscopy (07/19/14) Status post ovarian cystectomy (2007) Family History Grandfather Age: 84 Colon cancer Grandmother Age: 83 Scoliosis Grandfather Lung cancer Mother Oral cancer Anxiety Father Cancer Hypertension ADHD Sister History of bipolar disorder alcohol intake frequency: holidays/special occasions only Substance Use Type: does not use Exam <Sandi Landaverde DO - Last Filed: 11/25/20 07:31> Narrative Exam Narrative: GENERAL: Alert and oriented x three, BMI 40 patient in mild to moderate distress. HEENT: Head normocephalic, atraumatic, EOMI, pupils reactive, face symmetric, moist mucous membranes NECK: Supple, full range of motion CARDIOVASCULAR: Regular rate and rhythm without murmurs, rubs or gallops. RESPIRATORY: Breath sounds equal bilaterally, no wheezes rales or rhonchi. ABDOMEN: Soft, positive for bilateral pelvic pain. Normoactive bowel sounds all 4 quadrants. No guarding or rebound, rigidity, no mass, no rigidity, rebound or guarding. : No CVA tenderness EXTREMITIES: Normal range of motion, no clubbing or edema. Neurovascularly intact NEUROLOGICAL: Cranial nerves II through XII grossly intact. Moving all extremities SKIN: Warm, dry, no petechiae, no rashes or lesions. Initial Vital Signs Initial Vital Signs: Vital Signs Temperature 97.0 F L 11/25/20 05:11 Pulse Rate 98 H 11/25/20 05:11 Respiratory Rate 18 11/25/20 05:11 Blood Pressure 139/93 H 11/25/20 05:11 Pulse Oximetry 98 11/25/20 05:11 <Yemi Carranza DO - Last Filed: 11/26/20 04:43> Initial Vital Signs Initial Vital Signs: Vital Signs Temperature 97.0 F L 11/25/20 05:11 Pulse Rate 98 H 11/25/20 05:11 Respiratory Rate 18 11/25/20 05:11 Blood Pressure 139/93 H 11/25/20 05:11 Pulse Oximetry 98 11/25/20 05:11 Course <Sandi Landaverde DO - Last Filed: 11/25/20 07:31> Orders Ordered: Discontinued Medications Hydromorphone HCl (Hydromorphone 1 Mg Inj) 1 mg IV NOW ONE Stop: 11/25/20 06:16 Last Admin: 11/25/20 06:26 Dose: 1 mg Documented by: PALMIRA Hydromorphone HCl (Hydromorphone 1 Mg Inj) 1 mg IV NOW ONE Stop: 11/25/20 07:30 Last Admin: 11/25/20 07:35 Dose: 1 mg Documented by: STANFORD Ketorolac Tromethamine (Ketorolac 30 Mg/Ml Vial) 30 mg IV NOW ONE Stop: 11/25/20 05:33 Last Admin: 11/25/20 05:51 Dose: 30 mg Documented by: PALMIRA Ondansetron HCl (Ondansetron 4 Mg/2 Ml Inj) 4 mg IV NOW ONE Stop: 11/25/20 05:33 Last Admin: 11/25/20 05:51 Dose: 4 mg Documented by: PALMIRA Ondansetron HCl (Ondansetron 4 Mg/2 Ml Inj) 4 mg IV NOW ONE Stop: 11/25/20 08:20 Last Admin: 11/25/20 08:38 Dose: 4 mg Documented by: ERIC Vital Signs Vital signs: Vital Signs - 8 hr 11/25/20 05:11 Temperature 97.0 F L Pulse Rate 98 H Respiratory Rate 18 Blood Pressure 139/93 H Pulse Oximetry 98 <Yemi Carranza DO - Last Filed: 11/26/20 04:43> Course Course Narrative: Patient received in sign-out from other provider at the end of their shift. I have performed an independent history and physical and have no significant additional findings. Ultrasound was unremarkable. Patient pain controlled, tolerating orals. Return precautions given and questions answered to her apparent satisfaction Orders Ordered: Discontinued Medications Hydromorphone HCl (Hydromorphone 1 Mg Inj) 1 mg IV NOW ONE Stop: 11/25/20 06:16 Last Admin: 11/25/20 06:26 Dose: 1 mg Documented by: PALMIRA Hydromorphone HCl (Hydromorphone 1 Mg Inj) 1 mg IV NOW ONE Stop: 11/25/20 07:30 Last Admin: 11/25/20 07:35 Dose: 1 mg Documented by: STANFORD Ketorolac Tromethamine (Ketorolac 30 Mg/Ml Vial) 30 mg IV NOW ONE Stop: 11/25/20 05:33 Last Admin: 11/25/20 05:51 Dose: 30 mg Documented by: PALMIRA Ondansetron HCl (Ondansetron 4 Mg/2 Ml Inj) 4 mg IV NOW ONE Stop: 11/25/20 05:33 Last Admin: 11/25/20 05:51 Dose: 4 mg Documented by: PALMIRA Ondansetron HCl (Ondansetron 4 Mg/2 Ml Inj) 4 mg IV NOW ONE Stop: 11/25/20 08:20 Last Admin: 11/25/20 08:38 Dose: 4 mg Documented by: ERIC Vital Signs Vital signs: Vital Signs - 8 hr 11/25/20 05:11 Temperature 97.0 F L Pulse Rate 98 H Respiratory Rate 18 Blood Pressure 139/93 H Pulse Oximetry 98 MDM - Female Genitourinary <Sandi Landaverde DO - Last Filed: 11/25/20 07:31> Lab Data Attestation: I reviewed the patient's lab results. Result diagrams: 11/25/20 05:45 11/25/20 05:45 Labs: Lab Results 11/25/20 11/25/20 Range/Units 05:45 05:45 WBC 9.8 (4.5-11.0) X10^3/uL RBC 4.72 (4.0-5.2) X10^6/uL Hgb 13.8 (12.0-16.0) g/dL Hct 39.7 (36-46) % MCV 84.1 (80-100) fL MCH 29.2 (26-34) PG MCHC 34.7 (30-36) % RDW 12.6 (11.6-14.8) % Plt Count 459 H (150-400) X10^3/uL Neut % (Auto) 65.6 (50-75) % Lymph % (Auto) 26.9 (25-40) % [place] % (Auto) 5.5 (3-14) % Eos % (Auto) 1.7 L (2-4) % Baso % (Auto) 0.3 (0-2) % Neut # (Auto) 6500 (6032-0993) /uL Lymph # (Auto) 2700 (8069-2218) /uL [place] # (Auto) 500 (0-900) /uL Eos # (Auto) 200 (0-450) /uL Baso # (Auto) 0 (0-100) /uL Sodium 138 (137-145) mmol/L Potassium 4.3 (3.4-5.1) mmol/L Chloride 110 H (98-107) mmol/L Carbon Dioxide 23 (22-32) mmol/L BUN 13 (7-17) mg/dL Creatinine 0.78 (0.52-1.04) mg/dL Estimated GFR > 60.0 (>60) mL/min BUN/Creatinine Ratio 16.7 (6-22) Glucose 103 H (70-100) mg/dL Calcium 9.9 (8.4-10.2) mg/dL Total Bilirubin 0.5 (0.2-1.3) mg/dL AST 26 (14-36) IU/L ALT 22 (<35) IU/L Alkaline Phosphatase 101 (38-126) U/L Total Protein 7.6 (6.3-8.2) g/dL Albumin 4.4 (3.5-5.0) g/dL Globulin 3.2 (1.7-4.1) g/dL Albumin/Globulin Ratio 1.4 (1.0-2.8) Lipase 127 (23-300) U/L Urine Dip Bedside Urine Glucose Negative Bedside Urine Bilirubin - Negative Bedside Urine Ketone - Negative Urine Specific [place] 1.020 Bedside Urine Occult Blood +/- Bedside Urine pH 6.0 Bedside Urine Protein - Negative Bedside Urine Urobilinogen - Negative Bedside Urine Nitrite - Negative Bedside Urine Leukocytes - Negative Esterase MDM Narrative Medical decision making narrative: Female who suspect she is having a flare of her endometriosis. Patient states she has been having increasing pain since 08/16 this morning. She has bilateral lower pelvic pain on exam. No rigidity, rebound or guarding. Discussed with patient plan for labs, Toradol as well as antiemetic and recheck. Patient had not had improvement. Discussed with patient plan for imaging with US. Patient signed out to Dr. Carranza while awaiting imaging. <Yemi Carranza, DO - Last Filed: 11/26/20 04:43> Lab Data Labs: Lab Results 11/25/20 11/25/20 Range/Units 05:45 05:45 WBC 9.8 (4.5-11.0) X10^3/uL RBC 4.72 (4.0-5.2) X10^6/uL Hgb 13.8 (12.0-16.0) g/dL Hct 39.7 (36-46) % MCV 84.1 (80-100) fL MCH 29.2 (26-34) PG MCHC 34.7 (30-36) % RDW 12.6 (11.6-14.8) % Plt Count 459 H (150-400) X10^3/uL Neut % (Auto) 65.6 (50-75) % Lymph % (Auto) 26.9 (25-40) % [place] % (Auto) 5.5 (3-14) % Eos % (Auto) 1.7 L (2-4) % Baso % (Auto) 0.3 (0-2) % Neut # (Auto) 6500 (3587-0544) /uL Lymph # (Auto) 2700 (2576-5709) /uL [place] # (Auto) 500 (0-900) /uL Eos # (Auto) 200 (0-450) /uL Baso # (Auto) 0 (0-100) /uL Sodium 138 (137-145) mmol/L Potassium 4.3 (3.4-5.1) mmol/L Chloride 110 H (98-107) mmol/L Carbon Dioxide 23 (22-32) mmol/L BUN 13 (7-17) mg/dL Creatinine 0.78 (0.52-1.04) mg/dL Estimated GFR > 60.0 (>60) mL/min BUN/Creatinine Ratio 16.7 (6-22) Glucose 103 H (70-100) mg/dL Calcium 9.9 (8.4-10.2) mg/dL Total Bilirubin 0.5 (0.2-1.3) mg/dL AST 26 (14-36) IU/L ALT 22 (<35) IU/L Alkaline Phosphatase 101 (38-126) U/L Total Protein 7.6 (6.3-8.2) g/dL Albumin 4.4 (3.5-5.0) g/dL Globulin 3.2 (1.7-4.1) g/dL Albumin/Globulin Ratio 1.4 (1.0-2.8) Lipase 127 (23-300) U/L Urine Dip Bedside Urine Glucose Negative Bedside Urine Bilirubin - Negative Bedside Urine Ketone - Negative Urine Specific [place] 1.020 Bedside Urine Occult Blood +/- Bedside Urine pH 6.0 Bedside Urine Protein - Negative Bedside Urine Urobilinogen - Negative Bedside Urine Nitrite - Negative Bedside Urine Leukocytes - Negative Esterase Discharge Plan Departure Patient Disposition: Home Clinical Impression: Pelvic pain Instructions: Chronic Pelvic Pain-Female Activity Restrictions/Additional Instructions: *You have been diagnosed with [pelvic pain, your physical exam, labs and imaging are very reassuring.] *What to do: *Please continue to take your regular medications as directed. [x] New medication prescriptions sent to your pharmacy: [[facility] ] [ ] New medication written as a paper prescription [ ] No new medications given *Please follow up with your primary care provider in 2-3 days, call for an appointment. Let them know you were seen in the Emergency Department and that we ask that you be seen in follow up. We will electronically transmit a record of today's note if your PCP is in our system *If you do not have a primary care provider please contact the [facility] Resource line at [phone]. They will ask some questions about your medical history and help get you set up with a doctor in the community. *Return to Emergency Department if you should have any new, worsening or concerning symptoms, such as [fever greater than 101 F, shaking chills, worsening pain, persistent vomiting or other bothersome symptoms] Prescriptions: New ondansetron 4 mg tablet,disintegrating 4 mg PO TID-QID PRN (Reason: nausea and vomiting) Qty: 10 RF: 0 oxycodone 5 mg tablet 5 mg PO Q4-6H PRN (Reason: pain) Qty: 10 RF: 0 No Action dicyclomine 20 mg tablet 20 mg PO QID PRN (Reason: abdominal cramping) Qty: 60 RF: 3 valacyclovir [Valtrex] 500 mg tablet 500 mg PO BID Qty: 30 RF: 3 Nexplanon 68 mg implant subdermal RF: 0 naproxen 500 mg tablet 500 mg PO BID RF: 0 Viberzi 100 mg tablet 100 mg PO BID Qty: 30 RF: 0 oxycodone-acetaminophen [Percocet] 5-325 mg tablet 1 tab PO Q4-6H PRN (Reason: pain) Qty: 14 RF: 0 ergocalciferol (vitamin D2) 1,250 mcg (50,000 unit) capsule 1,250 mcg PO QWEEK Qty: 12 RF: 1 Referrals: Salvador Gerardo ARNP [Primary Care Provider] - Stand Alone Forms: Work Release Note
[2020-11-25] MEDS: KETOROLAC 30 MG/ML VIAL IV (05:51)
[2020-11-25] MEDS: ONDANSETRON 4 MG/2 ML INJ IV ×2 (05:51→08:38)
[2020-11-25] MEDS: HYDROMORPHONE 1 MG INJ IV ×2 (06:26→07:35)
[2020-11-25 06:57] LABS: Alanine Aminotransferase 22 IU/L (<35); Albumin 4.4 g/dL (3.5-5.0); Albumin Globulin Ratio 1.4 (1.0-2.8); Alkaline Phosphatase 101 U/L (38-126); Aspartate Aminotransferase 26 IU/L (14-36); BUN Creatinine Ratio 16.7 (6-22); Bilirubin Total 0.5 mg/dL (0.2-1.3); Blood Urea Nitrogen 13 mg/dL (7-17); Calcium 9.9 mg/dL (8.4-10.2); Carbon Dioxide 23 mmol/L (22-32); Chloride 110 mmol/L (98-107); Estimated Glomerular Filt Rate > 60.0 mL/min (>60); Globulin 3.2 g/dL (1.7-4.1); Glucose 103 mg/dL (70-100); HEMOLYSIS < 15 (0-50); Lipase 127 U/L (23-300); Potassium 4.3 mmol/L (3.4-5.1); Sodium 138 mmol/L (137-145); Total Protein 7.6 g/dL (6.3-8.2)
[2020-11-25 07:13] LABS: Add Manual Diff / Slide Review NO; Basophils Absolute Auto 0 /uL (0-100); Basophils Percent Auto 0.3 % (0-2); Eosinophils Absolute Auto 200 /uL (0-450); Eosinophils Percent Auto 1.7 % (2-4); Hematocrit 39.7 % (36-46); Hemoglobin 13.8 g/dL (12.0-16.0); Lymphocytes Absolute Auto 2700 /uL (1100-4500); Lymphocytes Percent Auto 26.9 % (25-40); Mean Corpuscular HGB Conc 34.7 % (30-36); Mean Corpuscular Hemoglobin 29.2 PG (26-34); Mean Corpuscular Volume 84.1 fL (80-100); Monocytes Absolute Auto 500 /uL (0-900); Monocytes Percent Auto 5.5 % (3-14); Neutrophils Absolute Auto 6500 /uL (1500-7000); Neutrophils Percent Auto 65.6 % (50-75); Platelet Count 459 X10^3/uL (150-400); Red Blood Cell Count 4.72 X10^6/uL (4.0-5.2); Red Cell Distribution Width 12.6 % (11.6-14.8); White Blood Cell Count 9.8 X10^3/uL (4.5-11.0)
--- NOTE | 2020-11-25 07:29 | DI.US.S_ITS ---
PROCEDURE: US PELVIC COMPLETE INDICATIONS: PAIN TECHNIQUE: Real-time scanning was performed of the pelvic organs, with image documentation. Additional endovaginal scanning was necessary due to incomplete visualization of the adnexal and endometrial structures by transabdominal scanning. COMPARISON: [facility], , US PELVIC COMPLETE, 11/12/2020, 11:27. FINDINGS: Uterus: Uterus is surgically absent. No gross abnormality is seen in vaginal cuff region. Ovaries: Right ovary measures 2.3 x 3.4 x 2.3 cm in size. Left ovary is not visualized on this study. Limited evaluation of right ovary for blood flow due to patient's body habitus. No gross adnexal mass or solid appearing ovarian lesion is seen. Other: No pathologic free abdominal or pelvic fluid. IMPRESSION: 1. Prior hysterectomy. No gross abnormality is seen in vaginal cuff region. 2. Left ovary is not visualized. Right ovary show no gross abnormality although evaluation for blood flow is limited due to patient's body habitus. Torsion cannot be definitively excluded. Dictated by: Cruzito Sloan M.D. on 11/25/2020 at 8:24 Approved by: Cruizto Sloan M.D. on 11/25/2020 at 8:33
[2020-11-25 08:56] VITALS: BP 174/104; PULSE 76; RESP 16; O2SAT 98
== END 2020-11-25 08:58 | disposition home or self-care (01) ==
PROVIDERS: Emergency Medicine; Emergency Provider Emergency Medicine; Family Provider Nurse Practitioner; PCP Registered Nurse Diabetes Educator
DX: R10.2 Pelvic and perineal pain (principal); R11.2 Nausea with vomiting, unspecified
CPT/HCPCS: 36415; 76830; 76856; 80053; 81003; 83690; 85025; 93005; 93010; 96374; 96375; 96376; 99284; J1170; J1885; J2405

== ENCOUNTER → 2020-12-04 06:35 | Outpatient (CLI) | payer OTHER, SELFPAY ==
[2018-10-25 01:50] VITALS: BMI 38.0
--- NOTE | 2020-12-04 08:03 | DI.CT.S_ITS ---
PROCEDURE: CT ABDOMEN PELVIS W CON INDICATIONS: Left pelvic pain, unable to visualize L ovary on US TECHNIQUE: After the administration of oral and intravenous contrast, 5 mm thick sections acquired from the diaphragm to the symphysis. 5 mm coronal and sagittal reformats were acquired. For radiation dose reduction, the following was used: automated exposure control, adjustment of mA and/or kV according to patient size. COMPARISON: [facility], CT, CT ABDOMEN PELVIS WO CON, 10/24/2018, 20:45. [facility], US, US PELVIC COMPLETE, 12/02/2020, 8:26. [facility], CT, ABDOMEN/PELVIS WITH CONTRAST, 04/21/2014, 14:13. CT, KIDNEY/ URETER/BLADDER, 04/19/2014, 14:02. [facility], CT, CT ABDOMEN PELVIS W CON, 09/02/2019, 11:17. FINDINGS: Image quality: Excellent. ABDOMEN: Lung bases: Lung bases are clear. Heart size is normal. Solid organs: Liver is normal in size. There is a 6 mm low-density nodule near the hepatic dome, most likely a cyst or hemangioma. Gallbladder is normal. Biliary system is non dilated. Pancreas enhances normally. Spleen is normal in size and enhancement. No adrenal nodules. Kidneys demonstrate normal size and enhancement, without hydronephrosis. Peritoneum and bowel: Bowel loops demonstrate normal wall thickness and caliber. There is a moderate amount of stool in colon. No free fluid or air. Nodes and vessels: No retroperitoneal or mesenteric adenopathy by size criteria. Aorta and inferior vena cava are normal in size. Miscellaneous: No ventral hernias. PELVIS: Genitourinary: Uterus is absent. There is a 2.4 cm right ovarian cyst. Left ovary is normal (series 2, image 84). No free fluid in pelvis. Bladder wall thickness is normal. Miscellaneous: No inguinal hernias or adenopathy. Bones: No suspicious bony lesions. No vertebral body compression fractures. IMPRESSION: 1. No acute abnormalities in abdomen or pelvis. 2. Hysterectomy. There is a 2.4 cm right ovarian cyst, most likely a dominant ovarian follicle. Left ovary is normal. No free fluid in pelvis. Dictated by: Kevin Mendoza M.D. on 12/04/2020 at 8:28 Approved by: Kevin Mendoza M.D. on 12/04/2020 at 8:35
== END ==
PROVIDERS: Family Provider Nurse Practitioner; PCP Registered Nurse Diabetes Educator; Referring Provider Obstetrics & Gynecology; Visit Provider Obstetrics & Gynecology
DX: R10.2 Pelvic and perineal pain (principal); N80.9 Endometriosis, unspecified; N83.201 Unspecified ovarian cyst, right side; Z90.710 Acquired absence of both cervix and uterus
CPT/HCPCS: 74177

== ENCOUNTER → 2020-12-10 14:58 | Outpatient (CLI) | payer OTHER, SELFPAY ==
[2018-10-25 01:50] VITALS: BMI 38.0
--- NOTE | 2020-12-10 15:02 | DIET.PN ---
Dietary Progress Note 30[address] f/u for help with weight loss and overall healthy eating in the context of endometriosis and IBS-d. Current weight: 256# (-4# in 3w) Pt started tracking sleep and food using fitbit and [employer] with calories set to 1900 with macro ratios of 50% carbs, 30% fat, and 20% protein. 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 Pt has felt overwhelmed with work and some health issues since we last met. Pt is doing yoga each morning and tries to go on 30 min walk at lunch time. Pt sticking to 1300 or so kcals daily but has had several under 1,000 secondary to not feeling well. Interventions: 1. Discussed behavior change and prioritizing self-care. Pt endorses putting others before herself often. Discussed times of stress and how exercise can help to decrease stress. 2. Because pt signed up for [employer] pal after our last visit, RD adjusted her kcals down to 1350 and changed macro ratios to 40% cho, 30% pro, and 30% fat. 3. Discussed pts slower metabolism and how increasing muscle mass will help speed things up. Pt will look into adding two 20 minute HIIT workouts per week to current routine. Pt has goal of getting down to 230# by March when she goes to [place] so she can do the zipline. F/u in 3w to assess progress and problem solve barriers.
== END ==
PROVIDERS: Family Provider Nurse Practitioner; PCP Registered Nurse Diabetes Educator; Referring Provider Registered Nurse Diabetes Educator; Visit Provider Registered Nurse Diabetes Educator
DX: N80.9 Endometriosis, unspecified (principal); K58.0 Irritable bowel syndrome with diarrhea
CPT/HCPCS: 97803

== ENCOUNTER → 2020-12-31 11:47 | Outpatient (CLI) | payer OTHER, SELFPAY ==
[2018-10-25 01:50] VITALS: BMI 38.0
--- NOTE | 2020-12-31 12:23 | DIET.PN ---
Addendum entered by Erin Dee 12/31/20 12:52: Pt somewhat frustrated that she has not lost more weight and her clothes are fitting tighter despite sticking to 1350 kcals per day and committing to walking at lunches and doing yoga in the mornings. A review of her food journal shows good portion control and food pairings. Pt wants to discuss using a weight loss aid medication to jump start her weight loss. RD okay with this option. Original Note: Dietary Progress Note doing some walking and yoga in mornings, has been swimming Tuesday mornings purchased stationary bike and free weights for home gym- planning to work out with and be accountability partners walking almost 1.5 miles in 30 min at work in fat burn zone 257# Thigh 31 Bra line 45 Arm 17
== END ==
PROVIDERS: Family Provider Nurse Practitioner; PCP Registered Nurse Diabetes Educator; Referring Provider Registered Nurse Diabetes Educator; Visit Provider Registered Nurse Diabetes Educator
DX: E66.9 Obesity, unspecified (principal); Z71.3 Dietary counseling and surveillance
CPT/HCPCS: 97803

== ENCOUNTER → 2021-02-20 09:44 | Outpatient (CLI) | payer OTHER, SELFPAY ==
[2018-10-25 01:50] VITALS: BMI 38.0
--- NOTE | 2021-02-20 09:46 | DI.US.S_ITS ---
PROCEDURE: US BREAST RT LIMITED INDICATIONS: POSSIBLE BREAST ABSCESS FINDINGS: There is skin thickening, trabecular thickening, and mildly increased vascularity throughout visualized superior portions of the right breast, consistent with mastitis. At the 10 o'clock position 3 cm from the nipple, there is an oval hypoechoic lesion measuring 1.4 x 1.5 x 0.4 cm without internal vascularity. An additional oval heterogeneously hypoechoic area without internal vascularity is seen at the 12 o'clock position 3 cm from the nipple measuring 1.4 x 0.9 x 0.3 cm. No drainable fluid collection is seen. IMPRESSION: Right breast skin and trabecular thickening with increased vascularity is consistent with mastitis. Small hypoechoic areas at the 10 o'clock and 12 o'clock positions are nonspecific and could represent areas of more focal mastitis or focally dilated ducts versus small developing abscesses, which are too small for percutaneous drainage. No well-formed drainable abscess is seen. Recommend clinical correlation and follow-up. Additionally, follow-up ultrasound is recommended in approximately 3 months once symptoms have resolved to exclude an underlying mass. BIRADS 3: Probably benign. Recommend 3-month follow up right breast ultrasound. This is a preliminary report to convey stat results. A final standardized BIRADS report will be issued soon. Dictated by: Te Arnett M.D. on 02/20/2021 at 11:21 Approved by: Te Arnett M.D. on 02/20/2021 at 11:31
== END ==
PROVIDERS: Family Provider Nurse Practitioner; PCP Registered Nurse Diabetes Educator; Referring Provider Family Medicine; Visit Provider Family Medicine
DX: N61.0 Mastitis without abscess (principal)
CPT/HCPCS: 76642

== ENCOUNTER 2021-02-20 11:45 | Observation (INO) | payer OTHER, SELFPAY ==
[2018-10-25 01:50] VITALS: BMI 38.0
[2021-02-20 11:45] VITALS: BP 131/87; PULSE 99; RESP 16; TEMP 36.8; O2SAT 99; BMI 43.5
--- NOTE | 2021-02-20 12:08 | ED_ITS ---
HPI - Skin/Abscess/Foreign Bdy General Chief complaint: Skin/Abscess/Foreign Body Stated complaint: Infection in Rt Breast, Sent From Dr Time Seen by Provider: 02/20/21 11:50 History of Present Illness HPI narrative: 31-year-old female nonsmoker with history of irritable bowel syndrome, cervical radiculopathy an ovarian cyst presents from her primary care provider for evaluation of an infection in her right breast. She has been seen and evaluated in on 2 courses of antibiotics including clindamycin and then Bactrim. She had ultrasound today suggesting and worsening condition and p ossible abscess. She complains of being dizzy, lightheaded, nauseated and febrile. She feels generally unwell Related Data Home Medications Medication Instructions Recorded Confirmed etonogestrel 68 mg subdermal SUBDERMAL 09/18/20 02/20/21 implant (Nexplanon) naproxen 500 mg tablet 500 mg PO BID 09/18/20 02/20/21 clonidine HCl 0.1 mg tablet 0.1 mg PO DAILY tab 01/07/21 02/20/21 Previous Rx's Medication Instructions Recorded ondansetron 4 mg disintegrating 4 mg PO TID-QID PRN #30 tab 11/26/20 tablet eluxadoline 100 mg tablet (Viberzi) 100 mg PO BID #180 tab 12/12/20 dicyclomine 20 mg tablet 20 mg PO QID PRN #60 tab 12/16/20 ergocalciferol (vitamin D2) 1,250 1,250 mcg PO QWEEK #12 cap 12/16/20 mcg (50,000 unit) capsule baclofen 10 mg tablet 10 mg PO TID PRN #30 tab 12/31/20 diphenoxylate-atropine 2.5 1 tab PO QID PRN #60 tab 02/06/21 mg-0.025 mg tablet (Lomotil) CMP Valium Vaginal suppositories 10 mg VAGINAL BID #20 tab 02/11/21 promethazine 25 mg tablet 25 mg PO Q6H PRN #20 tab 02/11/21 valacyclovir 500 mg tablet 500 mg PO DAILY PRN #30 tab 02/11/21 (Valtrex) oxycodone 10 mg tablet 10 mg PO BID PRN #14 tab 02/18/21 sulfamethoxazole 800 2 tab PO BID #28 tab 02/18/21 mg-trimethoprim 160 mg tablet Allergies Allergy/AdvReac Type Severity Reaction Status Date / Time azithromycin [AZITHROMYCIN] Allergy Severe rash/throat Verified 02/20/21 09:29 swelling topiramate [TOPIRAMATE] Allergy Intermediate Rash Verified 02/20/21 09:29 codeine [CODEINE] AdvReac Severe Heartburn Verified 02/20/21 09:29 tramadol [TRAMADOL] AdvReac Intermediate Vomiting Verified 02/20/21 09:29 Review of Systems Review of Systems Narrative: GENERAL: See HPI HEENT: Denies sinus pain, ear pain, sore throat, difficulty swallowing, dizziness. RESPIRATORY: Denies dyspnea, cough, wheezing, hemoptysis, sputum. CARDIOVASCULAR: Denies chest pain, palpitations, orthopnea, edema, GASTROINTESTINAL: Denies nausea, vomiting, abdominal pain, diarrhea, constipation, melena. : Denies dysuria, frequency, incontinence, hematuria, urinary retention. MUSCULOSKELETAL: denies weakness, joint pain, or bony pain SKIN: See HPI NEUROLOGIC: Denies weakness, headache, numbness, change in speech, confusion, seizures, incoordination. PSYCHIATRIC: No concerning psychosocial issues. 12 point review of systems is negative except for those stated above Patient History Medical History Abnormal Pap smear of cervix (2013) Acne (2006) Ankle pain (2014) Breast abscess Breast infection in female Chronic headaches (2007) Dyslipidemia Eczema (1999) Endometriosis (2007) Gastric ulcer (2015) Herpes (2015) History of heavy periods (2005) HPV (human papilloma virus) infection (2013) IBS (irritable bowel syndrome) Irregular menstrual cycle (~2005) Learning disability Migraines (2007) Obesity Ovarian cyst (2007) Painful menstrual periods (2003) POTS (postural orthostatic tachycardia syndrome) (~2017) Shoulder pain (~2017) Surgical History Anesthesia History of ankle surgery History of laparoscopy (10/27/18) History of orthopedic surgery (07/16/15) History of shoulder surgery (~01/25/20) History of tonsillectomy (06/2010) S/P laparoscopic procedure (~05/28/19) S/P laparoscopy (10/26/18) Status post appendectomy (01/2008) Status post laparoscopy (2007) Status post laparoscopy (2009) Status post laparoscopy (07/19/14) Status post ovarian cystectomy (2007) Family History Grandfather Age: 84 Colon cancer Grandmother Age: 83 Scoliosis Grandfather Lung cancer Mother Oral cancer Anxiety Father Cancer Hypertension ADHD Sister History of bipolar disorder Social History household members: spouse Smoking Status: Never smoker alcohol intake: current Smoking Status: Never smoker alcohol intake frequency: holidays/special occasions only Substance Use Type: does not use Exam Narrative Exam Narrative: GENERAL: [31] year old patient appears stated age. Well- developed patient, in mild distress. HEAD: Atraumatic. Normocephalic. EYES: Pupils equal round and reactive. Extraocular motions intact. No scleral icterus. No injection or drainage. ENT: Nose without bleeding, purulent drainage. Throat without erythema, tonsil lar hypertrophy or exudate. Airway patent. NECK: Trachea midline. Non tender CARDIOVASCULAR: Regular rate and rhythm without murmurs, gallops, or rubs. RESPIRATORY: Clear to auscultation. Breath sounds equal bilaterally. No wheezes, rales, or rhonchi. GASTROINTESTINAL: Abdomen soft, non-tender, nondistended. EXTREMITIES: No edema or joint tenderness. BACK: Nontender without deformity or crepitance. No flank tenderness. NEURO: AOx3. SKIN: REdness, swelling, and pain of left breast. No induration, fluctuance noted Initial Vital Signs Initial Vital Signs: Vital Signs Temperature 98.3 F 02/20/21 11:45 Pulse Rate 99 H 02/20/21 11:45 Respiratory Rate 16 02/20/21 11:45 Blood Pressure 131/87 02/20/21 11:45 Pulse Oximetry 99 02/20/21 11:45 Course Orders Ordered: ED Orders 02/20/21 12:20 COVID19 - ADMIT (SW[employer] swab/PCR) Stat 02/20/21 13:38 Blood Culture Stat Complete Blood Count AUTO DIFF Stat Comprehensive Metabolic Panel Stat Lactate (Lactic Acid) Stat Hydromorphone HCl (Hydromorphone 0.5 Mg Inj) 1 mg IV Q2H PRN PRN Reason: Pain, Severe (7-10) Last Admin: 02/20/21 19:03 Dose: 1 mg Documented by: Admin: 02/20/21 16:28 Dose: 1 mg Documented by: ERNIE Sodium Chloride (Normal Saline 0.9%) 1,000 mls @ 125 mls/hr IV CONT YAN Last Admin: 02/20/21 16:29 Dose: 125 mls/hr Documented by: ERNIE Non-Formulary Medication (Eluxadoline [Viberzi]) 100 mg PO BID [facility] Ondansetron HCl (Ondansetron 4 Mg/2 Ml Inj) 4 mg IV Q4HR PRN PRN Reason: Nausea And Vomiting Last Admin: 02/20/21 19:05 Dose: 4 mg Documented by: GUADALUPE Oxycodone HCl (Oxycodone Ir 10 Mg Tablet) 10 mg PO BID PRN PRN Reason: pain Last Admin: 02/20/21 17:34 Dose: 10 mg Documented by: ERNIE Promethazine HCl (Promethazine 25 Mg Tablet) 25 mg PO Q6H PRN PRN Reason: nausea and vomiting Discontinued Medications Hydromorphone HCl (Hydromorphone 0.5 Mg Inj) 0.5 mg IV NOW ONE Stop: 02/20/21 12:50 Last Admin: 02/20/21 13:06 Dose: 0.5 mg Documented by: SETH Hydromorphone HCl (Hydromorphone 0.5 Mg Inj) 0.5 mg IV NOW ONE Stop: 02/20/21 14:00 Last Admin: 02/20/21 14:04 Dose: 0.5 mg Documented by: TADEO Sodium Chloride (Normal Saline 0.9%) 1,000 mls @ 1,000 mls/hr IV BOLUS ONE Stop: 02/20/21 13:09 Last Infusion: 02/20/21 15:57 Dose: 0 mls/hr Documented by: Admin: 02/20/21 12:35 Dose: 1,000 mls/hr Documented by: SETH Vancomycin HCl/Dextrose (Vancomycin) 2,000 mg in 400 mls @ 200 mls/hr IV NOW ONE Stop: 02/20/21 14:50 Last Infusion: 02/20/21 15:57 Dose: 0 mls/hr Documented by: Admin: 02/20/21 13:42 Dose: 200 mls/hr Documented by: ATAYLOR Ondansetron HCl (Ondansetron 4 Mg/2 Ml Inj) 4 mg IV NOW ONE Stop: 02/20/21 12:50 Last Admin: 02/20/21 13:06 Dose: 4 mg Documented by: ATAYLOR Ondansetron HCl (Ondansetron 4 Mg/2 Ml Inj) 4 mg IV NOW ONE Stop: 02/20/21 15:35 Last Admin: 02/20/21 15:40 Dose: 4 mg Documented by: ATAYLOR Vital Signs Vital signs: Vital Signs - 8 hr 02/20/21 11:45 Temperature 98.3 F Pulse Rate 99 H Respiratory Rate 16 Blood Pressure 131/87 Pulse Oximetry 99 MDM - Skin/Abscess/Foreign Bdy Lab Data Result diagrams: 02/20/21 13:38 02/20/21 13:38 Labs: Lab Results 02/20/21 02/20/21 02/20/21 Range/Units 12:20 13:38 13:38 WBC 7.5 (4.5-11.0) X10^3/uL RBC 3.81 L (4.0-5.2) X10^6/uL Hgb 11.2 L (12.0-16.0) g/dL Hct 32.8 L (36-46) % MCV 85.9 (80-100) fL MCH 29.4 (26-34) PG MCHC 34.3 (30-36) % RDW 12.9 (11.6-14.8) % Plt Count 306 (150-400) X10^3/uL Neut % (Auto) 62.7 (50-75) % Lymph % (Auto) 24.5 L (25-40) % [place] % (Auto) 9.5 (3-14) % Eos % (Auto) 2.7 (2-4) % Baso % (Auto) 0.6 (0-2) % Neut # (Auto) 4700 (9711-0736) /uL Lymph # (Auto) 1800 (1535-3169) /uL [place] # (Auto) 700 (0-900) /uL Eos # (Auto) 200 (0-450) /uL Baso # (Auto) 0 (0-100) /uL Sodium 137 (137-145) mmol/L Potassium 4.0 (3.4-5.1) mmol/L Chloride 112 H (98-107) mmol/L Carbon Dioxide 21 L (22-32) mmol/L BUN 12 (7-17) mg/dL Creatinine 0.70 (0.52-1.04) mg/dL Estimated GFR > 60.0 (>60) mL/min BUN/Creatinine Ratio 17.1 (6-22) Glucose 80 (70-100) mg/dL Lactate (0.7-2.1) mmol/L Calcium 8.1 L (8.4-10.2) mg/dL Total Bilirubin 0.6 (0.2-1.3) mg/dL AST 27 (14-36) IU/L ALT 24 (<35) IU/L Alkaline Phosphatase 73 (38-126) U/L Total Protein 6.0 L (6.3-8.2) g/dL Albumin 3.2 L (3.5-5.0) g/dL Globulin 2.8 (1.7-4.1) g/dL Albumin/Globulin Ratio 1.1 (1.0-2.8) SARS-CoV-2 (PCR) Negative (Negative) 02/20/21 Range/Units 13:38 WBC (4.5-11.0) X10^3/uL RBC (4.0-5.2) X10^6/uL Hgb (12.0-16.0) g/dL Hct (36-46) % MCV (80-100) fL MCH (26-34) PG MCHC (30-36) % RDW (11.6-14.8) % Plt Count (150-400) X10^3/uL Neut % (Auto) (50-75) % Lymph % (Auto) (25-40) % [place] % (Auto) (3-14) % Eos % (Auto) (2-4) % Baso % (Auto) (0-2) % Neut # (Auto) (6313-1932) /uL Lymph # (Auto) (5332-1152) /uL [place] # (Auto) (0-900) /uL Eos # (Auto) (0-450) /uL Baso # (Auto) (0-100) /uL Sodium (137-145) mmol/L Potassium (3.4-5.1) mmol/L Chloride (98-107) mmol/L Carbon Dioxide (22-32) mmol/L BUN (7-17) mg/dL Creatinine (0.52-1.04) mg/dL Estimated GFR (>60) mL/min BUN/Creatinine Ratio (6-22) Glucose (70-100) mg/dL Lactate 0.6 L (0.7-2.1) mmol/L Calcium (8.4-10.2) mg/dL Total Bilirubin (0.2-1.3) mg/dL AST (14-36) IU/L ALT (<35) IU/L Alkaline Phosphatase (38-126) U/L Total Protein (6.3-8.2) g/dL Albumin (3.5-5.0) g/dL Globulin (1.7-4.1) g/dL Albumin/Globulin Ratio (1.0-2.8) SARS-CoV-2 (PCR) (Negative) Urine Dip Bedside Urine Glucose Negative Bedside Urine Bilirubin - Negative Bedside Urine Ketone - Negative Urine Specific [place] 1.020 Bedside Urine Occult Blood - Negative Bedside Urine pH 6.0 Bedside Urine Protein - Negative Bedside Urine Urobilinogen 0.2 Bedside Urine Nitrite - Negative Bedside Urine Leukocytes - Negative Esterase MDM Narrative Medical decision making narrative: Patient does have reassuring labs and vital signs, however ultrasound demonstrates concern for early abscess in the tissue of her right breast. This is despite the use of 2 rounds of antibiotics orally as an outpatient. She will require hospitalization for ongoing evaluation, use of IV antibiotics. Discharge Plan Departure Patient Disposition: Admitted as Observation Clinical Impression: Abscess of breast Admit Date/Time: 02/20/21 15:05 Admit Provider: Khushbu Saldivar
[2021-02-20] MEDS: SODIUM CHLORIDE 0.9% 1,000 ML 1000 ML IV (12:35)
[2021-02-20] MEDS: HYDROMORPHONE 0.5 MG INJ IV ×2 (13:06→14:04)
[2021-02-20] MEDS: ONDANSETRON 4 MG/2 ML INJ IV ×3 (13:06→19:05)
[2021-02-20 13:29] LABS: COVID19 - ADMIT (NP swab/PCR) Negative (Negative)
[2021-02-20] MEDS: VANCOMYCIN 2,000 MG/400 ML PIGGYBACK 200 MG IV (13:42)
[2021-02-20 13:46] LABS: Add Manual Diff / Slide Review NO; Basophils Absolute Auto 0 /uL (0-100); Basophils Percent Auto 0.6 % (0-2); Eosinophils Absolute Auto 200 /uL (0-450); Eosinophils Percent Auto 2.7 % (2-4); Hematocrit 32.8 % (36-46); Hemoglobin 11.2 g/dL (12.0-16.0); Lymphocytes Absolute Auto 1800 /uL (1100-4500); Lymphocytes Percent Auto 24.5 % (25-40); Mean Corpuscular HGB Conc 34.3 % (30-36); Mean Corpuscular Hemoglobin 29.4 PG (26-34); Mean Corpuscular Volume 85.9 fL (80-100); Monocytes Absolute Auto 700 /uL (0-900); Monocytes Percent Auto 9.5 % (3-14); Neutrophils Absolute Auto 4700 /uL (1500-7000); Neutrophils Percent Auto 62.7 % (50-75); Platelet Count 306 X10^3/uL (150-400); Red Blood Cell Count 3.81 X10^6/uL (4.0-5.2); Red Cell Distribution Width 12.9 % (11.6-14.8); White Blood Cell Count 7.5 X10^3/uL (4.5-11.0)
[2021-02-20 14:00] LABS: Lactate (Lactic Acid) 0.6 mmol/L (0.7-2.1)
[2021-02-20 14:01] LABS: Alanine Aminotransferase 24 IU/L (<35); Albumin 3.2 g/dL (3.5-5.0); Albumin Globulin Ratio 1.1 (1.0-2.8); Alkaline Phosphatase 73 U/L (38-126); Aspartate Aminotransferase 27 IU/L (14-36); BUN Creatinine Ratio 17.1 (6-22); Bilirubin Total 0.6 mg/dL (0.2-1.3); Blood Urea Nitrogen 12 mg/dL (7-17); Calcium 8.1 mg/dL (8.4-10.2); Carbon Dioxide 21 mmol/L (22-32); Chloride 112 mmol/L (98-107); Estimated Glomerular Filt Rate > 60.0 mL/min (>60); Globulin 2.8 g/dL (1.7-4.1); Glucose 80 mg/dL (70-100); HEMOLYSIS < 15 (0-50); Sodium 137 mmol/L (137-145)
[2021-02-20 15:20] VITALS: BP 144/60; PULSE 103; O2SAT 100
[2021-02-20 16:05] VITALS: BP 137/85; PULSE 88; RESP 18; TEMP 36.6; O2SAT 100
[2021-02-20 16:15] VITALS: BMI 44.1
[2021-02-20] MEDS: HYDROMORPHONE 0.5 MG INJ 1 MG IV ×3 (16:28→21:28)
[2021-02-20] MEDS: SODIUM CHLORIDE 0.9% 1,000 ML 125 ML IV (16:29)
[2021-02-20] MEDS: OXYCODONE IR 10 MG TABLET PO ×2 (17:34→22:36)
[2021-02-20 19:32] VITALS: BP 118/60; PULSE 84; RESP 17; TEMP 36.3; O2SAT 98
[2021-02-20] MEDS: PROMETHAZINE 25 MG TABLET PO (20:18)
[2021-02-20] MEDS: AMPICILLIN/SULBACTAM 3 GM 3 GM in SODIUM CHLORIDE 0.9% 100 ML IV (20:42)
[2021-02-20 22:20] VITALS: TEMP 37.6
[2021-02-20 23:50] VITALS: BP 135/77; PULSE 96; RESP 18; TEMP 36.5; O2SAT 100
[2021-02-21] VITALS (10 sets, daily range): BP systolic 98–138; BP diastolic 59–87; PULSE 85–102; RESP 11–20; TEMP 35.8–37.2; O2SAT 96–100; BMI 44.1
--- NOTE | 2021-02-21 00:01 | PC.NURSE ---
Assumed pt's care @ 1999. Pt vomiting and was medicated as per emar. When reassessed reports nausea/vomiting improved and requests tea to sip. This was provided. Pt reports iv dilaudid provides good pain relief but does request oxycodone when available to manage pain to breast. Continuous pulse oximeter in place. Pt able to position self independently in bed. Will continue to monitor and observe for pain relief and relief of nausea.
[2021-02-21] MEDS: AMPICILLIN/SULBACTAM 3 GM 3 GM in SODIUM CHLORIDE 0.9% 100 ML IV ×2 (01:10→08:17)
[2021-02-21] MEDS: SODIUM CHLORIDE 0.9% 1,000 ML 125 ML IV (01:10)
[2021-02-21] MEDS: HYDROMORPHONE 0.5 MG INJ 1 MG IV ×3 (01:11→10:37)
[2021-02-21] MEDS: ONDANSETRON 4 MG/2 ML INJ IV ×2 (01:11→09:15)
[2021-02-21] MEDS: OXYCODONE IR 10 MG TABLET PO ×2 (03:52→09:13)
--- NOTE | 2021-02-21 07:16 | P.HP_ITS ---
History of Present Illness History of Present Illness Date Patient Seen: 02/21/21 Time Patient Seen: 07:18 Chief complaint: Infection in Rt Breast, Sent From Dr Chavez: Patient is a 31-year-old 2 para 0 who was seen 10 days ago in the office for a small superficial skin lesion. She was treated with topical antibiotic ointment. She reports that the day after the appointment things got worse and she went to see her primary care provider, Dr. Sarah, who has prescribed 2 rounds of antibiotics. The first 1 was clindamycin, the second 1 was Bactrim. The patient presented to the emergency department last night as the pain was getting worse in the right breast. She reports that she had a fever at home. Some chills. Patient History Medical History Abnormal Pap smear of cervix (2013) Acne (2006) Ankle pain (2014) Breast abscess Breast infection in female Chronic headaches (2007) Dyslipidemia Eczema (1999) Endometriosis (2007) Gastric ulcer (2015) Herpes (2014) History of heavy periods (2005) HPV (human papilloma virus) infection (2013) IBS (irritable bowel syndrome) Irregular menstrual cycle (~2005) Learning disability Migraines (2007) Obesity Ovarian cyst (2007) Painful menstrual periods (2003) POTS (postural orthostatic tachycardia syndrome) (~2017) Shoulder pain (~2017) Surgical History Anesthesia History of ankle surgery History of laparoscopy (10/27/18) History of orthopedic surgery (07/16/15) History of shoulder surgery (~01/25/20) History of tonsillectomy (06/2010) S/P laparoscopic procedure (~05/28/19) S/P laparoscopy (10/26/18) Status post appendectomy (01/2008) Status post laparoscopy (2007) Status post laparoscopy (2009) Status post laparoscopy (07/19/14) Status post ovarian cystectomy (2007) Family & Social History Family History Grandfather Age: 84 Colon cancer Grandmother Age: 83 Scoliosis Grandfather Lung cancer Mother Oral cancer Anxiety Father Cancer Hypertension ADHD Sister History of bipolar disorder Social History: household members spouse Prior Living Arrangements House Safety & Behavioral: Feels Safe in Current Yes Environment Been Physically Hurt or No Threatened By a Person Suicidal Ideation Description None Suicide Plan Description No Plan Tobacco & Substance use: Smoking Status Never smoker alcohol intake current alcohol intake frequency holiday/special occasion Substance Use Type does not use Meds Home Medications and Allergies Home Medications Medication Instructions Recorded Confirmed Type etonogestrel 68 mg subdermal 68 mg SUBDERMAL USEASDIRECTD 09/18/20 02/21/21 His tory implant (Nexplanon) naproxen 500 mg tablet 500 mg PO BID 09/18/20 02/20/21 History ondansetron 4 mg disintegrating 4 mg PO TID-QID PRN #30 tab 11/26/20 02/20/21 Rx tablet eluxadoline 100 mg tablet (Viberzi) 100 mg PO BID #180 tab 12/12/20 02/20/21 Rx dicyclomine 20 mg tablet 20 mg PO QID PRN #60 tab 12/16/20 02/20/21 Rx ergocalciferol (vitamin D2) 1,250 1,250 mcg PO QWEEK #12 cap 12/16/20 02/20/21 Rx mcg (50,000 unit) capsule baclofen 10 mg tablet 10 mg PO TID PRN #30 tab 12/31/20 02/20/21 Rx clonidine HCl 0.1 mg tablet 0.1 mg PO DAILY tab 01/07/21 02/20/21 History diphenoxylate-atropine 2.5 1 tab PO QID PRN #60 tab 02/06/21 02/20/21 Rx mg-0.025 mg tablet (Lomotil) CMP Valium Vaginal suppositories 10 mg VAGINAL BID #20 tab 02/11/21 02/20/21 Rx promethazine 25 mg tablet 25 mg PO Q6H PRN #20 tab 02/11/21 02/20/21 Rx valacyclovir 500 mg tablet 500 mg PO DAILY PRN #30 tab 02/11/21 02/20/21 Rx (Valtrex) oxycodone 10 mg tablet 10 mg PO BID PRN #14 tab 02/18/21 02/20/21 Rx sulfamethoxazole 800 2 tab PO BID #28 tab 02/18/21 02/20/21 Rx mg-trimethoprim 160 mg tablet Allergies Allergy/AdvReac Type Severity Reaction Status Date / Time azithromycin [AZITHROMYCIN] Allergy Severe rash/throat Verified 02/20/21 09:29 swelling topiramate [TOPIRAMATE] Allergy Intermediate Rash Verified 02/20/21 09:29 codeine [CODEINE] AdvReac Severe Heartburn Verified 02/20/21 09:29 tramadol [TRAMADOL] AdvReac Intermediate Vomiting Verified 02/20/21 09:29 Exam Vital Signs (past 8 hours): - 02/20/21 23:50 02/21/21 03:22 Temperature 97.7 F 99.0 F Pulse Rate 96 H 89 Respiratory Rate 18 16 Blood Pressure 135/77 104/59 L Pulse Oximetry 100 98 Oxygen Delivery Method Room Air Oxygen Flow Rate 0 Narrative Exam Narrative: Generally: Patient lying in bed, no acute distress Breasts: Symmetric. On the right breast there is a 4 mm x 4 mm open area. There is erythema surrounding this open area. There is no fluctuance. The black line around the erythematous area that was drawn last evening shows that the erythema is markedly improved today. There are some palpable lymph nodes in the right axilla. Lungs: Clear to auscultation bilaterally Cardiovascular: Regular rate and rhythm Abdomen: Soft, nontender. Well-healed laparoscopy scars. Extremities: Negative Homans, no edema A breast ultrasound was done in the emergency department which was consistent with mastitis. There were 2 small hypoechoic areas that might be dilated ducts versus the start of small abscesses. Objective Labs Result Diagrams: 02/20/21 13:38 02/20/21 13:38 Labs: Laboratory Results - last 24 hr 02/20/21 02/20/21 02/20/21 12:20 13:38 13:38 WBC 7.5 RBC 3.81 L Hgb 11.2 L Hct 32.8 L MCV 85.9 MCH 29.4 MCHC 34.3 RDW 12.9 Plt Count 306 Neut % (Auto) 62.7 Lymph % (Auto) 24.5 L [place] % (Auto) 9.5 Eos % (Auto) 2.7 Baso % (Auto) 0.6 Neut # (Auto) 4700 Lymph # (Auto) 1800 [place] # (Auto) 700 Eos # (Auto) 200 Baso # (Auto) 0 Sodium 137 Potassium 4.0 Chloride 112 H Carbon Dioxide 21 L BUN 12 Creatinine 0.70 Estimated GFR > 60.0 BUN/Creatinine Ratio 17.1 Glucose 80 Lactate Calcium 8.1 L Total Bilirubin 0.6 AST 27 ALT 24 Alkaline Phosphatase 73 Total Protein 6.0 L Albumin 3.2 L Globulin 2.8 Albumin/Globulin Ratio 1.1 SARS-CoV-2 (PCR) Negative 02/20/21 13:38 WBC RBC Hgb Hct MCV MCH MCHC RDW Plt Count Neut % (Auto) Lymph % (Auto) [place] % (Auto) Eos % (Auto) Baso % (Auto) Neut # (Auto) Lymph # (Auto) [place] # (Auto) Eos # (Auto) Baso # (Auto) Sodium Potassium Chloride Carbon Dioxide BUN Creatinine Estimated GFR BUN/Creatinine Ratio Glucose Lactate 0.6 L Calcium Total Bilirubin AST ALT Alkaline Phosphatase Total Protein Albumin Globulin Albumin/Globulin Ratio SARS-CoV-2 (PCR) Assessment & Plan Assessment & Plan narrative: Assessment: 31-year-old 2 para 0 with a right mastitis Possible beginnings of small abscesses Plan: Continue Unasyn IV Surgery consult COVID-19 COVID-19 status: Negative Result date/Date tested (Pos, Neg/Pending): 02/20/21 Time Spent With Patient Time with patient: 15-24 minutes
--- NOTE | 2021-02-21 09:13 | PM.CN ---
History of Present Illness Consult details Date Patient Seen: 02/21/21 Time Patient Seen: 09:13 Chief complaint: Infection in Rt Breast, Sent From Reason for consult: right breast infection Requesting provider: Khushbu Saldivar Narrative: Right breast mastitis beginning with a scratch. Treated originally with topical and subsequently 2 rounds or oral antibiotics. remains tender, swollen and red. Meds Home Medications and Allergies Home Medications Medication Instructions Recorded Confirmed Type etonogestrel 68 mg subdermal 68 mg SUBDERMAL USEASDIRECTD 09/18/20 02/21/21 History implant (Nexplanon) naproxen 500 mg tablet 500 mg PO BID 09/18/20 02/20/21 History ondansetron 4 mg disintegrating 4 mg PO TID-QID PRN #30 tab 11/26/20 02/20/21 Rx tablet eluxadoline 100 mg tablet (Viberzi) 100 mg PO BID #180 tab 12/12/20 02/20/21 Rx dicyclomine 20 mg tablet 20 mg PO QID PRN #60 tab 12/16/20 02/20/21 Rx ergocalciferol (vitamin D2) 1,250 1,250 mcg PO QWEEK #12 cap 12/16/20 02/20/21 Rx mcg (50,000 unit) capsule baclofen 10 mg tablet 10 mg PO TID PRN #30 tab 12/31/20 02/20/21 Rx clonidine HCl 0.1 mg tablet 0.1 mg PO DAILY tab 01/07/21 02/20/21 History diphenoxylate-atropine 2.5 1 tab PO QID PRN #60 tab 02/06/21 02/20/21 Rx mg-0.025 mg tablet (Lomotil) CMP Valium Vaginal suppositories 10 mg VAGINAL BID #20 tab 02/11/21 02/20/21 Rx promethazine 25 mg tablet 25 mg PO Q6H PRN #20 tab 02/11/21 02/20/21 Rx valacyclovir 500 mg tablet 500 mg PO DAILY PRN #30 tab 02/11/21 02/20/21 Rx (Valtrex) oxycodone 10 mg tablet 10 mg PO BID PRN #14 tab 02/18/21 02/20/21 Rx sulfamethoxazole 800 2 tab PO BID #28 tab 02/18/21 02/20/21 Rx mg-trimethoprim 160 mg tablet Allergies Allergy/AdvReac Type Severity Reaction Status Date / Time azithromycin [AZITHROMYCIN] Allergy Severe rash/throat Verified 02/20/21 09:29 swelling topiramate [TOPIRAMATE] Allergy Intermediate Rash Verified 02/20/21 09:29 codeine [CODEINE] AdvReac Severe Heartburn Verified 02/20/21 09:29 tramadol [TRAMADOL] AdvReac Intermediate Vomiting Verified 02/20/21 09:29 Review of Systems Review of Systems ROS: Yes All systems reviewed with the patient and are negative except as otherwise documented Exam Vital Signs (past 8 hours): - 02/21/21 03:22 02/21/21 08:00 Temperature 99.0 F 97.6 F Pulse Rate 89 97 H Respiratory Rate 16 18 Blood Pressure 104/59 L 138/87 Pulse Oximetry 98 98 Oxygen Delivery Method Room Air Oxygen Flow Rate 0 Const General: cooperative and comfortable HENMT Head: normal to inspection and atraumatic Eyes Sclera: sclerae normal Neck Neck: trachea midline Chest Breast inspection: Other (right breast with lower outer quadrant redness that abuts the aerola. ) Other: tender to palpation. fullness at center of erythema. to tender to do deep palpation. Resp Effort & Inspection: normal respiratory effort and able to speak in complete sentences Cardio Rate: regular rate Rhythm: regular rhythm GI Inspection: normal to inspection Palpation: soft Skin Trauma: no lacerations or abrasions Other: wounds as above Neuro General: patient alert and patient oriented x3 Cognition: normal cognition Psych Appearance: grossly normal Objective ECG Impression: I am aware of the US showing no fluid collection Labs Result Diagrams: 02/20/21 13:38 02/20/21 13:38 Labs: Laboratory Results - last 24 hr 02/20/21 02/20/21 02/20/21 12:20 13:38 13:38 WBC 7.5 RBC 3.81 L Hgb 11.2 L Hct 32.8 L MCV 85.9 MCH 29.4 MCHC 34.3 RDW 12.9 Plt Count 306 Neut % (Auto) 62.7 Lymph % (Auto) 24.5 L [place] % (Auto) 9.5 Eos % (Auto) 2.7 Baso % (Auto) 0.6 Neut # (Auto) 4700 Lymph # (Auto) 1800 [place] # (Auto) 700 Eos # (Auto) 200 Baso # (Auto) 0 Sodium 137 Potassium 4.0 Chloride 112 H Carbon Dioxide 21 L BUN 12 Creatinine 0.70 Estimated GFR > 60.0 BUN/Creatinine Ratio 17.1 Glucose 80 Lactate Calcium 8.1 L Total Bilirubin 0.6 AST 27 ALT 24 Alkaline Phosphatase 73 Total Protein 6.0 L Albumin 3.2 L Globulin 2.8 Albumin/Globulin Ratio 1.1 SARS-CoV-2 (PCR) Negative 02/20/21 13:38 WBC RBC Hgb Hct MCV MCH MCHC RDW Plt Count Neut % (Auto) Lymph % (Auto) [place] % (Auto) Eos % (Auto) Baso % (Auto) Neut # (Auto) Lymph # (Auto) [place] # (Auto) Eos # (Auto) Baso # (Auto) Sodium Potassium Chloride Carbon Dioxide BUN Creatinine Estimated GFR BUN/Creatinine Ratio Glucose Lactate 0.6 L Calcium Total Bilirubin AST ALT Alkaline Phosphatase Total Protein Albumin Globulin Albumin/Globulin Ratio SARS-CoV-2 (PCR) Assessment & Plan Assessment & Plan narrative: Right breast abscess. Plan is OR for I and D. COVID-19 COVID-19 status: Negative Time Spent With Patient Time with patient: 15-24 minutes
--- NOTE | 2021-02-21 11:14 | SUR.OPER ---
Supine on padded OR bed, head on pillow, arms secured on padded arm boards at <90 degrees abduction, legs uncrossed, safety belt at thigh, tape over blanket over lower legs.
[2021-02-21] MEDS: SCOPOLAMINE 1 PATCH TOP (11:30)
[2021-02-21] MEDS: BUPIVACAINE 0.25% W/ EPI 30 ML VIAL INJ (11:30)
--- NOTE | 2021-02-21 11:43 | PM.OP.1 ---
Operative Date/Time/Diagnoses Date of procedure: 02/21/21 Time of procedure: 11:43 Pre-op diagnosis: Right breast infection Post-op diagnosis: same Procedure & Clinicians Procedure: I and D right breast Same procedure as scheduled: Yes Indications: right breast infection Surgeon: Aggie Mas Click Yes if Unassisted: Yes Anesthesia Type: General Operative Notes Findings: No zhao pus. Golf ball size inflamed area. with a cavity Specimen(s): none sent (culture) Procedure in detail: Preop diagnosis: Right breast infection Postop diagnosis: Same Procedure: I and D of right breast Surgeon: Jes andrade MD Anesthetic: General with LMA intubation and local. Findings: No zhao pus. A small cavity consistent with previous abscess. Golf ball-sized inflammatory area in the right lower lateral breast Procedure: Patient placed in a supine position. Prepped and draped sterile fashion to expose her right breast. Local anesthetic was injected. A 15 blade was used to incise the breast down into this subcutaneous tissue and then into the breast itself. As discussed above a small cavity was identified. No purulent drainage. With the induration measuring the size of a golf ball noted. Iodoform gauze was placed into the incision site down to the cavity as a wick. Dry dressings were placed, patient was awakened, extubated, taken to recovery room in stable condition. Needle, instrument, sponge counts were correct. Blood loss: 5 mL Specimen: Culture Complications: none Post-operative Condition: stable Disposition: PACU
[2021-02-21] MEDS: OXYCODONE IR 5 MG TABLET PO (12:03)
--- NOTE | 2021-02-21 12:13 | SUR.PHASEI ---
Pt awoke on own, patent airway, self maintained. Dressing with shadow drainage, now encircled. Medicated with oxycodone after applesauce tolerated. Report called to EUFEMIA Middleton. Left unit in stable condition.
--- NOTE | 2021-02-21 12:24 | PC.NURSE ---
Patient return from OR, A/O x 3, tolerating ice chips and ready to advance diet. Patient denies pain, endorses tenderness. R breast dsg intact, sanguineous drainage outlined. VSS. 98% on RA. IV patent. Fluids infusing per order. SCD's on. Patient prefers own clothes, getting dressed at this time with husbands assistance. Call light in reach. Will continue to monitor.
--- NOTE | 2021-02-21 12:28 | PC.NURSE ---
Addendum entered by Lola Heath R.N. 02/21/21 15:14: Patient and given discharge information regarding s/s of worsening condition, new Oxy prescription, wound care and dressing change and f/u call with Dr. Saldivar, patient verbalized understanding. Patient's Allyvn changed and extra dressing sent with patient. Patient's LUE midline removed. Patient tolerated. Patient discharged via wheelchair Original Note: Patient return from OR, A/O x 3, tolerating ice chips and ready to advance diet. Patient denies pain, endorses tenderness. R breast dsg intact, sanguineous drainage outlined. VSS. 98% on RA. IV patent. SCD's on. Patient prefers own clothes, getting dressed at this time with husbands assistance. Call light in reach. Will continue to monitor.
--- NOTE | 2021-02-21 14:29 | CM.IDA ---
Addendum entered by JEANA Cosby 02/21/21 14:34: In addition: Will need to follow in the case patient requires ongoing IV abx vs po abx Original Note: Initial DCP Assessment Note Pt is a 31 yo female, resident of [place], patient arrives w/an infection in her Rt breast, taken to the OR today by Dr Mas for I+D According to Dr Mas's post operative note- Findings: No zhao pus. A small cavity consistent with previous abscess. Golf ball-sized inflammatory area in the right lower lateral breast Culture taken. PCP: Salvador Gerardo Payer: Prime Patient off the floor, in the OR, at time this HOUSE DIRECTOR attempted visit. According to RN , patient arrives safely back on the AC floor, supportive spouse at bedside. No needs expected from DC planning team although will remain available in case this changes today. JEANA Cosby
== END 2021-02-21 15:12 | disposition home or self-care (01) | DRG 585 ==
LOC: ED 14:49 → AC 15:06
PROVIDERS: Surgery; Admitting Provider Obstetrics & Gynecology; Emergency Provider Emergency Medicine; Family Provider Nurse Practitioner; PCP Registered Nurse Diabetes Educator; Referring Provider Emergency Medicine; Visit Provider Obstetrics & Gynecology
PROC: (CPT 10060; principal; 2021-02-21 13:00)
DX: N61.1 Abscess of the breast and nipple (principal); Z20.822 Contact with and (suspected) exposure to COVID-19; I49.8 Other specified cardiac arrhythmias; K58.9 Irritable bowel syndrome, unspecified
CPT/HCPCS: 10060; 36415; 80053; 81003; 83605; 85025; 87040; 87070; 87205; 87635; 96361; 96365; 96366; 96375; 96376; 99284; C9803; G0378; J0295; J1100; J1170; J2250; J2405; J2704; J3010

== ENCOUNTER → 2021-04-22 15:14 | Outpatient (CLI) | payer OTHER, SELFPAY ==
[2021-02-23 15:07] VITALS: BMI 44.1
--- NOTE | 2021-04-22 18:28 | PC.NURSE ---
Asked by MRI to place a line in patient as she has said that they have to use ultrasound on her for access. I attempted 3 times, once I was able to get in the basilic vein on the left side but my catheter was too short. when she elevated her arm it dislodged. Tried once on right arm and twice in her left arm. Pt chose to reschedule so that she will have her antianxiety meds before hand and will schedule a slot with DI nurse for line placement prior to procedure.
== END ==
PROVIDERS: Family Provider Nurse Practitioner; PCP Family Medicine; Referring Provider Surgery; Visit Provider Surgery
DX: N61.0 Mastitis without abscess (principal); R23.4 Changes in skin texture; Z53.8 Procedure and treatment not carried out for other reasons

== ENCOUNTER → 2021-04-29 07:45 | Outpatient (CLI) | payer OTHER, SELFPAY ==
[2021-02-23 15:07] VITALS: BMI 44.1
--- NOTE | 2021-04-29 07:46 | DI.MRI.S_ITS ---
BREAST MRI OF BOTH BREASTS: 04/29/2021 CLINICAL: Breast mass, bloody discharge, family history breast cancer. Comparison is made to exams dated: 02/20/2021 [facility], 02/16/2021 mammogram, and 07/09/2019 mammogram - [facility]. TECHNIQUE: The patient was placed prone in a dedicated breast imaging coil. Precontrast axial STIR and 3D FLASH without fat saturation sequences were obtained. Both before and after bolus injection of contrast, sequential 1-minute axial 3D FLASH with fat saturation sequences for 3 time points, with subtraction images and maximum intensity projections (MIP's) generated. Delayed sagittal FLASH images with fat saturation were also obtained. Computer-aided detection, including computer algorithm analysis of MRI image data for lesion detection and characterization, pharmacokinetic analysis, with further physician review for interpretation, was performed. Right breast: There is edematous T2 hyperintense thickening of the fibroglandular parenchyma in the central and medial right breast, with lesser involvement of the lateral breast tissue. This fibroglandular tissue demonstrate corresponding increased enhancement when compared with the left breast. There is a non organized fluid collection in the central/retroareolar and medial breast anteriorly measuring approximately 2.5 x 4.3 x 2.7 centimeters (series 14, image 75 and series 18, image 98). There is some peripheral enhancement adjacent to this fluid collection, most of which is thought to represent fibroglandular parenchyma, although some of the enhancement may represent early formation of an abscess wall. The nipple areola complex is normal. No significant skin thickening or evidence of neovascularity. There is no suspicious masslike or non masslike enhancement. No threshold enlarged or suspicious lymph node in the internal mammary or axillary stations. Left breast: No mass or suspicious enhancement in the left breast. No internal mammary or axillary lymphadenopathy. Nipple areola complex is normal. No skin thickening or neovascularity identified. IMPRESSION: PROBABLY BENIGN Findings of right breast phlegmonous change and possible developing abscess with background mastitis. After appropraite therapy, a follow-up ultrasound in 3 months is recommended. There is no definite evidence of malignancy, though it should be noted that the fibroglandular changes related to mastitits decrease the sensitivity for neoplasm. This exam was interpreted at Station ID: [id number]. Electronically Signed By: Facundo Onofre M.D. jr/:04/30/2021 08:43:41 Entry: - 04/30/2021 08:51:09 ACR BI-RADS Category 3: Probably benign [id number]
--- NOTE | 2021-04-29 08:19 | PC.NURSE ---
Placed midline catheter in patients lower left basilic vein. One attempt, Used powerglide pro Lot number [id number]. Flushes and withdraws blood without difficulty, also flushed and w/d blood while arms were extended as that is the position she will be in for MRI exam. Pt tolerated procedure well. She reports also that she took her antianxiety medication prior to coming to the hospital this am.
== END ==
PROVIDERS: Family Provider Nurse Practitioner; PCP Family Medicine; Referring Provider Surgery; Visit Provider Surgery
DX: N61.0 Mastitis without abscess (principal); N64.52 Nipple discharge; R23.4 Changes in skin texture; Z80.3 Family history of malignant neoplasm of breast
CPT/HCPCS: 77049; A9579

== ENCOUNTER → 2021-05-05 13:57 | Outpatient (CLI) | payer OTHER, SELFPAY ==
[2021-02-23 15:07] VITALS: BMI 44.1
--- NOTE | 2021-05-05 13:58 | DI.US.S_ITS ---
LIMITED ULTRASOUND OF RIGHT BREAST: 05/05/2021 CLINICAL: Hx mastitis, surgery -; worsening pain, redness; antibiotics, increasing pain, edema. Pre-op. No history . Comparison is made to exams dated: 04/29/2021 breast MRI, 04/29/2021 breast MRI, 02/20/2021 ultrasound [facility], 02/16/2021 mammogram - [facility] [place], 02/12/2021 ultrasound - [facility], and 07/09/2019 mammogram - [facility] [place]. Ultrasound of the right breast 9-11 o'clock region was performed. There is a 4.6 cm x 4 cm x 4 cm irregular abscess with a thickened wall in the right breast at 9 o'clock in the retroareolar region. This irregular abscess is of mixed echogenicity with an echogenic boundary and posterior acoustic enhancement. This correlates with area of clinical concern. Color flow imaging demonstrates that there is increased vascularity. IMPRESSION: PROBABLY BENIGN There is an approximately 4.6 cm x 4 cm x 4 cm abscess in the right breast. A follow-up ultrasound in 1 month after incision/drainage and appropraite therapy is recommended to ensure complete resolution and further help exclude an underlying neoplasm (considered unlikely given the recent MRI findings). This exam was interpreted at Station ID: [id number]. Electronically Signed By: Facundo Onofre M.D. jr/:05/05/2021 14:43:31 Ultrasound BI-RADS: 3 Probably benign
== END ==
PROVIDERS: Family Provider Nurse Practitioner; PCP Family Medicine; Referring Provider Surgery; Visit Provider Surgery
DX: N61.1 Abscess of the breast and nipple (principal); G89.18 Other acute postprocedural pain; Z01.812 Encounter for preprocedural laboratory examination; Z20.822 Contact with and (suspected) exposure to COVID-19; E66.9 Obesity, unspecified; L68.0 Hirsutism; Z68.41 Body mass index [BMI] 40.0-44.9, adult
CPT/HCPCS: 36415; 76642; 80053; 82627; 83001; 83036; 83498; 84146; 84403; 85025; 87635; 99214

== ENCOUNTER → 2021-05-05 14:47 | Outpatient (CLI) | payer OTHER, SELFPAY ==
[2021-02-23 15:07] VITALS: BMI 44.1
[2021-05-05 15:32] LABS: Add Manual Diff / Slide Review NO; Basophils Absolute Auto 100 /uL (0-100); Basophils Percent Auto 0.7 % (0-2); Eosinophils Absolute Auto 100 /uL (0-450); Hematocrit 36.3 % (36-46); Hemoglobin 12.2 g/dL (12.0-16.0); Lymphocytes Absolute Auto 2300 /uL (1100-4500); Lymphocytes Percent Auto 18.7 % (25-40); Mean Corpuscular HGB Conc 33.4 % (30-36); Mean Corpuscular Volume 83.7 fL (80-100); Monocytes Absolute Auto 800 /uL (0-900); Monocytes Percent Auto 6.3 % (3-14); Neutrophils Absolute Auto 9200 /uL (1500-7000); Neutrophils Percent Auto 73.3 % (50-75); Platelet Count 483 X10^3/uL (150-400); Red Blood Cell Count 4.34 X10^6/uL (4.0-5.2); Red Cell Distribution Width 12.4 % (11.6-14.8); White Blood Cell Count 12.5 X10^3/uL (4.5-11.0)
[2021-05-05 16:07] LABS: Alanine Aminotransferase 13 IU/L (<35); Albumin Globulin Ratio 1.5 (1.0-2.8); Alkaline Phosphatase 90 U/L (38-126); Aspartate Aminotransferase 19 IU/L (14-36); BUN Creatinine Ratio 21.7 (6-22); Bilirubin Total 0.4 mg/dL (0.2-1.3); Blood Urea Nitrogen 13 mg/dL (7-17); Calcium 9.6 mg/dL (8.4-10.2); Carbon Dioxide 27 mmol/L (22-32); Chloride 101 mmol/L (98-107); Estimated Glomerular Filt Rate > 60.0 mL/min (>60); Globulin 2.7 g/dL (1.7-4.1); Glucose 88 mg/dL (70-100); HEMOLYSIS < 15 (0-50); Potassium 4.5 mmol/L (3.4-5.1); Sodium 137 mmol/L (137-145); Total Protein 6.7 g/dL (6.3-8.2)
[2021-05-05 16:12] LABS: Hemoglobin A1C% w Est Avg Glu 5.1 % (4.0-6.0)
[2021-05-05 16:18] LABS: COVID19 -Nasal RAPID Negative (Negative)
[2021-05-05 16:24] LABS: Prolactin 14.5 ng/mL (3.0-18.6)
[2021-05-05 16:40] LABS: Testosterone 20.3 ng/dL (5.71-77.0)
== END ==
PROVIDERS: Registered Nurse Diabetes Educator; Family Provider Nurse Practitioner; PCP Family Medicine; Referring Provider Surgery; Visit Provider Surgery
DX: Z01.812 Encounter for preprocedural laboratory examination (principal); Z20.822 Contact with and (suspected) exposure to COVID-19; G89.18 Other acute postprocedural pain; E66.9 Obesity, unspecified; L68.0 Hirsutism
CPT/HCPCS: 36415; 80053; 82627; 83001; 83036; 83498; 84146; 84403; 85025; 87635

== ENCOUNTER 2021-05-06 07:35 | Day surgery (SDC) | payer OTHER, SELFPAY ==
[2021-02-23 15:07] VITALS: BMI 44.1
[2021-05-06] VITALS (7 sets, daily range): BP systolic 109–119; BP diastolic 65–81; PULSE 95–113; RESP 14–20; TEMP 36.4–37; O2SAT 95–97; BMI 41.9
--- NOTE | 2021-05-06 | PATH_ITS ---
[facility] Accession Number: [id number] . 01 Material submitted: . PART A: breast - RIGHT BREAST SKIN PART B: breast - RIGHT BREAST SKIN . 01 Clinical history: . I / D BREAST ABSCESS . 01 Diagnosis: A. Skin, Right Breast, Excision: Epidermal ulceration and severe chronic and acute suppurative inflammation, consistent with abscess. . B. Skin, Right Breast, Biopsy: Fibrosis and mixed perivascular chronic and acute inflammation. [facility] 05/11/2021 1720 Local . 01 Comment: The findings seen in specimen B are nonspecific and may represent changes adjacent to an abscess. . As part of ongoing manager of quality, this case is also reviewed by Dr. Richy Hoskins, who concurs with the given interpretation. . 01 Electronically signed: . Aggie Morrison MD, Pathologist NPI- [id number] . 01 Gross description: . A. Received in formalin, labeled with the patient's name and right breast skin is a 2.5 x 1.6 x 0.5 cm pink-unger skin ellipse with a 1.7 cm linear central disruption. The disruption is inked blue and the remaining resection margin inked black. The specimen is serially sectioned and entirely submitted, including both black and blue ink in each piece. . Sections: A1-3: Five pieces each. A4: Three pieces. . B. Received in formalin, labeled with the patient's name and right breast skin punch biopsies are three pale unger punches of skin, smallest-0.3 x 0.5 cm, largest-0.3 x 0.8 cm. All three fragments are inked blue and submitted intact and entirely. . Sections: B1: Three pieces. ([id number]) /MRV 05/07/[address] [place] [address] . 01 Pathologist provided ICD-10: N61.1 . 01 CPT . 505651, [id number] Performed at: 01 [facility] [address] [place] [address] [id number] MD Chucho Hernandez MD Phone: [phone]
[2021-05-06] MEDS: LACTATED RINGERS 1,000 ML 42 ML IV (08:14)
--- NOTE | 2021-05-06 08:38 | PM.PREOP ---
Pre-operative Note COVID-19 COVID-19 status: Negative Interval Note History & Physical reviewed/Exam performed by Physician: Yes Changes to H&P: No ASA Class (for procedural sedation): II
--- NOTE | 2021-05-06 09:04 | SUR.OPER ---
Supine on padded OR bed, head on pillow, arms secured on padded arm boards at <90 degrees abduction, legs uncrossed, safety belt at thigh, tape over blanket over lower legs.
[2021-05-06] MEDS: BUPIVACAINE 0.5% (PF) VIAL 30 ML INJ (09:08)
[2021-05-06] MEDS: EPINEPHrine 1 MG/ML 0.15 MG INJ (09:09)
--- NOTE | 2021-05-06 09:28 | P.OP_ITS ---
Operative Date/Time/Diagnoses Date of procedure: 05/06/21 Pre-op diagnosis: Right breast abscess Post-op diagnosis: same Procedure & Clinicians Procedure: Incision and drainage of right breast abscess and right breast skin punch biopsy Same procedure as scheduled: Yes Indications: Recurrent right breast abscess Surgeon: Scooter Hood Click Yes if Unassisted: Yes Operative Notes Findings: Large purulent fluid collection of the central breast Estimated Blood Loss (mL): 10 Procedure in detail: The patient was brought to the operating room, placed on the table in the supine position with the arms out. Anesthesia was induced with LMA. A time-out was performed. First, 5-10 mL of Marcaine were injected into the skin around the old surgical scar where the abscess had partially drained. Next, a 15 blade scalpel used to extend the opening to about 2 cm. Then, wound cultures were taken through the opening in the skin of the deep portion of the wound cavity. Next, an ellipse of skin measuring approximately 3 cm was removed from the area of the old surgical site. This was sent as ?skin?. Next, the punch was used to remove 3 small cores of skin from the breast lateral to the incision. These were sent separately as punch biopsies of the right breast. Next a 4-0 Monocryl was used to close each of the punch biopsy incisions for hemostasis. Then, saline was used to irrigate the abscess cavity. A finger was inserted into the abscess cavity to break up any loculations. Once the abscess cavity appeared clean the wound was packed with dry Kerlix gauze. Some 4x4s were placed over the wound and held in place with tape. The patient was then transferred to the [facility] and extubated. The spider was applied and the patient was brought to recovery. Post-operative Condition: stable Disposition: PACU
[2021-05-06] MEDS: ACETAMINOPHEN 325 MG TABLET 650 MG PO (09:47)
[2021-05-06] MEDS: OXYCODONE IR 5 MG TABLET PO ×2 (09:48→10:14)
== END 2021-05-06 10:31 | disposition home or self-care (01) ==
PROVIDERS: Family Provider Nurse Practitioner; PCP Family Medicine; Referring Provider Surgery; Visit Provider Surgery
PROC: (CPT 10140; principal; 2021-05-06 08:45)
DX: N61.1 Abscess of the breast and nipple (principal)
CPT/HCPCS: 10140; 11105 ×3; 11106; 87070; 87075; 87077; 87186; 87205; J0171; J1100; J2405; J2704; J3010

== ENCOUNTER → 2021-07-01 12:55 | Outpatient (CLI) | payer OTHER, SELFPAY ==
[2021-02-23 15:07] VITALS: BMI 44.1
--- NOTE | 2021-07-01 | DI.US.S_ITS ---
LIMITED ULTRASOUND OF RIGHT BREAST: 07/01/2021 CLINICAL: Patient returns today to evaluate a focal asymmetry in the right breast. Comparison is made to exams dated: 05/05/2021 ultrasound, 04/29/2021 breast MRI, 04/29/2021 breast MRI, 02/20/2021 ultrasound - [facility], 02/16/2021 mammogram - [facility], and 02/12/2021 ultrasound - [facility]. Color flow, real-time, and Doppler ultrasound of the right breast 10 o'clock region were performed. Pérez scale images of the real-time examination were reviewed. There is a benign 1 cm x 0.4 cm x 0.7 cm irregular abscess with a thickened wall in the right breast at 9 o'clock in the retroareolar region. This irregular abscess is of mixed echogenicity with an echogenic boundary and posterior acoustic enhancement. This correlates with area of clinical concern. Color flow imaging demonstrates that there is increased vascularity. IMPRESSION: BENIGN There is no sonographic evidence of malignancy. The 1 cm x 0.4 cm x 0.7 cm irregular abscess in the right breast is benign. This exam was interpreted at Station ID: [id number]. Electronically Signed By: Facundo Onofre M.D., jr/mauricio:07/01/2021 14:16:04 letter sent: Normal Exam Ultrasound BI-RADS: 2 Benign
== END ==
PROVIDERS: Family Provider Nurse Practitioner; PCP Family Medicine; Referring Provider Specialist; Visit Provider Obstetrics & Gynecology
DX: G89.18 Other acute postprocedural pain; N61.1 Abscess of the breast and nipple
CPT/HCPCS: 76642

== ENCOUNTER → 2021-08-12 08:02 | Outpatient (CLI) | payer OTHER, SELFPAY ==
[2021-02-23 15:07] VITALS: BMI 44.1
[2021-08-12 08:33] LABS: COVID19 -Nasal RAPID POSITIVE (Negative)
== END ==
PROVIDERS: Family Provider Nurse Practitioner; PCP Family Medicine; Referring Provider Physician Assistant; Visit Provider Physician Assistant
DX: U07.1 COVID-19 (principal)
CPT/HCPCS: 87635

== ENCOUNTER → 2021-10-01 15:01 | Outpatient (CLI) | payer OTHER, SELFPAY ==
[2021-10-01 13:13] VITALS: BMI 44.1
--- NOTE | 2021-10-01 15:01 | DI.US.S_ITS ---
LIMITED ULTRASOUND OF RIGHT BREAST: 10/01/2021 CLINICAL: Possible abscess. Comparison is made to exams dated: 09/17/2021 ultrasound, 09/17/2021 mammogram - [facility], 07/01/2021 ultrasound, 05/05/2021 ultrasound, 04/29/2021 breast MRI, and 04/29/2021 breast MRI - [facility]. Real-time ultrasound of the right breast 9-12 o'clock region was performed. Pérez scale images of the real-time examination were reviewed. Skin thickening is seen in the palpable area of interest in the right breast upper outer quadrant near the prior incision site. No focal fluid collection or abscess is seen. Previously seen fluid collection has resolved. Skin erythema noted at the time of the exam. IMPRESSION: BENIGN No abscess is seen in the right breast in the area of pain and erythema. There is no sonographic evidence of malignancy. This exam was interpreted at Station ID: [id number]. Electronically Signed By: Te Arnett M.D. ar/:10/01/2021 15:25:27 letter sent: Clinical Evaluation Ultrasound BI-RADS: 2 Benign
== END ==
PROVIDERS: Family Provider Family Medicine; PCP Family Medicine; Referring Provider Surgery; Visit Provider Surgery
DX: G89.18 Other acute postprocedural pain (principal); R23.4 Changes in skin texture
CPT/HCPCS: 76642; 99213

== ENCOUNTER → 2021-10-12 15:55 | Outpatient (CLI) | payer OTHER, SELFPAY ==
[2021-10-01 13:13] VITALS: BMI 44.1
[2021-10-12 17:01] LABS: Appearance Urine UA CLEAR; Bilirubin Urine UA NEGATIVE (NEGATIVE); Color Urine UA YELLOW; Glucose Urine UA NEGATIVE (Negative); Ketones Urine UA NEGATIVE (NEGATIVE); Leukocyte Esterase Urine UA NEGATIVE (NEGATIVE); Nitrite Urine UA NEGATIVE (Negative); Occult Blood Urine UA NEGATIVE (Negative); Protein Urine UA NEGATIVE (Negative); Specific Gravity Urine UA 1.015 (1.000-1.035); Urobilinogen Urine UA 0.2 E.U./dL (0.2)
[2021-10-12 17:33] LABS: Bacteria Urine None Seen; Culture Indicated Urine Cult Not Indicated; RBC Urine None Seen (0-5/HPF); WBC Urine None Seen (0-5/HPF)
[2021-10-12 18:08] LABS: HIV 1 & 2 Ab/Ag 4th Gen Combo NEGATIVE (NEGATIVE)
== END ==
PROVIDERS: Family Provider Family Medicine; PCP Family Medicine; Referring Provider Family Medicine; Visit Provider Family Medicine
DX: K58.0 Irritable bowel syndrome with diarrhea (principal); Z00.01 Encounter for general adult medical examination with abnormal findings
CPT/HCPCS: 36415; 81001; 87389

== ENCOUNTER → 2022-02-17 12:02 | Outpatient (ROUT) | payer SELFPAY ==
[2021-10-01 13:13] VITALS: BMI 44.1
[2022-02-17 12:04] LABS: Urine Drug Scr, Empl Non-NIDA See Separate Report
== END ==
PROVIDERS: Family Provider Family Medicine; PCP Family Medicine
DX: Z02.1 Encounter for pre-employment examination (principal)
CPT/HCPCS: 81099

== ENCOUNTER 2022-03-03 09:00 | Outpatient (RCR) | payer OTHER, SELFPAY ==
[2021-10-01 13:13] VITALS: BMI 44.1
--- NOTE | 2021-11-09 17:07 | PT.OIE ---
Current Diagnoses Stiffness of unspecified hip, not elsewhere classified (11/09/21) Pelvic and perineal pain (11/09/21) Past Medical History (Last Reviewed 08/12/21 @ 08:16 by Anju Caldwell PA-C) Abnormal Pap smear of cervix (2013) Acne (2007) Ankle pain (2014) Breast abscess Breast infection in female Chronic headaches (2007) Dyslipidemia Eczema (1999) Endometriosis (2007) Gastric ulcer (2015) Herpes (2014) History of ankle surgery History of heavy periods (2005) History of laparoscopy (10/27/18) History of orthopedic surgery (07/16/15) History of shoulder surgery (~01/25/20) HPV (human papilloma virus) infection (2013) IBS (irritable bowel syndrome) Irregular menstrual cycle (~2005) Learning disability Migraines (2007) Obesity Ovarian cyst (2007) Painful menstrual periods (2003) POTS (postural orthostatic tachycardia syndrome) (~2017) S/P laparoscopic procedure (~05/28/19) S/P laparoscopy (10/26/18) Shoulder pain (~2017) Past Surgical History (Last Reviewed 08/12/21 @ 08:16 by Anju Caldwell PA-C) Anesthesia History of ankle surgery History of laparoscopy (10/27/18) History of orthopedic surgery (07/16/15) History of shoulder surgery (~01/25/20) History of tonsillectomy (06/2010) S/P laparoscopic procedure (~05/28/19) S/P laparoscopy (10/26/18) Status post appendectomy (01/2008) Status post laparoscopy (2007) Status post laparoscopy (2009) Status post laparoscopy (07/19/14) Status post ovarian cystectomy (2007) Visit Care Team Role Provider Type Dax Mosley MD Family Provider Physician Primary Care Provider Specialty: Family Practice Address: [address] [place] [address], [id number] Email: [email or web address] Khushbu Sladivar MD Attending Provider Physician Referring Provider Specialty: Gynecology [employer] [facility] Address: [address] [place] [address], [id number] Email: [email or web address] Physical Therapy Initial Evaluation PT-OP-A Visit Information Start: 11/06/21 16:31 Freq: Status: Active Protocol: Document 11/09/21 14:32 LRN (Rec: 11/09/21 19:06 LRN [id number]) Out-Patient Physical Therapy Visit Information Visit Information Visit Type Initial Evaluation Visit Start Time 14:32 Visit Stop Time 15:21 Total Visit Minutes 54 Visit Number 1 Evaluation Information Evaluation Date 11/09/21 Precautions Precautions Currently dealing with breast abscess. Record review indicates PMH: Herpes, IBSD, Obesity (BMI 40. 6), endometriosis determined by laproscopy s/p ovarian cystectomy, abdominal pain, POTS in 2018, HPV infection 2013, cervical radiculopathy. Pt reports 3, Parity 0, miscarriages 3 before 1st trimester (~8-10 weeks). PT-OP-B Current Condition Start: 11/06/21 16:31 Freq: Status: Active Protocol: Document 11/09/21 14:32 LRN (Rec: 11/09/21 19:06 LRN [id number]) Current Condition History of Current Condition Onset Date 06/2021 Current Complaints Having PF spasms with no full relaxation. History of Current Condition Pelvic pain off/on several years. Recent flare up Jun 2022. Has had PT for PFP in [id number] in [place] for a couple weeks and was not beneficial with biofeedback treatments. Tried PT at [facility], but didn't feel it was improving in mid 2019. PT was aggrevating symptoms more than benefitting; therefore is deciding to try a different PT office. [facility] was horrendous after biofeedback and E-Stim internally due to pain. After E-Stim had to be knocked out and was given injections that helped with spasms. She also received internal manual work in mid [id number] and ex's. Has done self trigger point releases at home and is now too tender. Having more spasms. Sometimes changing positions helps. At work is having to stand more and is helping. Sitting creates spasms. 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 She has a couple episodes of diahrrea a day that is controllable. Has heating pad, uses ice and sometimes sex helps or it makes it worse . Prior Treatments and Tests Numerous diagnosic labs. Adenomyosis, endometriosis and 6-8 laproscopic surgeries ( 2018 or 2019 with last due to ovarian cysts). Hysterectomy, keeping both ovaries. Future Testing and Treatments Planned Testing for mastitis of the breast tissues. Treatment Goals Patient/Caregiver Goals Goal is to decrease spasms to manage it at home. Feels spasms occur daily up to 20 times daily, Her goal is 50% reducation. 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 No children. , trying to adopt. Functional Limitations- Mobility/Gait Squats increase spasms. 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 Currently dealing with breast abscess, BMI 40.6, endometriosis determined by laproscopy s/p ovarian cystectomy, 6-8 laproscopic surgeries, IBSD Records indicate abdominal pain. PT-OP-C Subjective Start: 11/06/21 16:31 Freq: Status: Active Protocol: Document 11/09/21 14:32 LRN (Rec: 11/09/21 19:06 LRN [id number]) Patient Questionnaires Pelvic Pain and Urgency/Frequency Patient Symptom Scale Pelvic Pain Score 20 OP-PT Pain Assessment Pain Assessment Grid Paper Pain Assessment Grid Completed Yes Location Across abdomen Pain Location Details Across abdomen at mid inguinal line. Intensity 9 Scale Used Numeric (0 - 10) Description Sharp,Shooting,Stabbing Description- Other Severityh of pian vaires Frequency Constant Variations/Patterns Lower abdomen above inguinal line, intense cramping, Pain Aggravating Factors Changing Position,Standing, Lifting Other Pain Aggravating Factors Weight lifting of lower body increases pain. PT-OP-H Neuro Start: 11/06/21 16:31 Freq: Status: Active Protocol: Document 11/09/21 14:32 LRN (Rec: 11/09/21 19:06 LRN [id number]) Sensation Evaluation Gross Sensation Sensation Description Hyperesthesia Comments Summary Comments Has sensation, hypersensitive due to increase in methyltrixate, and mherpes sympliex virus 2. PT-OP-I Pelvic Floor Start: 11/06/21 16:31 Freq: Status: Active Protocol: Document 11/09/21 14:32 LRN (Rec: 11/09/21 19:06 LRN [id number]) Pelvic Floor Assessment Pelvic Clock Pelvic Clock 12-3 Tenderness,Tightness Pelvic Clock 3-6 Tenderness,Tightness Pelvic Clock 6-9 Tenderness,Tightness Pelvic Clock 9-12 Tenderness,Tightness Pelvic Clock Other Pt indicates per intake form that she does not have the sensation that she needs to go to the toilet. Prolapse Cystocele Grade 2 Prolapse Comments Checked in supine Contraction Ability Voluntary Relaxation Absent Comments Pelvic Floor Comments Strength testing deferred due to Vaginal tightness & pain with internal palpation. When asked to do a PF contraction, no visible contraction is noted externally (no clitoral nod or anal wink). Pt denies constipation or uinary leakage. She notes sometimes she has diahrrea. PT-OP-J Posture/Palpation/Skin Start: 11/06/21 16:31 Freq: Status: Active Protocol: Document 11/09/21 14:32 LRN (Rec: 11/09/21 19:06 LRN [id number]) Posture Evaluation Position Standing Head/C-Spine Posture Forward Head T-Spine Posture Flattened L-Spine Posture Increased Lordosis Shoulder Posture (L) Elevated Arm Posture (L) Internally Rotated,(R) Internally Rotated Pelvis Posture Anteriorly Tilted Ankle/Foot Posture (R) Forefoot Adducted Comments Posture Comments R handed. R shoulder/breast low, wide stance, Dowagers hump, flat uppoer T/S with flexion apex T6-T7, mildly hyperextended at knees. Endomorphic body type (5' 6, 250#) PT-OP-K Range of Motion Start: 11/06/21 16:31 Freq: Status: Active Protocol: Document 11/09/21 14:32 LRN (Rec: 11/09/21 19:06 LRN [id number]) Lumbar Spine Range of Motion Lumbar Spine Active Degrees Testing Position Standing Flexion 90 Extension 35 Rotation Left 25 Rotation Right 20 Lateral Flexion Left 28 Lateral Flexion Right 25 Comments R SB is with flexion of hips Hip Goniometric Range of Motion Hip Right Passive Testing Position Supine Flexion w/Knee Flexed 115 Internal Rotation 25 External Rotation 85 Left Passive Testing Position Supine Flexion w/Knee Flexed 115 Internal Rotation 15 External Rotation 85 PT-OP-M Strength Start: 11/06/21 16:31 Freq: Status: Active Protocol: Document 11/09/21 14:32 LRN (Rec: 11/09/21 19:06 LRN [id number]) Trunk Strength Trunk Manual Muscle Testing Testing Position Supine Core Stabilization Pt was able to mostly hold her core stable with MMT of LE's; therefore graded 4/5. Hip Strength Hip Manual Muscle Testing Right Flexion (L2) 5 Normal Abduction 5 Normal Adduction 2 Poor External Rotation 5 Normal Internal Rotation 5 Normal Left Flexion (L2) 5 Normal Abduction 5 Normal Adduction 1 Trace External Rotation 3+ Fair+ Internal Rotation 5 Normal PT-OP-Q Treatments Start: 11/06/21 16:31 Freq: Status: Active Protocol: Document 11/09/21 14:32 LRN (Rec: 11/09/21 19:06 LRN [id number]) Self-Care/Home Management Treatment Education Other Education Discussed results of evaluation, goals, and plan of care (POC). Pt agreeable to goals and POC. Reviewed pain management techniques with use of heat and ice. Discussed treatments of past and discussed what was helpful or hurtful. Pt felt EMG biofeedback and use of E-Stim was not helpful. Discussed she did not continue self trP treatment and stretches. Discussed manual therapy may have been helpful. PT-OP-T Assessment and Plan Start: 11/06/21 16:31 Freq: Status: Active Protocol: Document 11/09/21 14:32 LRN (Rec: 11/09/21 19:06 N [id number]) Physical Therapy Assessment Rehab Potential Rehabilitation Potential Excellent Evaluation Complexity Number of Personal Factors/Comorbidities 3 or More Number of Body Systems Impaired 4 or More Clinical Presentation at Evaluation Evolving Impairments Impairments Activity Tolerance,Pain, Posture,ROM,Soft Tissue Mobility Goals Three Impairment Lower abdominal pain rated 4-9 /10 Senior Living Goal (LTG) Decrease abdominal pain onset to intermittent. LTG Duration 02/07/22 Two Impairment PF muscle spasms daily Impairment Feels spasms occur daily up to 20 times daily, Senior Living Goal (LTG) Goal is to decrease spasms by 50% to be able to manage at home. Feels spasms occur daily up to 20 times daily, LTG Duration 02/07/22 One Impairment Pt is not consistently participating in a self care HEP Short Term Goal (STG) Pt will be educated in self trP treatment to the PF for pain relief. STG Duration 11/20/21 Platform Architect Goal (LTG) Pt will be educated and independent in PF, hip and low back stretches. LTG Duration 02/07/22 Assessment Summary Assessment Pt presents with soft tissue dysfunction of the external and internal PF with light pressure. At the vaginal opening she has redness that is also quite tender. Internally she is tender around the entire PF clock with light pressure. She has redness in her external PF in the labia majora and dryness in the labia minora. Medication would probably be helpful in improving the tissue health both externally and at the vaginal opening to reduce redness. The pt also presents with soft tissue tightnes in her hips bilaterally. She appears to have fair lumbar mobility, but further assessment of her low back/pelvic region to assess for other soft tissue dysfunction. She has anterior pelvic pain in the lower abdomen with expected decrease in visceral mobility. The pt has an extensive history of physical therapy treatment with limited sucess; therefore progress may be limited and will depend on the consistence of the pt in her self care and HEP. It would be helpful for the pt to receive mindfulness training if a practitioner is available. The pt will benefit from skilled physical therapy for manual therapy of PF, abdominal, visceral, low back and hips, as well as therapeutic ex to improve hip pelvic mobility and exercise. 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 Physical Therapy Plan Frequency and Duration Frequency of Treatment 1x/Week Plan of Care Start Date 11/09/21 Plan of Care End Date 02/07/22 Therapeutic Interventions Therapeutic Interventions Home Exercise Program,Joint Mobilizations,Manual Therapy, Neuromuscular Re-education, Patient/Caregiver Education, Self-Care/Home Management,Soft Tissue Mobilization, Therapeutic Activities, Therapeutic Exercises Modalities Cold Pack/Ice Massage,Electric Stimulation,Hot Packs Next Visit Focus/Plan Next Note Type Treatment Note Next Visit Plan Plan: The pt will benefit from skilled physical therapy for focus on decreasing soft tissue muscle guarding and pain in the PF, abdomen, hips and low back; improving lumbar/hip (IR,?ext) mobility and for hip/core stabilization , PF relaxation. Pt education will be focused on self care and home exercise. Assess core & hip ext strength , Review Self stretching PF with wand and relaxation through breathing, Start HEP: hip IR, ?ext, and lumbar flexion stretch Strengthen core and initiate walking program, Educate in proper body mechanics and posture, MFR abdomen, viscer, low back, OI, Piriformis .
--- NOTE | 2021-11-09 17:07 | PT.OPPOC ---
Physical, Occupational & Speech Therapy At [facility] Current Diagnoses Stiffness of unspecified hip, not elsewhere classified (11/09/21) Pelvic and perineal pain (11/09/21) Visit Care Team Role Provider Type Dax Mosley MD Family Provider Physician Primary Care Provider Specialty: Family Practice Address: [address] [place] [address] Email: [email or web address] Khushbu Saldivar MD Attending Provider Physician Referring Provider Specialty: Gynecology [employer] Obstetrics Address: [address] [place] [address], [id number] Email: [email or web address] Plan Of Care PT-OP-T Assessment and Plan Start: 11/06/21 16:31 Freq: Status: Active Protocol: Document 11/09/21 14:32 LRN (Rec: 11/09/21 19:06 LRN [id number]) Physical Therapy Assessment Rehab Potential Rehabilitation Potential Excellent Evaluation Complexity Number of Personal Factors/Comorbidities 3 or More Number of Body Systems Impaired 4 or More Clinical Presentation at Evaluation Evolving Impairments Impairments Activity Tolerance,Pain, Posture,ROM,Soft Tissue Mobility Goals Three Impairment Lower abdominal pain rated 4-9 /10 Twill Cutter Goal (LTG) Decrease abdominal pain onset to intermittent. LTG Duration 02/07/22 Two Impairment PF muscle spasms daily Impairment Feels spasms occur daily up to 20 times daily, Twill Cutter Goal (LTG) Goal is to decrease spasms by 50% to be able to manage at home. Feels spasms occur daily up to 20 times daily, LTG Duration 02/07/22 One Impairment Pt is not consistently participating in a self care HEP Short Term Goal (STG) Pt will be educated in self trP treatment to the PF for pain relief. STG Duration 11/20/21 Twill Cutter Goal (LTG) Pt will be educated and independent in PF, hip and low back stretches. LTG Duration 02/07/22 Assessment Summary Assessment Pt presents with soft tissue dysfunction of the external and internal PF with light pressure. At the vaginal opening she has redness that is also quite tender. Internally she is tender around the entire PF clock with light pressure. She has redness in her external PF in the labia majora and dryness in the labia minora. Medication would probably be helpful in improving the tissue health both externally and at the vaginal opening to reduce redness. The pt also presents with soft tissue tightnes in her hips bilaterally. She appears to have fair lumbar mobility, but further assessment of her low back/pelvic region to assess for other soft tissue dysfunction. She has anterior pelvic pain in the lower abdomen with expected decrease in visceral mobility. The pt has an extensive history of physical therapy treatment with limited sucess; therefore progress may be limited and will depend on the consistence of the pt in her self care and HEP. It would be helpful for the pt to receive mindfulness training if a practitioner is available. The pt will benefit from skilled physical therapy for manual therapy of PF, abdominal, visceral, low back and hips, as well as therapeutic ex to improve hip pelvic mobility and exercise. 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 Physical Therapy Plan Frequency and Duration Frequency of Treatment 1x/Week Plan of Care Start Date 11/09/21 Plan of Care End Date 02/07/22 Therapeutic Interventions Therapeutic Interventions Home Exercise Program,Joint Mobilizations,Manual Therapy, Neuromuscular Re-education, Patient/Caregiver Education, Self-Care/Home Management,Soft Tissue Mobilization, Therapeutic Activities, Therapeutic Exercises Modalities Cold Pack/Ice Massage,Electric Stimulation,Hot Packs Next Visit Focus/Plan Next Note Type Treatment Note Next Visit Plan Plan: The pt will benefit from skilled physical therapy for focus on decreasing soft tissue muscle guarding and pain in the PF, abdomen, hips and low back; improving lumbar/hip (IR,?ext) mobility and for hip/core stabilization , PF relaxation. Pt education will be focused on self care and home exercise. Assess core & hip ext strength , Review Self stretching PF with wand and relaxation through breathing, Start HEP: hip IR, ?ext, and lumbar flexion stretch Strengthen core and initiate walking program, Educate in proper body mechanics and posture, MFR abdomen, viscer, low back, OI, Piriformis . Plan of Care Dates Plan of Care Start Date 11/09/21 Plan of Care End Date 02/07/22 Electronically Signed by: Jessie Lopez, PT 11/10/21 0767 If you are in agreement with this Plan of Care, please return a signed and dated copy. I have reviewed this Plan of Care and certify that the skilled therapy services above are required to meet the patient?s needs. Physician Signature Date Printed Name and Credentials Clinical Instructor Signature Printed Name and Credentials
--- NOTE | 2021-11-16 17:10 | PT.OTN ---
Current Diagnoses Stiffness of unspecified hip, not elsewhere classified (11/16/21) Pelvic and perineal pain (11/16/21) Physical Therapy Treatment Note PT-OP-A Visit Information Start: 11/06/21 16:31 Freq: Status: Active Protocol: Document 11/16/21 13:01 LRN (Rec: 11/16/21 13:49 LRN [id number]) Out-Patient Physical Therapy Visit Information Visit Information Visit Type Treatment Note Visit Start Time 13:01 Visit Stop Time 13:40 Total Visit Minutes 39 Visit Number 2 Evaluation Information Evaluation Date 11/09/21 Precautions Precautions Currently dealing with breast abscess. Record review indicates PMH: Herpes, IBSD, Obesity (BMI 40. 6), endometriosis determined by laproscopy s/p ovarian cystectomy, abdominal pain, POTS in 2017, HPV infection 2013, cervical radiculopathy. Pt reports 3, Parity 0, miscarriages 3 before 1st trimester (~8-10 weeks). PT-OP-B Current Condition Start: 11/06/21 16:31 Freq: Status: Active Protocol: Document 11/09/21 14:32 LRN (Rec: 11/09/21 19:06 LRN [id number]) Current Condition History of Current Condition Onset Date 06/2021 Current Complaints Having PF spasms with no full relaxation. History of Current Condition Pelvic pain off/on several years. Recent flare up Jun 2022. Has had PT for PFP in [id number] in [place] for a couple weeks and was not beneficial with biofeedback treatments. Tried PT at [facility]/ [facility], but didn't feel it was improving in mid 2019. PT was aggrevating symptoms more than benefitting; therefore is deciding to try a different PT office. e/[facility]a was horrendous after biofeedback and E-Stim internally due to pain. After E-Stim had to be knocked out and was given injections that helped with spasms. She also received internal manual work in mid 2903-9325 and ex's. Has done self trigger point releases at home and is now too tender. Having more spasms. Sometimes changing positions helps. At work is having to stand more and is helping. Sitting creates spasms. 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 She has a couple episodes of diahrrea a day that is controllable. Has heating pad, uses ice and sometimes sex helps or it makes it worse . Prior Treatments and Tests Numerous diagnosic labs. Adenomyosis, endometriosis and 6-8 laproscopic surgeries ( 2018 or 2019 with last due to ovarian cysts). Hysterectomy, keeping both ovaries. Future Testing and Treatments Planned Testing for mastitis of the breast tissues. Treatment Goals Patient/Caregiver Goals Goal is to decrease spasms to manage it at home. Feels spasms occur daily up to 20 times daily, Her goal is 50% reducation. 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 , trying to adopt. Functional Limitations- Mobility/Gait Squats increase spasms. 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 Currently dealing with breast abscess, BMI 40.6, endometriosis determined by laproscopy s/p ovarian cystectomy, 6-8 laproscopic surgeries, IBSD Records indicate abdominal pain. PT-OP-C Subjective Start: 11/06/21 16:31 Freq: Status: Active Protocol: Document 11/16/21 13:01 LRN (Rec: 11/16/21 13:49 LRN [id number]) OP-PT Subjective Patient Comments Patient Comments Pain is 6/10. PT-OP-H Neuro Start: 11/06/21 16:31 Freq: Status: Active Protocol: Document 11/09/21 14:32 LRN (Rec: 11/09/21 19:06 LRN [id number]) Sensation Evaluation Gross Sensation Sensation Description Hyperesthesia Comments Summary Comments Has sensation, hypersensitive due to increase in methyltrixate, and mherpes sympliex virus 2. PT-OP-I Pelvic Floor Start: 11/06/21 16:31 Freq: Status: Active Protocol: Document 11/09/21 14:32 LRN (Rec: 11/09/21 19:06 N [id number]) Pelvic Floor Assessment Pelvic Clock Pelvic Clock 12-3 Tenderness,Tightness Pelvic Clock 3-6 Tenderness,Tightness Pelvic Clock 6-9 Tenderness,Tightness Pelvic Clock 9-12 Tenderness,Tightness Pelvic Clock Other Pt indicates per intake form that she does not have the sensation that she needs to go to the toilet. Prolapse Cystocele Grade 2 Prolapse Comments Checked in supine Contraction Ability Voluntary Relaxation Absent Comments Pelvic Floor Comments Strength testing deferred due to Vaginal tightness & pain with internal palpation. When asked to do a PF contraction, no visible contraction is noted externally (no clitoral nod or anal wink). Pt denies constipation or uinary leakage. She notes sometimes she has diahrrea. PT-OP-J Posture/Palpation/Skin Start: 11/06/21 16:31 Freq: Status: Active Protocol: Document 11/09/21 14:32 LRN (Rec: 11/09/21 19:06 LRN [id number]) Posture Evaluation Position Standing Head/C-Spine Posture Forward Head T-Spine Posture Flattened L-Spine Posture Increased Lordosis Shoulder Posture (L) Elevated Arm Posture (L) Internally Rotated,(R) Internally Rotated Pelvis Posture Anteriorly Tilted Ankle/Foot Posture (R) Forefoot Adducted Comments Posture Comments R handed. R shoulder/breast low, wide stance, Dowagers hump, flat uppoer T/S with flexion apex T6-T7, mildly hyperextended at knees. Endomorphic body type (5' 6, 250#) PT-OP-K Range of Motion Start: 11/06/21 16:31 Freq: Status: Active Protocol: Document 11/09/21 14:32 LRN (Rec: 11/09/21 19:06 LRN [id number]) Lumbar Spine Range of Motion Lumbar Spine Active Degrees Testing Position Standing Flexion 90 Extension 35 Rotation Left 25 Rotation Right 20 Lateral Flexion Left 28 Lateral Flexion Right 25 Comments R SB is with flexion of hips Hip Goniometric Range of Motion Hip Right Passive Testing Position Supine Flexion w/Knee Flexed 115 Internal Rotation 25 External Rotation 85 Left Passive Testing Position Supine Flexion w/Knee Flexed 115 Internal Rotation 15 External Rotation 85 PT-OP-M Strength Start: 11/06/21 16:31 Freq: Status: Active Protocol: Document 11/09/21 14:32 LRN (Rec: 11/09/21 19:06 LRN [id number]) Trunk Strength Trunk Manual Muscle Testing Testing Position Supine Core Stabilization Pt was able to mostly hold her core stable with MMT of LE's; therefore graded 4/5. Hip Strength Hip Manual Muscle Testing Right Flexion (L2) 5 Normal Abduction 5 Normal Adduction 2 Poor External Rotation 5 Normal Internal Rotation 5 Normal Left Flexion (L2) 5 Normal Abduction 5 Normal Adduction 1 Trace External Rotation 3+ Fair+ Internal Rotation 5 Normal PT-OP-Q Treatments Start: 11/06/21 16:31 Freq: Status: Active Protocol: Document 11/16/21 13:01 LRN (Rec: 11/16/21 13:49 LRN [id number]) Therapeutic Exercises Supine Exercises Lateral Hip stretch Supine Exercise Name Lateral Hip stretch Side bilateral Reps/Minutes 60 each Piriformis stretch Supine Exercise Name Piriformis stretch Side bilateral Reps/Minutes 60 each Sitting Exercises Piriformis stretch Sitting Exercise Name Piriformis stretch Side bilateral Reps/Minutes 60 each Manual Therapy Treatment Soft Tissue Mobilization L Ischial Tub Body Location L Ischium PA mobilization Mobilization Type Sustained Pressure Intensity/Depth Moderate Body Position Prone Comments Not able to fully correct stiffness. Sacrum Body Location R sacral sulcus and CANDACE PA mobilization Mobilization Type Sustained Pressure Intensity/Depth Moderate Body Position Prone Lower Abdomen Body Location Lower abdomen fascia, bladder, bladder with knee rolls. Mobilization Type Myofascial Release,Sustained Pressure Intensity/Depth Superficial Body Position Hooklying Comments Feet up on bolster Self-Care/Home Management Treatment Education Patient Education Home Exercise Program Activities Self-Care/Home Management Activities Issued & reviewed HEP: Piriformis, Lateral Hip & Hip flexor stretch. Issued SMALL wand for PF stretching with I/S to start exterally and work internally. PT-OP-T Assessment and Plan Start: 11/06/21 16:31 Freq: Status: Active Protocol: Document 11/16/21 13:01 LRN (Rec: 11/16/21 13:49 LR [id number]) Physical Therapy Assessment Goals Three Impairment Lower abdominal pain rated 4-9 /10 Real Estate Subagent Goal (LTG) Decrease abdominal pain onset to intermittent. LTG Duration 02/07/22 Two Impairment PF muscle spasms daily Impairment Feels spasms occur daily up to 20 times daily, Real Estate Subagent Goal (LTG) Goal is to decrease spasms by 50% to be able to manage at home. Feels spasms occur daily up to 20 times daily, LTG Duration 02/07/22 One Impairment Pt is not consistently participating in a self care HEP Short Term Goal (STG) Pt will be educated in self trP treatment to the PF for pain relief. (11/16/21: Pt educated in self trP treatment with small wand issued). STG Duration 11/20/21 (11/16/21: MET GOAL) Real Estate Subagent Goal (LTG) Pt will be educated and independent in PF, hip and low back stretches. (11/16/21: HEP: added piriformis and lateral hip stretch) LTG Duration 02/07/22 (11/16/21: Progressed) Progress Towards Goals Progress Comments Progressed HEP STG #1: MET, pt on self trP treatment to the PF for pain relief. Assessment Summary Assessment Pt felt medium wand for PF external/internal stretching was too big; therefore issued small wand. Pt needed training with Piriformis stretch sitting and supine, but appeared to have a good understanding after initial training. With STM, bladder appeared R rotated and in prone pelvis was in R rotation (Posterior at R sacral sulcus and CANDACE). L Ischium, R Sacral Sulcus & CANDACE was more immobile. Inferior glide of sacrum appeared equal. Pt had good MFR of lower abdomien and on the L side released first in Low back vs abdomen. Physical Therapy Plan Frequency and Duration Frequency of Treatment 1x/Week Plan of Care Start Date 11/09/21 Plan of Care End Date 02/07/22 Next Visit Focus/Plan Next Note Type Treatment Note Next Visit Plan Review Self stretching PF with wand and relaxation through breathing, Assess core & hip ext strength and issue HEP as appropriate, Start HEP: lumbar stretches ( DKTC, LTR, Happy Baby pose); & I/S in improving PF circulation by initiating a walking program, Teach PF relaxation. Educate in proper body mechanics and posture, MFR: abdomen, viscer, low back , OI, Piriformis. Improve lumbar/hip (IR,?ext) mobility and for hip/core stabilization, Pt education will be focused on self care and home exercise . Plan: Focus on setting pt on HEP, then decreasing soft tissue muscle guarding and pain in the PF, abdomen, hips and low back. IH_
--- NOTE | 2021-12-30 12:09 | PT.OTN ---
Current Diagnoses Stiffness of unspecified hip, not elsewhere classified (12/30/21) Pelvic and perineal pain (12/30/21) Physical Therapy Treatment Note PT-OP-A Visit Information Start: 11/06/21 16:31 Freq: Status: Active Protocol: Document 12/30/21 09:45 AMB (Rec: 12/30/21 10:34 AMB [id number]) Out-Patient Physical Therapy Visit Information Visit Information Visit Type Treatment Note Visit Start Time 09:45 Visit Stop Time 10:30 Total Visit Minutes 45 Visit Number 3 PT-OP-B Current Condition Start: 11/06/21 16:31 Freq: Status: Active Protocol: Document 11/09/21 14:32 LRN (Rec: 11/09/21 19:06 LRN [id number]) Current Condition History of Current Condition Onset Date 06/2021 Current Complaints Having PF spasms with no full relaxation. History of Current Condition Pelvic pain off/on several years. Recent flare up Jun 2022. Has had PT for PFP in [id number] in [place] for a couple weeks and was not beneficial with biofeedback treatments. Tried PT at e/ [facility], but didn't feel it was improving in mid 2019. PT was aggrevating symptoms more than benefitting; therefore is deciding to try a different PT office. Velia/Primaverbhavana was horrendous after biofeedback and E-Stim internally due to pain. After E-Stim had to be knocked out and was given injections that helped with spasms. She also received internal manual work in mid 4667-0526 and ex's. Has done self trigger point releases at home and is now too tender. Having more spasms. Sometimes changing positions helps. At work is having to stand more and is helping. Sitting creates spasms. 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 She has a couple episodes of diahrrea a day that is controllable. Has heating pad, uses ice and sometimes sex helps or it makes it worse . Prior Treatments and Tests Numerous diagnosic labs. Adenomyosis, endometriosis and 6-8 laproscopic surgeries ( 2018 or 2019 with last due to ovarian cysts). Hysterectomy, keeping both ovaries. Future Testing and Treatments Planned Testing for mastitis of the breast tissues. Treatment Goals Patient/Caregiver Goals Goal is to decrease spasms to manage it at home. Feels spasms occur daily up to 20 times daily, Her goal is 50% reducation. 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 , trying to adopt. Functional Limitations- Mobility/Gait Squats increase spasms. 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 Currently dealing with breast abscess, BMI 40.6, endometriosis determined by laproscopy s/p ovarian cystectomy, 6-8 laproscopic surgeries, IBSD Records indicate abdominal pain. PT-OP-C Subjective Start: 11/06/21 16:31 Freq: Status: Active Protocol: Document 12/30/21 09:45 AMB (Rec: 12/30/21 10:34 AMB [id number]) OP-PT Subjective Patient Comments Patient Comments Patient has adopted a baby and life has been more stressful with that hence a lot of the cancels. After last visit did flare up a bit, but then calmed down and relaxed a bit more. Spasms more on left side because holding baby on left side. PT-OP-H Neuro Start: 11/06/21 16:31 Freq: Status: Active Protocol: Document 11/09/21 14:32 LRN (Rec: 11/09/21 19:06 LRN [id number]) Sensation Evaluation Gross Sensation Sensation Description Hyperesthesia Comments Summary Comments Has sensation, hypersensitive due to increase in methyltrixate, and mherpes sympliex virus 2. PT-OP-I Pelvic Floor Start: 11/06/21 16:31 Freq: Status: Active Protocol: Document 11/09/21 14:32 LRN (Rec: 11/09/21 19:06 LRN [id number]) Pelvic Floor Assessment Pelvic Clock Pelvic Clock 12-3 Tenderness,Tightness Pelvic Clock 3-6 Tenderness,Tightness Pelvic Clock 6-9 Tenderness,Tightness Pelvic Clock 9-12 Tenderness,Tightness Pelvic Clock Other Pt indicates per intake form that she does not have the sensation that she needs to go to the toilet. Prolapse Cystocele Grade 2 Prolapse Comments Checked in supine Contraction Ability Voluntary Relaxation Absent Comments Pelvic Floor Comments Strength testing deferred due to Vaginal tightness & pain with internal palpation. When asked to do a PF contraction, no visible contraction is noted externally (no clitoral nod or anal wink). Pt denies constipation or uinary leakage. She notes sometimes she has diahrrea. PT-OP-J Posture/Palpation/Skin Start: 11/06/21 16:31 Freq: Status: Active Protocol: Document 11/09/21 14:32 LRN (Rec: 11/09/21 19:06 LRN [id number]) Posture Evaluation Position Standing Head/C-Spine Posture Forward Head T-Spine Posture Flattened L-Spine Posture Increased Lordosis Shoulder Posture (L) Elevated Arm Posture (L) Internally Rotated,(R) Internally Rotated Pelvis Posture Anteriorly Tilted Ankle/Foot Posture (R) Forefoot Adducted Comments Posture Comments R handed. R shoulder/breast low, wide stance, Dowagers hump, flat uppoer T/S with flexion apex T6-T7, mildly hyperextended at knees. Endomorphic body type (5' 6, 250#) PT-OP-K Range of Motion Start: 11/06/21 16:31 Freq: Status: Active Protocol: Document 11/09/21 14:32 LRN (Rec: 11/09/21 19:06 LRN [id number]) Lumbar Spine Range of Motion Lumbar Spine Active Degrees Testing Position Standing Flexion 90 Extension 35 Rotation Left 25 Rotation Right 20 Lateral Flexion Left 28 Lateral Flexion Right 25 Comments R SB is with flexion of hips Hip Goniometric Range of Motion Hip Right Passive Testing Position Supine Flexion w/Knee Flexed 115 Internal Rotation 25 External Rotation 85 Left Passive Testing Position Supine Flexion w/Knee Flexed 115 Internal Rotation 15 External Rotation 85 PT-OP-M Strength Start: 11/06/21 16:31 Freq: Status: Active Protocol: Document 11/09/21 14:32 LRN (Rec: 11/09/21 19:06 LRN [id number]) Trunk Strength Trunk Manual Muscle Testing Testing Position Supine Core Stabilization Pt was able to mostly hold her core stable with MMT of LE's; therefore graded 4/5. Hip Strength Hip Manual Muscle Testing Right Flexion (L2) 5 Normal Abduction 5 Normal Adduction 2 Poor External Rotation 5 Normal Internal Rotation 5 Normal Left Flexion (L2) 5 Normal Abduction 5 Normal Adduction 1 Trace External Rotation 3+ Fair+ Internal Rotation 5 Normal PT-OP-Q Treatments Start: 11/06/21 16:31 Freq: Status: Active Protocol: Document 12/30/21 09:45 AMB (Rec: 12/30/21 12:08 AMB [id number]) Therapeutic Exercises Supine Exercises Adductor stretch Supine Exercise Name straight leg Reps/Minutes 30x4 Comments passive Lateral Hip stretch Supine Exercise Name Lateral Hip stretch Side bilateral Reps/Minutes 60 each Piriformis stretch Supine Exercise Name Piriformis stretch Side bilateral Reps/Minutes 60 each Manual Therapy Treatment Soft Tissue Mobilization L hip flexor Mobilization Type Myofascial Release,Trigger Point Release Intensity/Depth Moderate Body Position Supine Lower Abdomen Body Location Lower abdomen fascia, Mobilization Type Myofascial Release,Sustained Pressure Intensity/Depth Superficial Body Position Hooklying Comments Feet up on bolster Manual Traction long axis distraction Details left Body Position Supine Comments with small range hip abd PT-OP-T Assessment and Plan Start: 11/06/21 16:31 Freq: Status: Active Protocol: Document 12/30/21 09:45 AMB (Rec: 12/30/21 10:34 AMB [id number]) Physical Therapy Assessment Goals Three Impairment Lower abdominal pain rated 4-9 /10 Emergency Planner Goal (LTG) Decrease abdominal pain onset to intermittent. LTG Duration 02/07/22 Two Impairment PF muscle spasms daily Impairment Feels spasms occur daily up to 20 times daily, Assisted Goal (LTG) Goal is to decrease spasms by 50% to be able to manage at home. Feels spasms occur daily up to 20 times daily, LTG Duration 02/07/22 One Impairment Pt is not consistently participating in a self care HEP Short Term Goal (STG) Pt will be educated in self trP treatment to the PF for pain relief. (11/16/21: Pt educated in self trP treatment with small wand issued). STG Duration 11/20/21 (11/16/21: MET GOAL) Emergency Planner Goal (LTG) Pt will be educated and independent in PF, hip and low back stretches. (11/16/21: HEP: added piriformis and lateral hip stretch) LTG Duration 02/07/22 (11/16/21: Progressed) Assessment Summary Assessment Pt has been trying to do stretches, but very intermittent due to 5 week old son. Pain has been worse on L, discussed holding baby more symmetrically, but breast abscess on R makes this difficult. Did feel looser after manual/stretching today. Physical Therapy Plan Frequency and Duration Frequency of Treatment 1x/Week Plan of Care Start Date 11/09/21 Plan of Care End Date 02/07/22 Next Visit Focus/Plan Next Note Type Treatment Note Next Visit Plan Review Self stretching PF with wand and relaxation through breathing, Assess core & hip ext strength and issue HEP as appropriate, Start HEP: lumbar stretches ( DKTC, LTR, Happy Baby pose); & I/S in improving PF circulation by initiating a walking program, Teach PF relaxation. Educate in proper body mechanics and posture, MFR: abdomen, viscer, low back , OI, Piriformis. Improve lumbar/hip (IR,?ext) mobility and for hip/core stabilization, Pt education will be focused on self care and home exercise . Plan: Focus on setting pt on HEP, then decreasing soft tissue muscle guarding and pain in the PF, abdomen, hips and low back.
--- NOTE | 2022-01-04 14:46 | PT.OTN ---
Current Diagnoses Stiffness of unspecified hip, not elsewhere classified (01/04/22) Pelvic and perineal pain (01/04/22) Physical Therapy Treatment Note PT-OP-A Visit Information Start: 11/06/21 16:31 Freq: Status: Active Protocol: Document 01/04/22 13:50 LRN (Rec: 01/04/22 14:44 LRN [id number]) Out-Patient Physical Therapy Visit Information Visit Information Visit Type Treatment Note Visit Start Time 13:50 Visit Stop Time 14:35 Total Visit Minutes 45 Visit Number 4 Evaluation Information Evaluation Date 11/09/21 Precautions Precautions Currently dealing with breast abscess. Record review indicates PMH: Herpes, IBSD, Obesity (BMI 40. 6), endometriosis determined by laproscopy s/p ovarian cystectomy, abdominal pain, POTS in 2017, HPV infection 2013, cervical radiculopathy. Pt reports 3, Parity 0, miscarriages 3 before 1st trimester (~8-10 weeks). PT-OP-B Current Condition Start: 11/06/21 16:31 Freq: Status: Active Protocol: Document 11/09/21 14:32 LRN (Rec: 11/09/21 19:06 LRN [id number]) Current Condition History of Current Condition Onset Date 06/2021 Current Complaints Having PF spasms with no full relaxation. History of Current Condition Pelvic pain off/on several years. Recent flare up Jun 2022. Has had PT for PFP in [id number] in [place] for a couple weeks and was not beneficial with biofeedback treatments. Tried PT at [facility]/ [facility], but didn't feel it was improving in mid 2019. PT was aggrevating symptoms more than benefitting; therefore is deciding to try a different PT office. e/Primavera was horrendous after biofeedback and E-Stim internally due to pain. After E-Stim had to be knocked out and was given injections that helped with spasms. She also received internal manual work in mid 5638-7144 and ex's. Has done self trigger point releases at home and is now too tender. Having more spasms. Sometimes changing positions helps. At work is having to stand more and is helping. Sitting creates spasms. 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 She has a couple episodes of diahrrea a day that is controllable. Has heating pad, uses ice and sometimes sex helps or it makes it worse . Prior Treatments and Tests Numerous diagnosic labs. Adenomyosis, endometriosis and 6-8 laproscopic surgeries ( 2018 or 2019 with last due to ovarian cysts). Hysterectomy, keeping both ovaries. Future Testing and Treatments Planned Testing for mastitis of the breast tissues. Treatment Goals Patient/Caregiver Goals Goal is to decrease spasms to manage it at home. Feels spasms occur daily up to 20 times daily, Her goal is 50% reducation. 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 No children. , trying to adopt. Functional Limitations- Mobility/Gait Squats increase spasms. 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 Currently dealing with breast abscess, BMI 40.6, endometriosis determined by laproscopy s/p ovarian cystectomy, 6-8 laproscopic surgeries, IBSD Records indicate abdominal pain. PT-OP-C Subjective Start: 11/06/21 16:31 Freq: Status: Active Protocol: Document 01/04/22 13:50 LRN (Rec: 01/04/22 14:44 LRN [id number]) OP-PT Subjective Patient Comments Patient Comments Adopted and now on maternity leave until end of January. Baby is 6 wks, 2 days old and weighs just over 10#. No change with adominal pain, has more flare ups on the L because holding baby on the left. Pain spasms on L lower abdomen and feels internally PF pain L>R. States she has bowel movements daily. Doesn' t notice a difference in pain after stretching. Has tried stretching with dilator 1x, other 2x caused more spasms. Had R breast abcess and is doing wound care. States she will need to change her appts to (not day that that [facility] works); therefore will change therapists to [facility]. PT-OP-H Neuro Start: 11/06/21 16:31 Freq: Status: Active Protocol: Document 11/09/21 14:32 LRN (Rec: 11/09/21 19:06 LRN [id number]) Sensation Evaluation Gross Sensation Sensation Description Hyperesthesia Comments Summary Comments Has sensation, hypersensitive due to increase in methyltrixate, and mherpes sympliex virus 2. PT-OP-I Pelvic Floor Start: 11/06/21 16:31 Freq: Status: Active Protocol: Document 11/09/21 14:32 LRN (Rec: 11/09/21 19:06 LRN [id number]) Pelvic Floor Assessment Pelvic Clock Pelvic Clock 12-3 Tenderness,Tightness Pelvic Clock 3-6 Tenderness,Tightness Pelvic Clock 6-9 Tenderness,Tightness Pelvic Clock 9-12 Tenderness,Tightness Pelvic Clock Other Pt indicates per intake form that she does not have the sensation that she needs to go to the toilet. Prolapse Cystocele Grade 2 Prolapse Comments Checked in supine Contraction Ability Voluntary Relaxation Absent Comments Pelvic Floor Comments Strength testing deferred due to Vaginal tightness & pain with internal palpation. When asked to do a PF contraction, no visible contraction is noted externally (no clitoral nod or anal wink). Pt denies constipation or uinary leakage. She notes sometimes she has diahrrea. PT-OP-J Posture/Palpation/Skin Start: 11/06/21 16:31 Freq: Status: Active Protocol: Document 11/09/21 14:32 LRN (Rec: 11/09/21 19:06 LRN [id number]) Posture Evaluation Position Standing Head/C-Spine Posture Forward Head T-Spine Posture Flattened L-Spine Posture Increased Lordosis Shoulder Posture (L) Elevated Arm Posture (L) Internally Rotated,(R) Internally Rotated Pelvis Posture Anteriorly Tilted Ankle/Foot Posture (R) Forefoot Adducted Comments Posture Comments R handed. R shoulder/breast low, wide stance, Dowagers hump, flat uppoer T/S with flexion apex T6-T7, mildly hyperextended at knees. Endomorphic body type (5' 6, 250#) PT-OP-K Range of Motion Start: 11/06/21 16:31 Freq: Status: Active Protocol: Document 11/09/21 14:32 LRN (Rec: 11/09/21 19:06 LRN [id number]) Lumbar Spine Range of Motion Lumbar Spine Active Degrees Testing Position Standing Flexion 90 Extension 35 Rotation Left 25 Rotation Right 20 Lateral Flexion Left 28 Lateral Flexion Right 25 Comments R SB is with flexion of hips Hip Goniometric Range of Motion Hip Right Passive Testing Position Supine Flexion w/Knee Flexed 115 Internal Rotation 25 External Rotation 85 Left Passive Testing Position Supine Flexion w/Knee Flexed 115 Internal Rotation 15 External Rotation 85 PT-OP-M Strength Start: 11/06/21 16:31 Freq: Status: Active Protocol: Document 11/09/21 14:32 LRN (Rec: 11/09/21 19:06 LRN [id number]) Trunk Strength Trunk Manual Muscle Testing Testing Position Supine Core Stabilization Pt was able to mostly hold her core stable with MMT of LE's; therefore graded 4/5. Hip Strength Hip Manual Muscle Testing Right Flexion (L2) 5 Normal Abduction 5 Normal Adduction 2 Poor External Rotation 5 Normal Internal Rotation 5 Normal Left Flexion (L2) 5 Normal Abduction 5 Normal Adduction 1 Trace External Rotation 3+ Fair+ Internal Rotation 5 Normal PT-OP-Q Treatments Start: 11/06/21 16:31 Freq: Status: Active Protocol: Document 01/04/22 13:50 LRN (Rec: 01/04/22 14:44 LRN [id number]) Cardio Equipment Treadmill Duration (Minutes) 10 Speed 2.0 > 2.2 Incline 0 Other Cuing needed to maintain stable core during gait Therapeutic Exercises Supine Exercises Hamstring stretch Supine Exercise Name ASLR hamstring stretch Side bilateral Reps/Minutes 60 each LTR stretch Supine Exercise Name LTR stretch Side bilateral Happy Baby Pose Supine Exercise Name Happy Baby Pose Reps/Minutes 2' Ilipsoas stretch Supine Exercise Name Ilipsoas stretch Side bilateral Reps/Minutes 60 each once in proper position Comments Cuing for tolerable stretch Adductor stretch Supine Exercise Name straight leg Reps/Minutes 30x4 Lateral Hip stretch Supine Exercise Name Lateral Hip stretch Side bilateral Reps/Minutes 60 each once in proper postiion Comments Cuing for proper positioning Piriformis stretch Supine Exercise Name Piriformis stretch Side bilateral Reps/Minutes 60 each Standing Exercises PF stretch Standing Exercise Name PF Squat stretch: squat, hanging onto sink, after TM holding TM railing Comments V & Phys cuing trying to modify pt position to get PF stretch. Manual Therapy Treatment Soft Tissue Mobilization PF Body Location PF stretch external vs internal Comments Verbal review of PF stretching with wand. Recommended pt try starting with more external tissues rather than stretching with full insertion of wand. Self-Care/Home Management Treatment Education Patient Education Body Mechanics,Home Exercise Program,Posture Other Education Educated (handout issued) pt in posture and body mechanics, holding and dealing with baby. Activities Self-Care/Home Management Activities I/S pt to monitor walking program to determine time walking needed to reduce PF ms spasms. Pt I/S to maintain stable core with gait. PT-OP-T Assessment and Plan Start: 11/06/21 16:31 Freq: Status: Active Protocol: Document 01/04/22 13:50 LRN (Rec: 01/04/22 14:44 LRN [id number]) Physical Therapy Assessment Goals Three Impairment Lower abdominal pain rated 4-9 /10 Labour Market Economist Goal (LTG) Decrease abdominal pain onset to intermittent. LTG Duration 02/07/22 Two Impairment PF muscle spasms daily Impairment Feels spasms occur daily up to 20 times daily, Labour Market Economist Goal (LTG) Goal is to decrease spasms by 50% to be able to manage at home. Feels spasms occur daily up to 20 times daily, LTG Duration 02/07/22 One Impairment Pt is not consistently participating in a self care HEP Short Term Goal (STG) Pt will be educated in self trP treatment to the PF for pain relief. (11/16/21: Pt educated in self trP treatment with small wand issued). STG Duration 11/20/21 (11/16/21: MET GOAL) Mcfp Goal (LTG) Pt will be educated and independent in PF, hip and low back stretches. (11/16/21: HEP: added piriformis and lateral hip stretch) (01/04/22: Added Happy Baby Pose, attempted PF squat stretch) LTG Duration 02/07/22 (01/04/22: Progressed) Progress Towards Goals Progress Comments Progressed HEP and self care of proper posture and body mechanics Generaly Principles. Assessment Summary Assessment Pt is having PF ms spasms but is not able to feel PF stretch with Happy Baby Pose or full squat. Pt needed training for walking to maintain core stable to improve hip mobility and PF ex with gait. Physical Therapy Plan Frequency and Duration Frequency of Treatment 1x/Week Plan of Care Start Date 11/09/21 Plan of Care End Date 02/07/22 Next Visit Focus/Plan Next Note Type Treatment Note Next Visit Plan Issue HEP handout for hip stretches that pt forgot to take. Review for questions regarding general principles of body mechanics and posture . Check if pt did more external PF stretching with wand and relaxation through breathing, Assess core & hip ext strength and issue HEP as appropriate, Start HEP: I/S in improving PF circulation by initiating a walking program, Teach PF relaxation. Educate in dayly body mechanics and posture, MFR: abdomen, viscer, low back , OI, Piriformis. Improve lumbar/hip (IR,?ext) mobility and for hip/core stabilization, Pt education will be focused on self care and home exercise . Plan: Focus on setting pt on HEP, then decreasing soft tissue muscle guarding and pain in the PF, abdomen, hips and low back.
--- NOTE | 2022-01-11 17:13 | PT.OTN ---
Current Diagnoses Stiffness of unspecified hip, not elsewhere classified (01/11/22) Pelvic and perineal pain (01/11/22) Physical Therapy Treatment Note PT-OP-A Visit Information Start: 11/06/21 16:31 Freq: Status: Active Protocol: Document 01/11/22 13:47 LRN (Rec: 01/11/22 14:31 LRN [id number]) Out-Patient Physical Therapy Visit Information Visit Information Visit Type Treatment Note Visit Start Time 13:47 Visit Stop Time 14:23 Total Visit Minutes 36 Visit Number 5 Evaluation Information Evaluation Date 11/09/21 Precautions Precautions Currently dealing with breast abscess. Record review indicates PMH: Herpes, IBSD, Obesity (BMI 40. 6), endometriosis determined by laproscopy s/p ovarian cystectomy, abdominal pain, POTS in 2017, HPV infection 2013, cervical radiculopathy. Pt reports 3, Parity 0, miscarriages 3 before 1st trimester (~8-10 weeks). PT-OP-B Current Condition Start: 11/06/21 16:31 Freq: Status: Active Protocol: Document 11/09/21 14:32 LRN (Rec: 11/09/21 19:06 LRN [id number]) Current Condition History of Current Condition Onset Date 06/2021 Current Complaints Having PF spasms with no full relaxation. History of Current Condition Pelvic pain off/on several years. Recent flare up Jun 2022. Has had PT for PFP in [id number] in [place] for a couple weeks and was not beneficial with biofeedback treatments. Tried PT at [facility]/ [facility], but didn't feel it was improving in mid 2019. PT was aggrevating symptoms more than benefitting; therefore is deciding to try a different PT office. e/Primavera was horrendous after biofeedback and E-Stim internally due to pain. After E-Stim had to be knocked out and was given injections that helped with spasms. She also received internal manual work in mid 0524-8867 and ex's. Has done self trigger point releases at home and is now too tender. Having more spasms. Sometimes changing positions helps. At work is having to stand more and is helping. Sitting creates spasms. 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 She has a couple episodes of diahrrea a day that is controllable. Has heating pad, uses ice and sometimes sex helps or it makes it worse . Prior Treatments and Tests Numerous diagnosic labs. Adenomyosis, endometriosis and 6-8 laproscopic surgeries ( 2018 or 2019 with last due to ovarian cysts). Hysterectomy, keeping both ovaries. Future Testing and Treatments Planned Testing for mastitis of the breast tissues. Treatment Goals Patient/Caregiver Goals Goal is to decrease spasms to manage it at home. Feels spasms occur daily up to 20 times daily, Her goal is 50% reducation. 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 , trying to adopt. Functional Limitations- Mobility/Gait Squats increase spasms. 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 Currently dealing with breast abscess, BMI 40.6, endometriosis determined by laproscopy s/p ovarian cystectomy, 6-8 laproscopic surgeries, IBSD Records indicate abdominal pain. PT-OP-C Subjective Start: 11/06/21 16:31 Freq: Status: Active Protocol: Document 01/11/22 13:47 LRN (Rec: 01/11/22 14:31 LRN [id number]) OP-PT Subjective Patient Comments Patient Comments No change with pain. Baby has been fussy due to heat. PT-OP-H Neuro Start: 11/06/21 16:31 Freq: Status: Active Protocol: Document 11/09/21 14:32 LRN (Rec: 11/09/21 19:06 LRN [id number]) Sensation Evaluation Gross Sensation Sensation Description Hyperesthesia Comments Summary Comments Has sensation, hypersensitive due to increase in methyltrixate, and mherpes sympliex virus 2. PT-OP-I Pelvic Floor Start: 11/06/21 16:31 Freq: Status: Active Protocol: Document 11/09/21 14:32 LRN (Rec: 11/09/21 19:06 LRN [id number]) Pelvic Floor Assessment Pelvic Clock Pelvic Clock 12-3 Tenderness,Tightness Pelvic Clock 3-6 Tenderness,Tightness Pelvic Clock 6-9 Tenderness,Tightness Pelvic Clock 9-12 Tenderness,Tightness Pelvic Clock Other Pt indicates per intake form that she does not have the sensation that she needs to go to the toilet. Prolapse Cystocele Grade 2 Prolapse Comments Checked in supine Contraction Ability Voluntary Relaxation Absent Comments Pelvic Floor Comments Strength testing deferred due to Vaginal tightness & pain with internal palpation. When asked to do a PF contraction, no visible contraction is noted externally (no clitoral nod or anal wink). Pt denies constipation or uinary leakage. She notes sometimes she has diahrrea. PT-OP-J Posture/Palpation/Skin Start: 11/06/21 16:31 Freq: Status: Active Protocol: Document 11/09/21 14:32 LRN (Rec: 11/09/21 19:06 LRN [id number]) Posture Evaluation Position Standing Head/C-Spine Posture Forward Head T-Spine Posture Flattened L-Spine Posture Increased Lordosis Shoulder Posture (L) Elevated Arm Posture (L) Internally Rotated,(R) Internally Rotated Pelvis Posture Anteriorly Tilted Ankle/Foot Posture (R) Forefoot Adducted Comments Posture Comments R handed. R shoulder/breast low, wide stance, Dowagers hump, flat uppoer T/S with flexion apex T6-T7, mildly hyperextended at knees. Endomorphic body type (5' 6, 250#) PT-OP-K Range of Motion Start: 11/06/21 16:31 Freq: Status: Active Protocol: Document 11/09/21 14:32 LRN (Rec: 11/09/21 19:06 LRN [id number]) Lumbar Spine Range of Motion Lumbar Spine Active Degrees Testing Position Standing Flexion 90 Extension 35 Rotation Left 25 Rotation Right 20 Lateral Flexion Left 28 Lateral Flexion Right 25 Comments R SB is with flexion of hips Hip Goniometric Range of Motion Hip Right Passive Testing Position Supine Flexion w/Knee Flexed 115 Internal Rotation 25 External Rotation 85 Left Passive Testing Position Supine Flexion w/Knee Flexed 115 Internal Rotation 15 External Rotation 85 PT-OP-M Strength Start: 11/06/21 16:31 Freq: Status: Active Protocol: Document 11/09/21 14:32 LRN (Rec: 11/09/21 19:06 LRN [id number]) Trunk Strength Trunk Manual Muscle Testing Testing Position Supine Core Stabilization Pt was able to mostly hold her core stable with MMT of LE's; therefore graded 4/5. Hip Strength Hip Manual Muscle Testing Right Flexion (L2) 5 Normal Abduction 5 Normal Adduction 2 Poor External Rotation 5 Normal Internal Rotation 5 Normal Left Flexion (L2) 5 Normal Abduction 5 Normal Adduction 1 Trace External Rotation 3+ Fair+ Internal Rotation 5 Normal PT-OP-Q Treatments Start: 11/06/21 16:31 Freq: Status: Active Protocol: Document 01/11/22 13:47 LRN (Rec: 01/11/22 14:31 LRN [id number]) Therapeutic Exercises Supine Exercises PPT Supine Exercise Name PPT training Reps/Minutes 3' Comments Much phy cuing to back and abdomen & v cuing to relax legs/feet Happy Baby Pose Supine Exercise Name Happy Baby Pose Reps/Minutes 2' Prone Exercises Hip Ext strengthening Prone Exercise Name Hip ext leg lifts Side bilateral Reps/Minutes 15x 2 Comments Cuing to keep pelvis neutral with TA tight Sitting Exercises On TBall Sitting Exercise Name Pelvic posterior/anterior tilting training Reps/Minutes 6' Comments Much phy cuing to LB & abdomen & v cuing to not tilt body Standing Exercises PPT Standing Exercise Name PPT training against wall, free standing Reps/Minutes 10' Comments Much phy cuing to LB & abdomen & v cuing to not tilt body or bend knees Hip Ext Standing Exercise Name Active Hip Ext Side bilateral Reps/Minutes 15x Comments Cuing to keep pelvis from anterior tilting, cuing abdominals Self-Care/Home Management Treatment Activities Self-Care/Home Management Activities Encouraged pt to start walking program and to stretch PF with Happy Baby Pose stretch. PT-OP-T Assessment and Plan Start: 11/06/21 16:31 Freq: Status: Active Protocol: Document 01/11/22 13:47 LRN (Rec: 01/11/22 14:31 LRN [id number]) Physical Therapy Assessment Goals Three Impairment Lower abdominal pain rated 4-9 /10 Cooper Apprentice Goal (LTG) Decrease abdominal pain onset to intermittent. LTG Duration 02/07/22 Two Impairment PF muscle spasms daily Impairment Feels spasms occur daily up to 20 times daily, Fdc Goal (LTG) Goal is to decrease spasms by 50% to be able to manage at home. Feels spasms occur daily up to 20 times daily, LTG Duration 02/07/22 One Impairment Pt is not consistently participating in a self care HEP Short Term Goal (STG) Pt will be educated in self trP treatment to the PF for pain relief. (11/16/21: Pt educated in self trP treatment with small wand issued). STG Duration 11/20/21 (11/16/21: MET GOAL) Cooper Apprentice Goal (LTG) Pt will be educated and independent in PF, hip and low back stretches. (11/16/21: HEP: added piriformis and lateral hip stretch) (01/04/22: Added Happy Baby Pose, attempted PF squat stretch) LTG Duration 02/07/22 (01/04/22: Progressed) Assessment Summary Assessment No questions regarding general principles of body mechanics and posture. Pt did not have time to do PF stretching with wand because of in-laws visiting. Pt has very core trunk flexor strength and is unable to perform a controlled PPT; therefore therapy focus today on improving pt awareness of control over pelvis and pelvic mobility. Much phy & v cuing was needed to get pt to perform a PPT 1-2x of minimal movement. She substitutes by flexing in thoracic spine, hips or knees when attempting PPT. Pt has poor separation of L/S and pelvis. Pelvis remains in flex while trying to perform a PPT. Physical Therapy Plan Frequency and Duration Frequency of Treatment 1x/Week Plan of Care Start Date 11/09/21 Plan of Care End Date 02/07/22 Next Visit Focus/Plan Next Note Type Treatment Note Next Visit Plan Pt transferring to [facility] due to pt's limited time schedule. Try improving pelvic mobility around the clock. Start external PF stretching with wand when pt brings in, and relaxation through breathing. HEP as needed after core & hip ext strength assessment, Start HEP: I/S in improving PF circulation by initiating a walking program, Teach PF relaxation. MFR: abdomen, viscer, low back , OI, Piriformis. Improve lumbar/hip (IR,?ext) mobility and for hip/core stabilization, Pt education will be focused on self care and home exercise . Plan: Focus on setting pt on HEP, then decreasing soft tissue muscle guarding and pain in the PF, abdomen, hips and low back.
--- NOTE | 2022-01-13 12:53 | PT.OTN ---
Current Diagnoses Stiffness of unspecified hip, not elsewhere classified (01/13/22) Pelvic and perineal pain (01/13/22) Physical Therapy Treatment Note PT-OP-A Visit Information Start: 11/06/21 16:31 Freq: Status: Active Protocol: Document 01/13/22 10:15 AMB (Rec: 01/13/22 10:31 AMB [id number]) Out-Patient Physical Therapy Visit Information Visit Information Visit Type Treatment Note Visit Start Time 10:20 Visit Stop Time 11:00 Total Visit Minutes 40 Visit Number 6 PT-OP-B Current Condition Start: 11/06/21 16:31 Freq: Status: Active Protocol: Document 11/09/21 14:32 LRN (Rec: 11/09/21 19:06 LRN [id number]) Current Condition History of Current Condition Onset Date 06/2021 Current Complaints Having PF spasms with no full relaxation. History of Current Condition Pelvic pain off/on several years. Recent flare up Jun 2022. Has had PT for PFP in [id number] in [place] for a couple weeks and was not beneficial with biofeedback treatments. Tried PT at e/ [facility], but didn't feel it was improving in mid 2019. PT was aggrevating symptoms more than benefitting; therefore is deciding to try a different PT office. Velia/Primaverbhavana was horrendous after biofeedback and E-Stim internally due to pain. After E-Stim had to be knocked out and was given injections that helped with spasms. She also received internal manual work in mid [id number] and ex's. Has done self trigger point releases at home and is now too tender. Having more spasms. Sometimes changing positions helps. At work is having to stand more and is helping. Sitting creates spasms. 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 She has a couple episodes of diahrrea a day that is controllable. Has heating pad, uses ice and sometimes sex helps or it makes it worse . Prior Treatments and Tests Numerous diagnosic labs. Adenomyosis, endometriosis and 6-8 laproscopic surgeries ( 2018 or 2019 with last due to ovarian cysts). Hysterectomy, keeping both ovaries. Future Testing and Treatments Planned Testing for mastitis of the breast tissues. Treatment Goals Patient/Caregiver Goals Goal is to decrease spasms to manage it at home. Feels spasms occur daily up to 20 times daily, Her goal is 50% reducation. 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 No children. , trying to adopt. Functional Limitations- Mobility/Gait Squats increase spasms. 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 Currently dealing with breast abscess, BMI 40.6, endometriosis determined by laproscopy s/p ovarian cystectomy, 6-8 laproscopic surgeries, IBSD Records indicate abdominal pain. PT-OP-C Subjective Start: 11/06/21 16:31 Freq: Status: Active Protocol: Document 01/13/22 10:15 AMB (Rec: 01/13/22 10:31 AMB [id number]) OP-PT Subjective Patient Comments Patient Comments Pt reports inlaws have just left. She is geting surgery for her abscess next week. PT-OP-H Neuro Start: 11/06/21 16:31 Freq: Status: Active Protocol: Document 11/09/21 14:32 LRN (Rec: 11/09/21 19:06 LRN [id number]) Sensation Evaluation Gross Sensation Sensation Description Hyperesthesia Comments Summary Comments Has sensation, hypersensitive due to increase in methyltrixate, and mherpes sympliex virus 2. PT-OP-I Pelvic Floor Start: 11/06/21 16:31 Freq: Status: Active Protocol: Document 11/09/21 14:32 LRN (Rec: 11/09/21 19:06 LRN [id number]) Pelvic Floor Assessment Pelvic Clock Pelvic Clock 12-3 Tenderness,Tightness Pelvic Clock 3-6 Tenderness,Tightness Pelvic Clock 6-9 Tenderness,Tightness Pelvic Clock 9-12 Tenderness,Tightness Pelvic Clock Other Pt indicates per intake form that she does not have the sensation that she needs to go to the toilet. Prolapse Cystocele Grade 2 Prolapse Comments Checked in supine Contraction Ability Voluntary Relaxation Absent Comments Pelvic Floor Comments Strength testing deferred due to Vaginal tightness & pain with internal palpation. When asked to do a PF contraction, no visible contraction is noted externally (no clitoral nod or anal wink). Pt denies constipation or uinary leakage. She notes sometimes she has diahrrea. PT-OP-J Posture/Palpation/Skin Start: 11/06/21 16:31 Freq: Status: Active Protocol: Document 11/09/21 14:32 LRN (Rec: 11/09/21 19:06 LRN [id number]) Posture Evaluation Position Standing Head/C-Spine Posture Forward Head T-Spine Posture Flattened L-Spine Posture Increased Lordosis Shoulder Posture (L) Elevated Arm Posture (L) Internally Rotated,(R) Internally Rotated Pelvis Posture Anteriorly Tilted Ankle/Foot Posture (R) Forefoot Adducted Comments Posture Comments R handed. R shoulder/breast low, wide stance, Dowagers hump, flat uppoer T/S with flexion apex T6-T7, mildly hyperextended at knees. Endomorphic body type (5' 6, 250#) PT-OP-K Range of Motion Start: 11/06/21 16:31 Freq: Status: Active Protocol: Document 11/09/21 14:32 LRN (Rec: 11/09/21 19:06 LRN [id number]) Lumbar Spine Range of Motion Lumbar Spine Active Degrees Testing Position Standing Flexion 90 Extension 35 Rotation Left 25 Rotation Right 20 Lateral Flexion Left 28 Lateral Flexion Right 25 Comments R SB is with flexion of hips Hip Goniometric Range of Motion Hip Right Passive Testing Position Supine Flexion w/Knee Flexed 115 Internal Rotation 25 External Rotation 85 Left Passive Testing Position Supine Flexion w/Knee Flexed 115 Internal Rotation 15 External Rotation 85 PT-OP-M Strength Start: 11/06/21 16:31 Freq: Status: Active Protocol: Document 11/09/21 14:32 LRN (Rec: 11/09/21 19:06 LRN [id number]) Trunk Strength Trunk Manual Muscle Testing Testing Position Supine Core Stabilization Pt was able to mostly hold her core stable with MMT of LE's; therefore graded 4/5. Hip Strength Hip Manual Muscle Testing Right Flexion (L2) 5 Normal Abduction 5 Normal Adduction 2 Poor External Rotation 5 Normal Internal Rotation 5 Normal Left Flexion (L2) 5 Normal Abduction 5 Normal Adduction 1 Trace External Rotation 3+ Fair+ Internal Rotation 5 Normal PT-OP-Q Treatments Start: 11/06/21 16:31 Freq: Status: Active Protocol: Document 01/13/22 12:51 AMB (Rec: 01/13/22 12:53 AMB [id number]) Therapeutic Exercises Supine Exercises Breathing education Supine Exercise Name diaphragmatic Comments 10 min PPT Supine Exercise Name PPT training Reps/Minutes 3' Comments Much phy cuing to back and abdomen & v cuing to relax legs/feet Standing Exercises Active hamstring Reps/Minutes 30x4 Comments against wall PT-OP-T Assessment and Plan Start: 11/06/21 16:31 Freq: Status: Active Protocol: Document 01/13/22 10:15 AMB (Rec: 01/13/22 10:31 AMB [id number]) Physical Therapy Assessment Goals Three Impairment Lower abdominal pain rated 4-9 /10 Drafter Plumbing Goal (LTG) Decrease abdominal pain onset to intermittent. LTG Duration 02/07/22 Two Impairment PF muscle spasms daily Impairment Feels spasms occur daily up to 20 times daily, Drafter Plumbing Goal (LTG) Goal is to decrease spasms by 50% to be able to manage at home. Feels spasms occur daily up to 20 times daily, LTG Duration 02/07/22 One Impairment Pt is not consistently participating in a self care HEP Short Term Goal (STG) Pt will be educated in self trP treatment to the PF for pain relief. (11/16/21: Pt educated in self trP treatment with small wand issued). STG Duration 11/20/21 (11/16/21: MET GOAL) Drafter Plumbing Goal (LTG) Pt will be educated and independent in PF, hip and low back stretches. (11/16/21: HEP: added piriformis and lateral hip stretch) (01/04/22: Added Happy Baby Pose, attempted PF squat stretch) LTG Duration 02/07/22 (01/04/22: Progressed) Assessment Summary Assessment Pt did better with posterior pelvic tilt today than last visit. Did feel a stretch with active hamstring stretch. Physical Therapy Plan Next Visit Focus/Plan Next Visit Plan Consider internal release if pt is tolerating-- it has been 10 years since first pelvic floor PT tried this.
--- NOTE | 2022-02-01 17:23 | PT.OTN ---
Current Diagnoses Stiffness of unspecified hip, not elsewhere classified (02/01/22) Pelvic and perineal pain (02/01/22) Physical Therapy Treatment Note PT-OP-A Visit Information Start: 11/06/21 16:31 Freq: Status: Active Protocol: Document 02/01/22 13:02 LRN (Rec: 02/01/22 13:47 LRN [id number]) Out-Patient Physical Therapy Visit Information Visit Information Visit Type Progress Note Visit Start Time 13:02 Visit Stop Time 13:40 Total Visit Minutes 38 Visit Number 7 Evaluation Information Evaluation Date 11/09/21 Precautions Precautions Currently dealing with breast abscess. Record review indicates PMH: Herpes, IBSD, Obesity (BMI 40. 6), endometriosis determined by laproscopy s/p ovarian cystectomy, abdominal pain, POTS in 2017, HPV infection 2013, cervical radiculopathy. Pt reports 3, Parity 0, miscarriages 3 before 1st trimester (~8-10 weeks). PT-OP-B Current Condition Start: 11/06/21 16:31 Freq: Status: Active Protocol: Document 11/09/21 14:32 LRN (Rec: 11/09/21 19:06 LRN [id number]) Current Condition History of Current Condition Onset Date 06/2021 Current Complaints Having PF spasms with no full relaxation. History of Current Condition Pelvic pain off/on several years. Recent flare up Jun 2022. Has had PT for PFP in [id number] in [place] for a couple weeks and was not beneficial with biofeedback treatments. Tried PT at [facility]/ [facility], but didn't feel it was improving in mid 2019. PT was aggrevating symptoms more than benefitting; therefore is deciding to try a different PT office. [facility] was horrendous after biofeedback and E-Stim internally due to pain. After E-Stim had to be knocked out and was given injections that helped with spasms. She also received internal manual work in mid [id number] and ex's. Has done self trigger point releases at home and is now too tender. Having more spasms. Sometimes changing positions helps. At work is having to stand more and is helping. Sitting creates spasms. 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 She has a couple episodes of diahrrea a day that is controllable. Has heating pad, uses ice and sometimes sex helps or it makes it worse . Prior Treatments and Tests Numerous diagnosic labs. Adenomyosis, endometriosis and 6-8 laproscopic surgeries ( 2018 or 2019 with last due to ovarian cysts). Hysterectomy, keeping both ovaries. Future Testing and Treatments Planned Testing for mastitis of the breast tissues. Treatment Goals Patient/Caregiver Goals Goal is to decrease spasms to manage it at home. Feels spasms occur daily up to 20 times daily, Her goal is 50% reducation. 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 No children. , trying to adopt. Functional Limitations- Mobility/Gait Squats increase spasms. 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 Currently dealing with breast abscess, BMI 40.6, endometriosis determined by laproscopy s/p ovarian cystectomy, 6-8 laproscopic surgeries, IBSD Records indicate abdominal pain. PT-OP-C Subjective Start: 11/06/21 16:31 Freq: Status: Active Protocol: Document 02/01/22 13:02 LRN (Rec: 02/01/22 13:47 LRN [id number]) OP-PT Subjective Patient Comments Patient Comments No changes. Did not have the surgery because couldn't get the IV in the vein. Not sure if she has an infection or an inflammatory process going on. The breast is feeling better. The ms spasms not as bad. The stretches last time were helpful. PT-OP-H Neuro Start: 11/06/21 16:31 Freq: Status: Active Protocol: Document 11/09/21 14:32 LRN (Rec: 11/09/21 19:06 LRN [id number]) Sensation Evaluation Gross Sensation Sensation Description Hyperesthesia Comments Summary Comments Has sensation, hypersensitive due to increase in methyltrixate, and mherpes sympliex virus 2. PT-OP-I Pelvic Floor Start: 11/06/21 16:31 Freq: Status: Active Protocol: Document 11/09/21 14:32 LRN (Rec: 11/09/21 19:06 LRN [id number]) Pelvic Floor Assessment Pelvic Clock Pelvic Clock 12-3 Tenderness,Tightness Pelvic Clock 3-6 Tenderness,Tightness Pelvic Clock 6-9 Tenderness,Tightness Pelvic Clock 9-12 Tenderness,Tightness Pelvic Clock Other Pt indicates per intake form that she does not have the sensation that she needs to go to the toilet. Prolapse Cystocele Grade 2 Prolapse Comments Checked in supine Contraction Ability Voluntary Relaxation Absent Comments Pelvic Floor Comments Strength testing deferred due to Vaginal tightness & pain with internal palpation. When asked to do a PF contraction, no visible contraction is noted externally (no clitoral nod or anal wink). Pt denies constipation or uinary leakage. She notes sometimes she has diahrrea. PT-OP-J Posture/Palpation/Skin Start: 11/06/21 16:31 Freq: Status: Active Protocol: Document 11/09/21 14:32 LRN (Rec: 11/09/21 19:06 LRN [id number]) Posture Evaluation Position Standing Head/C-Spine Posture Forward Head T-Spine Posture Flattened L-Spine Posture Increased Lordosis Shoulder Posture (L) Elevated Arm Posture (L) Internally Rotated,(R) Internally Rotated Pelvis Posture Anteriorly Tilted Ankle/Foot Posture (R) Forefoot Adducted Comments Posture Comments R handed. R shoulder/breast low, wide stance, Dowagers hump, flat uppoer T/S with flexion apex T6-T7, mildly hyperextended at knees. Endomorphic body type (5' 6, 250#) PT-OP-K Range of Motion Start: 11/06/21 16:31 Freq: Status: Active Protocol: Document 11/09/21 14:32 LRN (Rec: 11/09/21 19:06 LRN [id number]) Lumbar Spine Range of Motion Lumbar Spine Active Degrees Testing Position Standing Flexion 90 Extension 35 Rotation Left 25 Rotation Right 20 Lateral Flexion Left 28 Lateral Flexion Right 25 Comments R SB is with flexion of hips Hip Goniometric Range of Motion Hip Right Passive Testing Position Supine Flexion w/Knee Flexed 115 Internal Rotation 25 External Rotation 85 Left Passive Testing Position Supine Flexion w/Knee Flexed 115 Internal Rotation 15 External Rotation 85 PT-OP-M Strength Start: 11/06/21 16:31 Freq: Status: Active Protocol: Document 11/09/21 14:32 LRN (Rec: 11/09/21 19:06 LRN [id number]) Trunk Strength Trunk Manual Muscle Testing Testing Position Supine Core Stabilization Pt was able to mostly hold her core stable with MMT of LE's; therefore graded 4/5. Hip Strength Hip Manual Muscle Testing Right Flexion (L2) 5 Normal Abduction 5 Normal Adduction 2 Poor External Rotation 5 Normal Internal Rotation 5 Normal Left Flexion (L2) 5 Normal Abduction 5 Normal Adduction 1 Trace External Rotation 3+ Fair+ Internal Rotation 5 Normal PT-OP-Q Treatments Start: 11/06/21 16:31 Freq: Status: Active Protocol: Document 02/01/22 13:02 LRN (Rec: 02/01/22 13:47 LRN [id number]) Therapeutic Exercises Standing Exercises Active hamstring Reps/Minutes 30 x 2 Comments against wall Manual Therapy Treatment Soft Tissue Mobilization PF Body Location 2-5 of PF clock Mobilization Type Sustained Pressure Body Position Hooklying Comments Pt hips in max ER relaxation. Lower Abdomen Body Location Lower abdomen fascia, deep soft tissue Mobilization Type Myofascial Release,Sustained Pressure Intensity/Depth Superficial Body Position Supine Comments Bladder R rot mostly corrected . Uterus/Bladder infer/super separation. Bladder superior glide. PT-OP-T Assessment and Plan Start: 11/06/21 16:31 Freq: Status: Active Protocol: Document 02/01/22 13:02 LRN (Rec: 02/01/22 13:47 LRN [id number]) Physical Therapy Assessment Rehab Potential Rehabilitation Potential Excellent Evaluation Complexity Number of Personal Factors/Comorbidities 3 or More Number of Body Systems Impaired 4 or More Clinical Presentation at Evaluation Evolving Impairments Impairments Activity Tolerance,Pain, Posture,ROM,Soft Tissue Mobility Goals Three Impairment Lower abdominal pain rated 4-9 /10 Half-Way Goal (LTG) Decrease abdominal pain onset to intermittent. LTG Duration 02/07/22 Two Impairment PF muscle spasms daily Impairment Feels spasms occur daily up to 20 times daily, Half-Way Goal (LTG) Goal is to decrease spasms by 50% to be able to manage at home. Feels spasms occur daily up to 20 times daily, LTG Duration 02/07/22 One Impairment Pt is not consistently participating in a self care HEP Short Term Goal (STG) Pt will be educated in self trP treatment to the PF for pain relief. (11/16/21: Pt educated in self trP treatment with small wand issued). STG Duration 11/20/21 (11/16/21: MET GOAL) Machine Shop Inspector Goal (LTG) Pt will be educated and independent in PF, hip and low back stretches. (11/16/21: HEP: added piriformis and lateral hip stretch) (01/04/22: Added Happy Baby Pose, attempted PF squat stretch) LTG Duration 02/07/22 (01/04/22: Progressed) Assessment Summary Assessment Overall the pt has made progress in self care as per plan of care. Pt has been seen 1-4x/week for a total of 5 treatment visits in 8 weeks. The pt has had an adoption of a baby recently, and other health concerns (IBS, breast infection) that is making it more difficulty for the pt to progress and achieve a decreased pelvic floor tone. She does appear to be doing home exercises and has found the hamstring stretch last issued helpful in stretching her PF. She finds doing a PPT is easier in supine than standng. Further physical therapy for manual PF releases and GI mobs is expected to be helpful in decreasing PF ms spasms; therefore recommend continuation of skilled phyiscal therapy to help acheive the above stated goals . Physical Therapy Plan Frequency and Duration Frequency of Treatment 1x/Week Plan of Care Start Date 02/01/22 Plan of Care End Date 05/02/22 Therapeutic Interventions Therapeutic Interventions Home Exercise Program,Joint Mobilizations,Manual Therapy, Neuromuscular Re-education, Patient/Caregiver Education, Self-Care/Home Management,Soft Tissue Mobilization, Therapeutic Activities, Therapeutic Exercises Modalities Cold Pack/Ice Massage,Electric Stimulation,Hot Packs Next Visit Focus/Plan Next Note Type Treatment Note Next Visit Plan Pt transferring to Romy Medrano DPT due to pt's work hours and her scheduling needs. Assess response to internal release and continue if tolerated. Recommendations: abdominal STM to improve pelvic, Obturator Internus, lumbar, & piriformis mobility. Pt external PF stretching with wand when pt brings in, and relaxation through breathing. Improve lumbar/hip (IR,?ext) mobility and for hip/core stabilization , Initially Focus was on setting pt on HEP, then decreasing soft tissue muscle guarding and pain in the PF, abdomen, hips and low back.
--- NOTE | 2022-02-01 17:24 | PT.OPPOC ---
Physical, Occupational & Speech Therapy At [facility] Current Diagnoses Stiffness of unspecified hip, not elsewhere classified (02/01/22) Pelvic and perineal pain (02/01/22) Visit Care Team Role Provider Type Dax Mosley MD Family Provider Physician Primary Care Provider Specialty: Family Practice Address: [address] [place] [address] Email: [email or web address] Khushbu Saldivar MD Attending Provider Physician Referring Provider Specialty: Gynecology FERMENTATION ENGINEER Obstetrics Address: [address] [place] [address], [address] Email: [email or web address] Plan Of Care PT-OP-T Assessment and Plan Start: 11/06/21 16:31 Freq: Status: Active Protocol: Document 02/01/22 13:02 LRN (Rec: 02/01/22 13:47 LRN [id number]) Physical Therapy Assessment Rehab Potential Rehabilitation Potential Excellent Evaluation Complexity Number of Personal Factors/Comorbidities 3 or More Number of Body Systems Impaired 4 or More Clinical Presentation at Evaluation Evolving Impairments Impairments Activity Tolerance,Pain, Posture,ROM,Soft Tissue Mobility Goals Three Impairment Lower abdominal pain rated 4-9 /10 Folder Machine Adjuster Goal (LTG) Decrease abdominal pain onset to intermittent. LTG Duration 02/07/22 Two Impairment PF muscle spasms daily Impairment Feels spasms occur daily up to 20 times daily, Folder Machine Adjuster Goal (LTG) Goal is to decrease spasms by 50% to be able to manage at home. Feels spasms occur daily up to 20 times daily, LTG Duration 02/07/22 One Impairment Pt is not consistently participating in a self care HEP Short Term Goal (STG) Pt will be educated in self trP treatment to the PF for pain relief. (11/16/21: Pt educated in self trP treatment with small wand issued). STG Duration 11/20/21 (11/16/21: MET GOAL) Folder Machine Adjuster Goal (LTG) Pt will be educated and independent in PF, hip and low back stretches. (11/16/21: HEP: added piriformis and lateral hip stretch) (01/04/22: Added Happy Baby Pose, attempted PF squat stretch) LTG Duration 02/07/22 (01/04/22: Progressed) Assessment Summary Assessment Overall the pt has made progress in self care as per plan of care. Pt has been seen 1-4x/week for a total of 5 treatment visits in 8 weeks. The pt has had an adoption of a baby recently, and other health concerns (IBS, breast infection) that is making it more difficulty for the pt to progress and achieve a decreased pelvic floor tone. She does appear to be doing home exercises and has found the hamstring stretch last issued helpful in stretching her PF. She finds doing a PPT is easier in supine than standng. Further physical therapy for manual PF releases and GI mobs is expected to be helpful in decreasing PF ms spasms; therefore recommend continuation of skilled phyiscal therapy to help acheive the above stated goals . Physical Therapy Plan Frequency and Duration Frequency of Treatment 1x/Week Plan of Care Start Date 02/01/22 Plan of Care End Date 05/02/22 Therapeutic Interventions Therapeutic Interventions Home Exercise Program,Joint Mobilizations,Manual Therapy, Neuromuscular Re-education, Patient/Caregiver Education, Self-Care/Home Management,Soft Tissue Mobilization, Therapeutic Activities, Therapeutic Exercises Modalities Cold Pack/Ice Massage,Electric Stimulation,Hot Packs Next Visit Focus/Plan Next Note Type Treatment Note Next Visit Plan Pt transferring to Romy Medrano DPT due to pt's work hours and her scheduling needs. Assess response to internal release and continue if tolerated. Recommendations: abdominal STM to improve pelvic, Obturator Internus, lumbar, & piriformis mobility. Pt external PF stretching with wand when pt brings in, and relaxation through breathing. Improve lumbar/hip (IR,?ext) mobility and for hip/core stabilization , Initially Focus was on setting pt on HEP, then decreasing soft tissue muscle guarding and pain in the PF, abdomen, hips and low back. Plan of Care Dates Plan of Care Start Date 02/01/22 Plan of Care End Date 05/02/22 Electronically Signed by: Jessie Lopez, PT 02/01/22 2347 If you are in agreement with this Plan of Care, please return a signed and dated copy. I have reviewed this Plan of Care and certify that the skilled therapy services above are required to meet the patient?s needs. Physician Signature Date Printed Name and Credentials Clinical Instructor Signature Printed Name and Credentials
--- NOTE | 2022-02-10 10:58 | PT.OTN ---
Current Diagnoses Stiffness of unspecified hip, not elsewhere classified (02/10/22) Pelvic and perineal pain (02/10/22) Physical Therapy Treatment Note PT-OP-A Visit Information Start: 11/06/21 16:31 Freq: Status: Active Protocol: Document 02/10/22 09:52 AMB (Rec: 02/10/22 10:58 AMB [id number]) Out-Patient Physical Therapy Visit Information Visit Information Visit Type Treatment Note Visit Start Time 09:45 Visit Stop Time 10:30 Total Visit Minutes 40 Visit Number 8 PT-OP-B Current Condition Start: 11/06/21 16:31 Freq: Status: Active Protocol: Document 11/09/21 14:32 LRN (Rec: 11/09/21 19:06 LRN [id number]) Current Condition History of Current Condition Onset Date 06/2021 Current Complaints Having PF spasms with no full relaxation. History of Current Condition Pelvic pain off/on several years. Recent flare up Jun 2022. Has had PT for PFP in [id number] in [place] a couple weeks and was not beneficial with biofeedback treatments. Tried PT at e/ [facility], but didn't feel it was improving in mid 2019. PT was aggrevating symptoms more than benefitting; therefore is deciding to try a different PT office. Velia/Primaverbhavana was horrendous after biofeedback and E-Stim internally due to pain. After E-Stim had to be knocked out and was given injections that helped with spasms. She also received internal manual work in mid 3867-0780 and ex's. Has done self trigger point releases at home and is now too tender. Having more spasms. Sometimes changing positions helps. At work is having to stand more and is helping. Sitting creates spasms. 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 She has a couple episodes of diahrrea a day that is controllable. Has heating pad, uses ice and sometimes sex helps or it makes it worse . Prior Treatments and Tests Numerous diagnosic labs. Adenomyosis, endometriosis and 6-8 laproscopic surgeries ( 2018 or 2019 with last due to ovarian cysts). Hysterectomy, keeping both ovaries. Future Testing and Treatments Planned Testing for mastitis of the breast tissues. Treatment Goals Patient/Caregiver Goals Goal is to decrease spasms to manage it at home. Feels spasms occur daily up to 20 times daily, Her goal is 50% reducation. 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 , trying to adopt. Functional Limitations- Mobility/Gait Squats increase spasms. 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 Currently dealing with breast abscess, BMI 40.6, endometriosis determined by laproscopy s/p ovarian cystectomy, 6-8 laproscopic surgeries, IBSD Records indicate abdominal pain. PT-OP-C Subjective Start: 11/06/21 16:31 Freq: Status: Active Protocol: Document 02/10/22 09:52 AMB (Rec: 02/10/22 10:58 AMB [id number]) OP-PT Subjective Patient Comments Patient Comments Pt was sore the day after last visit. PT-OP-H Neuro Start: 11/06/21 16:31 Freq: Status: Active Protocol: Document 11/09/21 14:32 LRN (Rec: 11/09/21 19:06 LRN [id number]) Sensation Evaluation Gross Sensation Sensation Description Hyperesthesia Comments Summary Comments Has sensation, hypersensitive due to increase in methyltrixate, and mherpes sympliex virus 2. PT-OP-I Pelvic Floor Start: 11/06/21 16:31 Freq: Status: Active Protocol: Document 11/09/21 14:32 LRN (Rec: 11/09/21 19:06 LRN [id number]) Pelvic Floor Assessment Pelvic Clock Pelvic Clock 12-3 Tenderness,Tightness Pelvic Clock 3-6 Tenderness,Tightness Pelvic Clock 6-9 Tenderness,Tightness Pelvic Clock 9-12 Tenderness,Tightness Pelvic Clock Other Pt indicates per intake form that she does not have the sensation that she needs to go to the toilet. Prolapse Cystocele Grade 2 Prolapse Comments Checked in supine Contraction Ability Voluntary Relaxation Absent Comments Pelvic Floor Comments Strength testing deferred due to Vaginal tightness & pain with internal palpation. When asked to do a PF contraction, no visible contraction is noted externally (no clitoral nod or anal wink). Pt denies constipation or uinary leakage. She notes sometimes she has diahrrea. PT-OP-J Posture/Palpation/Skin Start: 11/06/21 16:31 Freq: Status: Active Protocol: Document 11/09/21 14:32 LRN (Rec: 11/09/21 19:06 LRN [id number]) Posture Evaluation Position Standing Head/C-Spine Posture Forward Head T-Spine Posture Flattened L-Spine Posture Increased Lordosis Shoulder Posture (L) Elevated Arm Posture (L) Internally Rotated,(R) Internally Rotated Pelvis Posture Anteriorly Tilted Ankle/Foot Posture (R) Forefoot Adducted Comments Posture Comments R handed. R shoulder/breast low, wide stance, Dowagers hump, flat uppoer T/S with flexion apex T6-T7, mildly hyperextended at knees. Endomorphic body type (5' 6, 250#) PT-OP-K Range of Motion Start: 11/06/21 16:31 Freq: Status: Active Protocol: Document 11/09/21 14:32 LRN (Rec: 11/09/21 19:06 LRN [id number]) Lumbar Spine Range of Motion Lumbar Spine Active Degrees Testing Position Standing Flexion 90 Extension 35 Rotation Left 25 Rotation Right 20 Lateral Flexion Left 28 Lateral Flexion Right 25 Comments R SB is with flexion of hips Hip Goniometric Range of Motion Hip Right Passive Testing Position Supine Flexion w/Knee Flexed 115 Internal Rotation 25 External Rotation 85 Left Passive Testing Position Supine Flexion w/Knee Flexed 115 Internal Rotation 15 External Rotation 85 PT-OP-M Strength Start: 11/06/21 16:31 Freq: Status: Active Protocol: Document 11/09/21 14:32 LRN (Rec: 11/09/21 19:06 LRN [id number]) Trunk Strength Trunk Manual Muscle Testing Testing Position Supine Core Stabilization Pt was able to mostly hold her core stable with MMT of LE's; therefore graded 4/5. Hip Strength Hip Manual Muscle Testing Right Flexion (L2) 5 Normal Abduction 5 Normal Adduction 2 Poor External Rotation 5 Normal Internal Rotation 5 Normal Left Flexion (L2) 5 Normal Abduction 5 Normal Adduction 1 Trace External Rotation 3+ Fair+ Internal Rotation 5 Normal PT-OP-Q Treatments Start: 11/06/21 16:31 Freq: Status: Active Protocol: Document 02/10/22 09:52 AMB (Rec: 02/10/22 10:58 AMB [id number]) Manual Therapy Treatment Soft Tissue Mobilization L Ischial Tub Body Location L Ischium PA Mobilization Type Sustained Pressure Intensity/Depth Moderate Body Position Sitting Lower Abdomen Body Location Lower abdomen fascia, deep soft tissue Mobilization Type Myofascial Release,Sustained Pressure Intensity/Depth Superficial Body Position Supine Comments ILU, iliopsoas Other Other Manual Treatments instruction in self release with ball, externally PT-OP-T Assessment and Plan Start: 11/06/21 16:31 Freq: Status: Active Protocol: Document 02/10/22 09:52 AMB (Rec: 02/10/22 10:58 AMB [id number]) Physical Therapy Assessment Goals Three Impairment Lower abdominal pain rated 4-9 /10 Care Home Goal (LTG) Decrease abdominal pain onset to intermittent. LTG Duration 02/07/22 Two Impairment PF muscle spasms daily Impairment Feels spasms occur daily up to 20 times daily, Carrot Grader Inspector Goal (LTG) Goal is to decrease spasms by 50% to be able to manage at home. Feels spasms occur daily up to 20 times daily, LTG Duration 02/07/22 One Impairment Pt is not consistently participating in a self care HEP Short Term Goal (STG) Pt will be educated in self trP treatment to the PF for pain relief. (11/16/21: Pt educated in self trP treatment with small wand issued). STG Duration 11/20/21 (11/16/21: MET GOAL) Care Home Goal (LTG) Pt will be educated and independent in PF, hip and low back stretches. (11/16/21: HEP: added piriformis and lateral hip stretch) (01/04/22: Added Happy Baby Pose, attempted PF squat stretch) LTG Duration 02/07/22 (01/04/22: Progressed) Assessment Summary Assessment Pelvic floor spasms more on the left. Tolerated exernal release, will bring wand next visit to find trigger point internally (hard for pt to feel at home independently.) Physical Therapy Plan Next Visit Focus/Plan Next Note Type Treatment Note Next Visit Plan Assess response to internal release and continue if tolerated. Recommendations: abdominal STM to improve pelvic, Obturator Internus, lumbar, & piriformis mobility. Pt external PF stretching with wand when pt brings in, and relaxation through breathing. Improve lumbar/hip (IR,?ext) mobility and for hip/core stabilization , Initially Focus was on setting pt on HEP, then decreasing soft tissue muscle guarding and pain in the PF, abdomen, hips and low back.
--- NOTE | 2022-02-17 09:57 | PT.OTN ---
Current Diagnoses Stiffness of unspecified hip, not elsewhere classified (02/17/22) Pelvic and perineal pain (02/17/22) Physical Therapy Treatment Note PT-OP-A Visit Information Start: 11/06/21 16:31 Freq: Status: Active Protocol: Document 02/17/22 09:06 AMB (Rec: 02/17/22 09:57 AMB [id number]) Out-Patient Physical Therapy Visit Information Visit Information Visit Type Treatment Note Visit Start Time 09:00 Visit Stop Time 09:45 Total Visit Minutes 45 Visit Number 9 PT-OP-B Current Condition Start: 11/06/21 16:31 Freq: Status: Active Protocol: Document 11/09/21 14:32 LRN (Rec: 11/09/21 19:06 LRN [id number]) Current Condition History of Current Condition Onset Date 06/2021 Current Complaints Having PF spasms with no full relaxation. History of Current Condition Pelvic pain off/on several years. Recent flare up Jun 2022. Has had PT for PFP in [id number] in [place] for a couple weeks and was not beneficial with biofeedback treatments. Tried PT at e/ [facility], but didn't feel it was improving in mid 2019. PT was aggrevating symptoms more than benefitting; therefore is deciding to try a different PT office. Velia/Primaverbhavana was horrendous after biofeedback and E-Stim internally due to pain. After E-Stim had to be knocked out and was given injections that helped with spasms. She also received internal manual work in mid 2910-4023 and ex's. Has done self trigger point releases at home and is now too tender. Having more spasms. Sometimes changing positions helps. At work is having to stand more and is helping. Sitting creates spasms. 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 She has a couple episodes of diahrrea a day that is controllable. Has heating pad, uses ice and sometimes sex helps or it makes it worse . Prior Treatments and Tests Numerous diagnosic labs. Adenomyosis, endometriosis and 6-8 laproscopic surgeries ( 2018 or 2019 with last due to ovarian cysts). Hysterectomy, keeping both ovaries. Future Testing and Treatments Planned Testing for mastitis of the breast tissues. Treatment Goals Patient/Caregiver Goals Goal is to decrease spasms to manage it at home. Feels spasms occur daily up to 20 times daily, Her goal is 50% reducation. 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 , trying to adopt. Functional Limitations- Mobility/Gait Squats increase spasms. 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 Currently dealing with breast abscess, BMI 40.6, endometriosis determined by laproscopy s/p ovarian cystectomy, 6-8 laproscopic surgeries, IBSD Records indicate abdominal pain. PT-OP-C Subjective Start: 11/06/21 16:31 Freq: Status: Active Protocol: Document 02/17/22 09:06 AMB (Rec: 02/17/22 09:57 AMB [id number]) OP-PT Subjective Patient Comments Patient Comments Pt did ok after last visit, not especially sore. PT-OP-H Neuro Start: 11/06/21 16:31 Freq: Status: Active Protocol: Document 11/09/21 14:32 LRN (Rec: 11/09/21 19:06 LRN [id number]) Sensation Evaluation Gross Sensation Sensation Description Hyperesthesia Comments Summary Comments Has sensation, hypersensitive due to increase in methyltrixate, and mherpes sympliex virus 2. PT-OP-I Pelvic Floor Start: 11/06/21 16:31 Freq: Status: Active Protocol: Document 11/09/21 14:32 LRN (Rec: 11/09/21 19:06 LRN [id number]) Pelvic Floor Assessment Pelvic Clock Pelvic Clock 12-3 Tenderness,Tightness Pelvic Clock 3-6 Tenderness,Tightness Pelvic Clock 6-9 Tenderness,Tightness Pelvic Clock 9-12 Tenderness,Tightness Pelvic Clock Other Pt indicates per intake form that she does not have the sensation that she needs to go to the toilet. Prolapse Cystocele Grade 2 Prolapse Comments Checked in supine Contraction Ability Voluntary Relaxation Absent Comments Pelvic Floor Comments Strength testing deferred due to Vaginal tightness & pain with internal palpation. When asked to do a PF contraction, no visible contraction is noted externally (no clitoral nod or anal wink). Pt denies constipation or uinary leakage. She notes sometimes she has diahrrea. PT-OP-J Posture/Palpation/Skin Start: 11/06/21 16:31 Freq: Status: Active Protocol: Document 11/09/21 14:32 LRN (Rec: 11/09/21 19:06 LRN [id number]) Posture Evaluation Position Standing Head/C-Spine Posture Forward Head T-Spine Posture Flattened L-Spine Posture Increased Lordosis Shoulder Posture (L) Elevated Arm Posture (L) Internally Rotated,(R) Internally Rotated Pelvis Posture Anteriorly Tilted Ankle/Foot Posture (R) Forefoot Adducted Comments Posture Comments R handed. R shoulder/breast low, wide stance, Dowagers hump, flat uppoer T/S with flexion apex T6-T7, mildly hyperextended at knees. Endomorphic body type (5' 6, 250#) PT-OP-K Range of Motion Start: 11/06/21 16:31 Freq: Status: Active Protocol: Document 11/09/21 14:32 LRN (Rec: 11/09/21 19:06 LRN [id number]) Lumbar Spine Range of Motion Lumbar Spine Active Degrees Testing Position Standing Flexion 90 Extension 35 Rotation Left 25 Rotation Right 20 Lateral Flexion Left 28 Lateral Flexion Right 25 Comments R SB is with flexion of hips Hip Goniometric Range of Motion Hip Right Passive Testing Position Supine Flexion w/Knee Flexed 115 Internal Rotation 25 External Rotation 85 Left Passive Testing Position Supine Flexion w/Knee Flexed 115 Internal Rotation 15 External Rotation 85 PT-OP-M Strength Start: 11/06/21 16:31 Freq: Status: Active Protocol: Document 11/09/21 14:32 LRN (Rec: 11/09/21 19:06 LRN [id number]) Trunk Strength Trunk Manual Muscle Testing Testing Position Supine Core Stabilization Pt was able to mostly hold her core stable with MMT of LE's; therefore graded 4/5. Hip Strength Hip Manual Muscle Testing Right Flexion (L2) 5 Normal Abduction 5 Normal Adduction 2 Poor External Rotation 5 Normal Internal Rotation 5 Normal Left Flexion (L2) 5 Normal Abduction 5 Normal Adduction 1 Trace External Rotation 3+ Fair+ Internal Rotation 5 Normal PT-OP-Q Treatments Start: 11/06/21 16:31 Freq: Status: Active Protocol: Document 02/17/22 09:06 AMB (Rec: 02/17/22 09:57 AMB [id number]) Manual Therapy Treatment Soft Tissue Mobilization PF Body Location 7-8 and 4-5 Mobilization Type Sustained Pressure Body Position Hooklying Comments Pt hips in max ER relaxation. PT-OP-T Assessment and Plan Start: 11/06/21 16:31 Freq: Status: Active Protocol: Document 02/17/22 09:06 AMB (Rec: 02/17/22 09:57 AMB [id number]) Physical Therapy Assessment Goals Three Impairment Lower abdominal pain rated 4-9 /10 Assembler Tractor Goal (LTG) Decrease abdominal pain onset to intermittent. LTG Duration 02/07/22 Two Impairment PF muscle spasms daily Impairment Feels spasms occur daily up to 20 times daily, Shelter Goal (LTG) Goal is to decrease spasms by 50% to be able to manage at home. Feels spasms occur daily up to 20 times daily, LTG Duration 02/07/22 One Impairment Pt is not consistently participating in a self care HEP Short Term Goal (STG) Pt will be educated in self trP treatment to the PF for pain relief. (11/16/21: Pt educated in self trP treatment with small wand issued). STG Duration 11/20/21 (11/16/21: MET GOAL) Shelter Goal (LTG) Pt will be educated and independent in PF, hip and low back stretches. (11/16/21: HEP: added piriformis and lateral hip stretch) (01/04/22: Added Happy Baby Pose, attempted PF squat stretch) LTG Duration 02/07/22 (01/04/22: Progressed) Assessment Summary Assessment Difficulty getting trigger points with dilator that patient had, pt could consider getting wand with a curve as straight wand is difficult. Physical Therapy Plan Next Visit Focus/Plan Next Note Type Treatment Note Next Visit Plan Assess response to internal release and continue if tolerated. Recommendations: abdominal STM to improve pelvic, Obturator Internus, lumbar, & piriformis mobility. Pt external PF stretching with wand when pt brings in, and relaxation through breathing. Improve lumbar/hip (IR,?ext) mobility and for hip/core stabilization , Initially Focus was on setting pt on HEP, then decreasing soft tissue muscle guarding and pain in the PF, abdomen, hips and low back.
--- NOTE | 2022-03-03 09:42 | PT.OTN ---
Current Diagnoses Stiffness of unspecified hip, not elsewhere classified (03/03/22) Pelvic and perineal pain (03/03/22) Physical Therapy Treatment Note PT-OP-A Visit Information Start: 11/06/21 16:31 Freq: Status: Active Protocol: Document 03/03/22 09:06 AMB (Rec: 03/03/22 09:11 AMB [id number]) Out-Patient Physical Therapy Visit Information Visit Information Visit Type Treatment Note Visit Start Time 09:00 Visit Stop Time 09:45 Total Visit Minutes 45 Visit Number 10 PT-OP-B Current Condition Start: 11/06/21 16:31 Freq: Status: Active Protocol: Document 11/09/21 14:32 LRN (Rec: 11/09/21 19:06 LRN [id number]) Current Condition History of Current Condition Onset Date 06/2021 Current Complaints Having PF spasms with no full relaxation. History of Current Condition Pelvic pain off/on several years. Recent flare up Jun 2022. Has had PT for PFP in [id number] in [place] for a couple weeks and was not beneficial with biofeedback treatments. Tried PT at e/ [facility], but didn't feel it was improving in mid 2019. PT was aggrevating symptoms more than benefitting; therefore is deciding to try a different PT office. Velia/Primaverbhavana was horrendous after biofeedback and E-Stim internally due to pain. After E-Stim had to be knocked out and was given injections that helped with spasms. She also received internal manual work in mid [id number] and ex's. Has done self trigger point releases at home and is now too tender. Having more spasms. Sometimes changing positions helps. At work is having to stand more and is helping. Sitting creates spasms. 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 She has a couple episodes of diahrrea a day that is controllable. Has heating pad, uses ice and sometimes sex helps or it makes it worse . Prior Treatments and Tests Numerous diagnosic labs. Adenomyosis, endometriosis and 6-8 laproscopic surgeries ( 2018 or 2019 with last due to ovarian cysts). Hysterectomy, keeping both ovaries. Future Testing and Treatments Planned Testing for mastitis of the breast tissues. Treatment Goals Patient/Caregiver Goals Goal is to decrease spasms to manage it at home. Feels spasms occur daily up to 20 times daily, Her goal is 50% reducation. 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 No children. , trying to adopt. Functional Limitations- Mobility/Gait Squats increase spasms. 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 Currently dealing with breast abscess, BMI 40.6, endometriosis determined by laproscopy s/p ovarian cystectomy, 6-8 laproscopic surgeries, IBSD Records indicate abdominal pain. PT-OP-C Subjective Start: 11/06/21 16:31 Freq: Status: Active Protocol: Document 03/03/22 09:28 AMB (Rec: 03/03/22 09:30 AMB [id number]) OP-PT Subjective Patient Comments Patient Comments Pt reports increased pain after intercourse, but overall baseline pain has improved. PT-OP-H Neuro Start: 11/06/21 16:31 Freq: Status: Active Protocol: Document 11/09/21 14:32 LRN (Rec: 11/09/21 19:06 LRN [id number]) Sensation Evaluation Gross Sensation Sensation Description Hyperesthesia Comments Summary Comments Has sensation, hypersensitive due to increase in methyltrixate, and mherpes sympliex virus 2. PT-OP-I Pelvic Floor Start: 11/06/21 16:31 Freq: Status: Active Protocol: Document 11/09/21 14:32 LRN (Rec: 11/09/21 19:06 LRN [id number]) Pelvic Floor Assessment Pelvic Clock Pelvic Clock 12-3 Tenderness,Tightness Pelvic Clock 3-6 Tenderness,Tightness Pelvic Clock 6-9 Tenderness,Tightness Pelvic Clock 9-12 Tenderness,Tightness Pelvic Clock Other Pt indicates per intake form that she does not have the sensation that she needs to go to the toilet. Prolapse Cystocele Grade 2 Prolapse Comments Checked in supine Contraction Ability Voluntary Relaxation Absent Comments Pelvic Floor Comments Strength testing deferred due to Vaginal tightness & pain with internal palpation. When asked to do a PF contraction, no visible contraction is noted externally (no clitoral nod or anal wink). Pt denies constipation or uinary leakage. She notes sometimes she has diahrrea. PT-OP-J Posture/Palpation/Skin Start: 11/06/21 16:31 Freq: Status: Active Protocol: Document 11/09/21 14:32 LRN (Rec: 11/09/21 19:06 LRN [id number]) Posture Evaluation Position Standing Head/C-Spine Posture Forward Head T-Spine Posture Flattened L-Spine Posture Increased Lordosis Shoulder Posture (L) Elevated Arm Posture (L) Internally Rotated,(R) Internally Rotated Pelvis Posture Anteriorly Tilted Ankle/Foot Posture (R) Forefoot Adducted Comments Posture Comments R handed. R shoulder/breast low, wide stance, Dowagers hump, flat uppoer T/S with flexion apex T6-T7, mildly hyperextended at knees. Endomorphic body type (5' 6, 250#) PT-OP-K Range of Motion Start: 11/06/21 16:31 Freq: Status: Active Protocol: Document 11/09/21 14:32 LRN (Rec: 11/09/21 19:06 LRN [id number]) Lumbar Spine Range of Motion Lumbar Spine Active Degrees Testing Position Standing Flexion 90 Extension 35 Rotation Left 25 Rotation Right 20 Lateral Flexion Left 28 Lateral Flexion Right 25 Comments R SB is with flexion of hips Hip Goniometric Range of Motion Hip Right Passive Testing Position Supine Flexion w/Knee Flexed 115 Internal Rotation 25 External Rotation 85 Left Passive Testing Position Supine Flexion w/Knee Flexed 115 Internal Rotation 15 External Rotation 85 PT-OP-M Strength Start: 11/06/21 16:31 Freq: Status: Active Protocol: Document 11/09/21 14:32 LRN (Rec: 11/09/21 19:06 LRN [id number]) Trunk Strength Trunk Manual Muscle Testing Testing Position Supine Core Stabilization Pt was able to mostly hold her core stable with MMT of LE's; therefore graded 4/5. Hip Strength Hip Manual Muscle Testing Right Flexion (L2) 5 Normal Abduction 5 Normal Adduction 2 Poor External Rotation 5 Normal Internal Rotation 5 Normal Left Flexion (L2) 5 Normal Abduction 5 Normal Adduction 1 Trace External Rotation 3+ Fair+ Internal Rotation 5 Normal PT-OP-Q Treatments Start: 11/06/21 16:31 Freq: Status: Active Protocol: Document 03/03/22 09:28 AMB (Rec: 03/03/22 09:30 AMB [id number]) Manual Therapy Treatment Soft Tissue Mobilization PF Body Location 7-8 and 4-5 Mobilization Type Sustained Pressure Body Position Hooklying Comments Pt hips in max ER relaxation. Pt brought in pelvic wand and instructed in appropriate usage. PT-OP-T Assessment and Plan Start: 11/06/21 16:31 Freq: Status: Active Protocol: Document 03/03/22 09:06 AMB (Rec: 03/03/22 09:11 AMB [id number]) Physical Therapy Assessment Goals Three Impairment Lower abdominal pain rated 4-9 /10 Skilled Nursing Goal (LTG) Decrease abdominal pain onset to intermittent. LTG Duration 02/07/22 Two Impairment PF muscle spasms daily Impairment Feels spasms occur daily up to 20 times daily, Skilled Nursing Goal (LTG) Goal is to decrease spasms by 50% to be able to manage at home. Feels spasms occur daily up to 20 times daily, LTG Duration MET One Impairment Pt is not consistently participating in a self care HEP Short Term Goal (STG) Pt will be educated in self trP treatment to the PF for pain relief. (11/16/21: Pt educated in self trP treatment with small wand issued). STG Duration 11/20/21 (11/16/21: MET GOAL) Skilled Nursing Goal (LTG) Pt will be educated and independent in PF, hip and low back stretches. (11/16/21: HEP: added piriformis and lateral hip stretch) (01/04/22: Added Happy Baby Pose, attempted PF squat stretch) LTG Duration 02/07/22 (01/04/22: Progressed) Assessment Summary Assessment Pt's goal was how to release pelvic floor, and with new pelvic floor wand, pt was able to do so independently. Pt feels she is ready for d/c with new wand and exercises. Physical Therapy Plan Discharge Physical Therapy Discharge Reasons Plateau in Progress Next Visit Focus/Plan Next Note Type Treatment Note
== END 2022-03-04 14:16 ==
LOC: PHYS 09:00
PROVIDERS: Family Provider Family Medicine; PCP Family Medicine; Referring Provider Obstetrics & Gynecology; Visit Provider Obstetrics & Gynecology
DX: R10.2 Pelvic and perineal pain (principal); M25.659 Stiffness of unspecified hip, not elsewhere classified
CPT/HCPCS: 97110; 97140; 97162; 97535

== ENCOUNTER → 2022-12-10 13:35 | Outpatient (CLI) | payer OTHER, SELFPAY ==
[2021-10-01 13:13] VITALS: BMI 44.1
--- NOTE | 2022-12-10 13:36 | DI.US.S_ITS ---
PROCEDURE: US PELVIC COMPLETE INDICATIONS: pelvic pain TECHNIQUE: Real-time scanning was performed of the pelvic organs, with image documentation. Additional endovaginal scanning was necessary due to incomplete visualization of the adnexal and endometrial structures by transabdominal scanning. COMPARISON: [facility], , PELVIC COMPLETE, 01/21/2013, 10:31. FINDINGS: Uterus: Status post hysterectomy. Ovaries: Ovaries are not visualized. No adnexal mass is seen. Other: No pathologic free abdominal or pelvic fluid. IMPRESSION: 1. Status post hysterectomy. No significant sonographic abnormality is seen. 2. Ovaries are not visualized. No suspicious adnexal mass. We strive to produce accurate, complete, and clear reports of imaging services. To assist us in improving patient care, this report was composed using standard report templates and voice recognition software. Therefore, it may contain abnormal punctuation, insertions and/or omissions. Occasional wrong-word or sound-alike substitutions may occur. Though we review the report and make efforts to correct it, we do recommend that the report be read carefully in proper context to recognize any text inaccuracies. Approved by: Te Arnett M.D. on 12/10/2022 at 21:54
== END ==
PROVIDERS: Family Provider Family Medicine; PCP Family Medicine; Referring Provider Obstetrics & Gynecology; Visit Provider Obstetrics & Gynecology
DX: R10.2 Pelvic and perineal pain (principal)
CPT/HCPCS: 76830; 76856

== ENCOUNTER → 2023-01-13 09:54 | Outpatient (CLI) | payer OTHER, SELFPAY ==
[2021-10-01 13:13] VITALS: BMI 44.1
--- NOTE | 2023-01-13 09:55 | DI.CT.S_ITS ---
PROCEDURE: CT PELVIS W CON INDICATIONS: Unable to visualize ovaries/pain TECHNIQUE: After the administration of oral contrast and intravenous contrast, 5 mm thick sections acquired from the iliac crests to the symphysis. 5 mm thick coronal and sagittal reformats were acquired. For radiation dose reduction, the following was used: automated exposure control, adjustment of mA and/or kV according to patient size. COMPARISON: [facility], CT, CT ABDOMEN PELVIS W CON, 12/04/2020, 7:45. [facility], US, US PELVIC COMPLETE, 12/10/2022, 13:52. FINDINGS: Peritoneum and bowel: Visualized large and small bowel is non-dilated. No free air or substantial free fluid. Genitourinary: Bladder wall thickness is normal. The uterus is not visualized and is presumed surgically absent. Ovaries are not well evaluated by CT. A structure that appears to represent the left ovary (2/20) appears small for patient age, but similar to the prior CT, approximately 1.4 x 0.8 centimeters in the axial plane. A right ovarian/adnexal cystic appearing structure is present measuring 2.6 centimeters (2/18) similar or recurrent compared to the prior CT. Nodes and vessels: No iliac, pelvic, or inguinal adenopathy. Iliac vessels demonstrate normal size and enhancement. Bones: No suspicious bony lesions. IMPRESSION: 1. Prior hysterectomy. 2. Ovaries are not well evaluated by CT, however both appear similar in appearance to the 2020 CT with the left ovary appearing small for patient age and an indeterminate cystic structure within the right ovary which could be similar or recurrent. Could attempt repeat pelvic ultrasound or obtain pelvic MRI if clinically indicated. Dictated by: Te Clarke M.D. on 01/13/2023 at 16:44 Approved by: Te Clarke M.D. on 01/13/2023 at 16:52
== END ==
PROVIDERS: Family Provider Family Medicine; PCP Nurse Practitioner Family; Referring Provider Obstetrics & Gynecology; Visit Provider Obstetrics & Gynecology
DX: R10.2 Pelvic and perineal pain (principal); Z90.710 Acquired absence of both cervix and uterus
CPT/HCPCS: 72193; Q9967

== ENCOUNTER → 2023-02-03 13:51 | Outpatient (CLI) | payer OTHER, SELFPAY ==
[2021-10-01 13:13] VITALS: BMI 44.1
--- NOTE | 2023-02-03 13:52 | DI.MRI.S_ITS ---
PROCEDURE: MR PELVIS WO CON INDICATIONS: Pelvic pain, see recent CT scan TECHNIQUE: Coronal HASTE, sagittal breath-hold T2 FSE; axial T1 FSE with and without fat saturation through the pelvis. Optional long- and short-axis uterine nonbreath-hold T2 FSE through the uterus. Sagittal or axial dynamic VIBE during administration of contrast. Post-contrast axial or coronal VIBE/2-D FLASH with fat saturation from the iliac crests to the symphysis. Optional diffusion weighted imaging and ADC may be performed. COMPARISON: [facility], CT, CT ABDOMEN PELVIS W CON, 12/04/2020, 7:45. [facility], CT, CT PELVIS W CON, 01/13/2023, 11:25. [facility], US, US PELVIC COMPLETE, 12/10/2022, 13:52. FINDINGS: Image quality: Decreased due to motion artifact in the upper pelvis. Uterus: Surgically absent. The vaginal cuff appears normal. Adnexa: The right ovary is identified, high and posterior in the pelvis and measures 3.2 x 2.2 by 2.8 cm. It contains thin-walled unilocular dominant follicle measuring 2.9 cm. It contains homogeneously hyperintense T2 signal and mildly hypointense T1 signal. No periovarian fluid. There are two or three subcentimeter adjacent follicles. The right ovarian vein is identified. The left ovary measures 1.6 x 0.6 x 2.4 cm and contains a single subcentimeter follicle. Left ovarian vein is identified. No suspicious adnexal masses. Urinary system: Bladder is partially decompressed, the wall is normal in thickness. Distal ureters are non distended. Urethra appears normal in morphology. Nodes and vessels: No pelvic or inguinal adenopathy by size criteria. Iliac vessels are normal in size. Bowel and peritoneum: No pathologic free pelvic fluid. Inferior colon and small bowel loops are normal in caliber. Soft tissues: No inguinal hernias. No findings of pelvic floor incompetence in the absence of provocation. Bones: Marrow demonstrates normal overall signal. IMPRESSION: 1. There is a 2.9 cm right ovarian dominant follicle, increased in size compared to the most recent CT scan, and recurrent compared to CT scan from 12/04/20. 2. Left ovary is diminutive in comparison with a single subcentimeter follicle and has had a stable appearance over the past pelvic studies where it has been visualized. 3. No suspicious pelvic mass or fluid to explain pain. Dictated by: Elizabeth Santacruz M.D. on 02/04/2023 at 8:34 Approved by: Elizabeth Santacruz M.D. on 02/04/2023 at 8:50
== END ==
PROVIDERS: Family Provider Family Medicine; PCP Nurse Practitioner Family; Referring Provider Obstetrics & Gynecology; Visit Provider Obstetrics & Gynecology
DX: R10.2 Pelvic and perineal pain (principal); N83.209 Unspecified ovarian cyst, unspecified side
CPT/HCPCS: 72195

== ENCOUNTER → 2024-07-04 10:04 | Outpatient (CLI) | payer OTHER, SELFPAY ==
[2023-02-14 13:07] VITALS: BMI 44.1
[2024-07-04 11:35] LABS: Follicle Stimulating Hormone 7.45 mIU/mL
[2024-07-04 11:51] LABS: Estradiol, Total 46.4 pg/mL
== END ==
LOC: LAB 10:05
PROVIDERS: Family Provider Family Medicine; PCP Nurse Practitioner Family; Referring Provider Obstetrics & Gynecology; Visit Provider Obstetrics & Gynecology
DX: N95.1 Menopausal and female climacteric states (principal)
CPT/HCPCS: 36415; 82670; 83001

== ENCOUNTER 2024-11-13 18:00 | Emergency (ER) | payer OTHER, SELFPAY ==
[2023-02-14 13:07] VITALS: BMI 44.1
[2024-11-13 18:18] VITALS: BP 142/65; PULSE 86; RESP 15; TEMP 36.8; O2SAT 99; BMI 31.6
[2024-11-13 19:41] LABS: Add Manual Diff / Slide Review NO; Basophils Absolute Auto 100 /uL (0-100); Basophils Percent Auto 0.7 % (0-2); Eosinophils Absolute Auto 100 /uL (0-450); Eosinophils Percent Auto 1.5 % (2-4); Hematocrit 36.5 % (36-46); Hemoglobin 12.6 g/dL (12.0-16.0); Lymphocytes Absolute Auto 3100 /uL (1100-4500); Lymphocytes Percent Auto 44.6 % (25-40); Mean Corpuscular HGB Conc 34.5 % (30-36); Mean Corpuscular Hemoglobin 28.6 PG (26-34); Mean Corpuscular Volume 83.1 fL (80-100); Monocytes Absolute Auto 500 /uL (0-900); Monocytes Percent Auto 6.7 % (3-14); Neutrophils Absolute Auto 3200 /uL (1500-7000); Neutrophils Percent Auto 46.5 % (50-75); Platelet Count 368 X10^3/uL (150-400); Red Blood Cell Count 4.39 X10^6/uL (4.0-5.2); Red Cell Distribution Width 12.9 % (11.6-14.8)
[2024-11-13 19:45] LABS: Alanine Aminotransferase 22 IU/L (<35); Albumin 4.5 g/dL (3.5-5.0); Albumin Globulin Ratio 1.7 (1.0-2.8); Alkaline Phosphatase 64 U/L (38-126); Aspartate Aminotransferase 55 IU/L (14-36); BUN Creatinine Ratio 13.5 (6-22); Blood Urea Nitrogen 10 mg/dL (7-17); Calcium 10.2 mg/dL (8.4-10.2); Carbon Dioxide 26 mmol/L (22-32); Chloride 102 mmol/L (98-107); Estimated Glomerular Filt Rate > 60 mL/min (>60); Globulin 2.7 g/dL (1.7-4.1); Glucose 81 mg/dL (70-99); HEMOLYSIS 49 (0-50); Lipase 85 U/L (23-300); Potassium 4.1 mmol/L (3.4-5.1); Sodium 136 mmol/L (137-145); Total Protein 7.2 g/dL (6.3-8.2)
[2024-11-13] MEDS: ONDANSETRON 4 MG/2 ML INJ IV (20:23)
[2024-11-13 22:10] VITALS: BP 139/73; PULSE 96; RESP 18; TEMP 37.1; O2SAT 98
[2024-11-14] VITALS (10 sets, daily range): BP systolic 104–148; BP diastolic 54–81; PULSE 77–109; RESP 16–19; O2SAT 94–99
[2024-11-14] MEDS: ONDANSETRON 4 MG/2 ML INJ IV (01:16)
--- NOTE | 2024-11-14 01:34 | ED_ITS ---
HPI - Abdominal Pain General Chief Complaint: Abdominal Pain Stated Complaint: Pelvic Pain sent DR Saldivar Time Seen by Provider: 11/14/24 01:29 Source: patient Mode of arrival: Wheelchair History of Present Illness HPI narrative: 34-year-old female with history of endometriosis followed by special education director Dr. Saldivar, status post prior hysterectomy, has both ovaries, having ongoing pelvic pain. Two weeks ago was seen at [facility] emergency department having ultrasound showing right-sided 3 cm diameter ovarian cyst per patient report, was discharged home. One-week ago was seen at [facility] emergency department having pelvic ultrasound showing 3.4 cm left-sided ovarian cyst per patient report, was discharged home. At home she is taking Toradol injections, last dose earlier yesterday, has chronic pain, taking home oxycodone. Feels like she is having left-sided and right-sided pelvic pain. No fevers or chills. No frequency or painful urination. Denies cough shortness of breath chest pain. No diarrhea, no black or red stools. Related Data Home Medications Medication Instructions Recorded Confirmed etonogestrel 68 mg subdermal 68 implant subdermal INTRA-OP 08/22/24 11/13/24 implant (Nexplanon) diphenoxylate-atropine 2.5 1 tab PO QID diarrhea 11/13/24 11/13/24 mg-0.025 mg tablet (Lomotil) Previous Rx's Medication Instructions Recorded folic acid 1 mg tablet 1 mg PO DAILY #90 tabs 05/03/22 oxycodone 10 mg tablet 10 mg PO Q6H PRN pain #60 tabs 11/01/22 valacyclovir 1 gram tablet See Rx Instructions PO DAILY #90 11/09/22 tabs lorazepam 1 mg tablet 1 mg PO DAILY PRN dental anxiety 11/29/22 #2 tabs Allergies Allergy/AdvReac Type Severity Reaction Status Date / Time azithromycin [AZITHROMYCIN] Allergy Severe rash/throat Verified 08/22/24 09:26 swelling ceftriaxone Allergy Severe Anaphylaxis Verified 08/22/24 09:26 metronidazole [From Flagyl] Allergy Severe Anaphylaxis Verified 08/22/24 09:26 topiramate [TOPIRAMATE] Allergy Intermediate Rash Verified 08/22/24 09:26 codeine [CODEINE] AdvReac Severe Heartburn Verified 08/22/24 09:26 tramadol [TRAMADOL] AdvReac Intermediate Vomiting Verified 08/22/24 09:26 Patient History Medical History (Updated 11/14/24 @ 04:27 by Cirilo Donnelly MD) Chronic pain syndrome IBS (irritable bowel syndrome) Breast abscess Breast infection in female Dyslipidemia Learning disability Shoulder pain (~2017) Irregular menstrual cycle (~2005) POTS (postural orthostatic tachycardia syndrome) (~2018) Obesity Ankle pain (2014) Ovarian cyst (2007) HPV (human papilloma virus) infection (2013) Herpes (2014) Endometriosis (2007) Abnormal Pap smear of cervix (2013) History of heavy periods (2005) Painful menstrual periods (2003) Acne (2006) Eczema (1999) Chronic headaches (2007) Migraines (2007) Gastric ulcer (2015) Surgical History Anesthesia History of ankle surgery History of shoulder surgery (~01/25/20) S/P laparoscopic procedure (~05/28/19) History of laparoscopy (10/27/18) S/P laparoscopy (10/26/18) History of orthopedic surgery (07/16/15) Status post laparoscopy (07/19/14) Status post laparoscopy (2009) Status post appendectomy (01/2008) Status post ovarian cystectomy (2007) Status post laparoscopy (2007) History of tonsillectomy (06/2010) Family History Grandfather Age: 85 Colon cancer Grandmother Age: 84 Scoliosis Grandfather Lung cancer Mother Oral cancer Anxiety Father Cancer Hypertension ADHD Sister History of bipolar disorder Social History household members: spouse Smoking Status: Never smoker alcohol intake: current Smoking Status: Never smoker alcohol intake frequency: holidays/special occasions only Exam Narrative Exam Narrative: GENERAL: Well-developed patient, in mild distress. HEAD: Atraumatic. Normocephalic. EYES: Pupils equal round and reactive. Extraocular motions intact. No scleral icterus. No injection or drainage. ENT: Nose without bleeding, purulent drainage. Throat without erythema, tonsillar hypertrophy or exudate. Airway patent. NECK: Trachea midline. Non tender CARDIOVASCULAR: Regular rate and rhythm without murmurs, gallops, or rubs. RESPIRATORY: Clear to auscultation. Breath sounds equal bilaterally. No wheezes, rales, or rhonchi. GASTROINTESTINAL: Abdomen soft, non-tender, nondistended. EXTREMITIES: No edema or joint tenderness. BACK: Nontender without deformity or crepitance. No flank tenderness. NEURO: AOx3. Motor functions grossly nonfocal SKIN: No rash or erythema of visible areas Initial Vital Signs Initial Vital Signs: Vital Signs Temperature 98.3 F 11/13/24 18:18 Pulse Rate 86 11/13/24 18:18 Respiratory Rate 15 11/13/24 18:18 Blood Pressure 142/65 H 11/13/24 18:18 Pulse Oximetry 99 11/13/24 18:18 Oxygen Delivery Method Room Air 11/13/24 18:18 Course Orders Ordered: Discontinued Medications Hydromorphone HCl (Hydromorphone 0.5 Mg Inj) 0.5 mg IV NOW ONE Stop: 11/14/24 02:11 Last Admin: 11/14/24 02:15 Dose: 0.5 mg Documented By: RK Ondansetron HCl (Ondansetron 4 Mg/2 Ml Inj) 4 mg IV NOW PRN PRN Reason: Nausea And Vomiting Last Admin: 11/13/24 20:23 Dose: 4 mg Documented By: Ondansetron HCl (Ondansetron 4 Mg Odt) 4 mg PO NOW PRN PRN Reason: Nausea And Vomiting Ondansetron HCl (Ondansetron 4 Mg/2 Ml Inj) 4 mg IV NOW ONE Stop: 11/13/24 23:27 Last Admin: 11/14/24 01:16 Dose: 4 mg Documented By: RK Vital Signs Vital signs: Vital Signs - 8 hr 11/13/24 22:10 11/14/24 01:14 11/14/24 01:14 Temperature 98.8 F Pulse Rate 96 H 109 H Respiratory Rate 18 19 Blood Pressure 139/73 148/67 H Pulse Oximetry 98 96 Oxygen Delivery Method Room Air 11/14/24 01:33 11/14/24 01:34 11/14/24 01:34 Temperature Pulse Rate 109 H 106 H Respiratory Rate 17 Blood Pressure 147/81 H Pulse Oximetry 99 99 Oxygen Delivery Method Room Air 11/14/24 02:00 11/14/24 02:00 11/14/24 02:30 Temperature Pulse Rate 92 H 78 Respiratory Rate Blood Pressure 112/55 L Pulse Oximetry 96 94 Oxygen Delivery Method 11/14/24 02:30 11/14/24 03:01 11/14/24 03:02 Temperature Pulse Rate Respiratory Rate 16 Blood Pressure 119/58 L 109/60 Pulse Oximetry 99 Oxygen Delivery Method Room Air 11/14/24 03:02 11/14/24 03:04 11/14/24 03:04 Temperature Pulse Rate 84 87 Respiratory Rate Blood Pressure 125/68 Pulse Oximetry 97 97 Oxygen Delivery Method 11/14/24 03:30 11/14/24 03:31 11/14/24 03:31 Temperature Pulse Rate 77 88 Respiratory Rate 17 Blood Pressure 104/54 L Pulse Oximetry 97 97 Oxygen Delivery Method Room Air MDM - Abdominal Pain Lab Data Attestation: I reviewed the patient's lab results. Lab results narrative: White blood cell count 7000, hemoglobin 12.6, platelets 368,000. Glucose 81. BUN 10 with creatinine 0.74 normal renal function. Electrolytes unremarkable. Serum CO2 normal. Lipase normal. Slight transaminitis otherwise negative liver functions. Urine dip negative. HCG not done, history of prior hysterectomy. 11/13/24 19:00 11/13/24 19:00 Labs: Lab Results 11/13/24 Range/Units 19:00 WBC 7.0 (4.5-11.0) X10^3/uL RBC 4.39 (4.0-5.2) X10^6/uL Hgb 12.6 (12.0-16.0) g/dL Hct 36.5 (36-46) % MCV 83.1 (80-100) fL MCH 28.6 (26-34) PG MCHC 34.5 (30-36) % RDW 12.9 (11.6-14.8) % Plt Count 368 (150-400) X10^3/uL Neut % (Auto) 46.5 L (50-75) % Lymph % (Auto) 44.6 H (25-40) % [place] % (Auto) 6.7 (3-14) % Eos % (Auto) 1.5 L (2-4) % Baso % (Auto) 0.7 (0-2) % Neut # (Auto) 3200 (5056-0454) /uL Lymph # (Auto) 3100 (1164-1011) /uL [place] # (Auto) 500 (0-900) /uL Eos # (Auto) 100 (0-450) /uL Baso # (Auto) 100 (0-100) /uL Sodium 136 L (137-145) mmol/L Potassium 4.1 (3.4-5.1) mmol/L Chloride 102 (98-107) mmol/L Carbon Dioxide 26 (22-32) mmol/L BUN 10 (7-17) mg/dL Creatinine 0.74 (0.52-1.04) mg/dL Estimated GFR > 60 (>60) mL/min BUN/Creatinine Ratio 13.5 (6-22) Glucose 81 (70-99) mg/dL Calcium 10.2 (8.4-10.2) mg/dL Total Bilirubin 1.0 (0.2-1.3) mg/dL AST 55 H (14-36) IU/L ALT 22 (<35) IU/L Alkaline Phosphatase 64 (38-126) U/L Total Protein 7.2 (6.3-8.2) g/dL Albumin 4.5 (3.5-5.0) g/dL Globulin 2.7 (1.7-4.1) g/dL Albumin/Globulin Ratio 1.7 (1.0-2.8) Lipase 85 (23-300) U/L Point of care testing: Urine Dip Bedside Urine Glucose Negative Bedside Urine Bilirubin - Negative Bedside Urine Ketone - Negative Urine Specific Harrod 1.010 Bedside Urine Occult Blood - Negative Bedside Urine pH 7.0 Bedside Urine Protein - Negative Bedside Urine Urobilinogen - Negative Bedside Urine Nitrite - Negative Bedside Urine Leukocytes - Negative Esterase MDM Narrative Medical decision making narrative: 34-year-old female reports history of endometriosis status post remote hysterectomy, has both ovaries, seen at [facility] ED 2 weeks ago with reported right-sided ovarian cyst 3 cm, then 2 weeks ago at [facility] ED with reported left-sided ovarian cyst 3.5 cm, post instances sent home. Having bilateral lower abdominal pain. Afebrile, sirs screen negative. Requesting pain medications. Takes IV Toradol and oral oxycodone at home. Pelvic ultrasound ordered. Pelvic ultrasound. Impressions: ?Status post hysterectomy. Normal sonographic appearance of the right ovary. Left ovary not visualized.? There is a dominant follicle in the right ovary in the text measuring 1.4 x 1.1 x 1.6. No free fluid mentioned. Good flow noted to right ovary. See radiology report. Results discussed with patient. Who seems to be under the impression that on- call gynecology will be called about her problems per expectations with her associate professor of criminal justice Dr. Saldivar. We will contact gynecology on-call, Dr. Burnett listed. [id number], case discussed with gynecology on-call Dr. Burnett, no actions to be taken now, advises follow up with her regular associate professor of criminal justice Dr. Saldivar, continue home regimen of oxycodone and Toradol. Discharge Plan Departure Patient Disposition: Home Clinical Impression: Pelvic pain, Hx of endometriosis, History of ovarian cyst Activity Restrictions/Additional Instructions: Ongoing pelvic pain, history of endometriosis, prior hysterectomy, recent visits at alternate hospitals 2 weeks ago and last week with right and left reported ovarian cysts. Still having pain. No fever on triage. Ultrasound today did not demonstrate right-sided cyst, left ovary was not well seen. No free fluid in the pelvis. Case discussed with cross cover on-call Gynecology Dr. Burnett who advised continuing your chronic pain medication regimen and following up with your regular associate professor of criminal justice Dr. Saldivar. Return earlier to this/nearest emergency department for any change worsening symptoms or any concerns prior. Prescriptions: No Action folic acid 1 mg tablet 1 mg PO DAILY Qty: 90 3RF oxycodone 10 mg tablet 10 mg PO Q6H PRN (Reason: pain) Qty: 60 0RF Rx Instructions: okay for early refill due to leaving out of town lorazepam 1 mg tablet 1 mg PO DAILY PRN (Reason: dental anxiety) Qty: 2 0RF valacyclovir 1 gram tablet See Rx Instructions PO DAILY Qty: 90 1RF Rx Instructions: t1 tab orally daily and then t1 tab orally bid for 2 days during outbreak; Nexplanon 68 mg implant 68 implant subdermal INTRA-OP Patient Comments: in upper left arm diphenoxylate-atropine [Lomotil] 2.5-0.025 mg tablet 1 tab PO QID Referrals: Rehana Jean, RODNEY, PERSONAL LINES AGENT [Primary Care Provider] - Stand Alone Forms: Patient Portal/API/Survey
--- NOTE | 2024-11-14 02:11 | DI.US.S_ITS ---
PROCEDURE: US PELVIC COMPLETE INDICATIONS: PAIN; HX ENDOMETRIOSIS, HYSTERO TECHNIQUE: Real-time scanning was performed of the pelvic organs, with image documentation. Additional endovaginal scanning was necessary due to incomplete visualization of the adnexal and endometrial structures by transabdominal scanning. COMPARISON: None. FINDINGS: Uterus: Surgically absent. Ovaries: The right ovary measures 2.1 x 2.4 x 2.5 cm, with a calculated ovarian volume of 6.4 cc. Right ovarian simple cyst versus dominant follicle measuring 1.4 x 1.1 x 1.6 cm. Right ovary is otherwise normal in appearance. Left ovary is not seen. Other: No pathologic free abdominal or pelvic fluid. IMPRESSION: Normal appearance of the right ovary. Left ovary is not seen. Status post hysterectomy. Findings are concordant with preliminary interpretation provided by [facility]. We strive to produce accurate, complete, and clear reports of imaging services. To assist us in improving patient care, this report was composed using standard report templates and voice recognition software. Therefore, it may contain abnormal punctuation, insertions and/or omissions. Occasional wrong-word or sound-alike substitutions may occur. Though we review the report and make efforts to correct it, we do recommend that the report be read carefully in proper context to recognize any text inaccuracies. Dictated by: Maico Singh M.D. on 11/14/2024 at 8:32 Approved by: Maico Singh M.D. on 11/14/2024 at 8:33
[2024-11-14] MEDS: HYDROMORPHONE 0.5 MG INJ IV (02:15)
== END 2024-11-14 04:32 | disposition home or self-care (01) ==
PROVIDERS: Emergency Provider Emergency Medicine; Family Provider Family Medicine; PCP Nurse Practitioner Family
DX: R10.2 Pelvic and perineal pain (principal); Z87.42 Personal history of other diseases of the female genital tract; Z90.710 Acquired absence of both cervix and uterus
CPT/HCPCS: 36415; 76830; 76856; 80053; 81003; 83690; 85025; 93976; 96374; 96375; 96376; 99284; J1171; J2405

== ENCOUNTER 2024-11-18 16:39 | Observation (INO) | payer OTHER, SELFPAY ==
[2023-02-14 13:07] VITALS: BMI 44.1
[2024-11-18 17:11] VITALS: BMI 31.6
[2024-11-18] MEDS: ONDANSETRON 4 MG/2 ML INJ IV (18:26)
[2024-11-18] MEDS: HYDROMORPHONE 1 MG INJ IV ×3 (18:26→23:18)
[2024-11-18] MEDS: LACTATED RINGERS 1,000 ML 21 ML IV (18:27)
[2024-11-18 19:00] VITALS: BP 109/63; PULSE 84; RESP 18; O2SAT 100
[2024-11-18] MEDS: HYDROMORPHONE 2 MG TABLET 4 MG PO ×2 (19:59→23:57)
[2024-11-18 20:12] LABS: MRSA (Nasal) PCR NOT DETECTED (Not Detect)
[2024-11-18] MEDS: HYDROMORPHONE 2 MG INJ IV (20:33)
[2024-11-18] MEDS: SCOPOLAMINE 1 PATCH TOP (20:33)
[2024-11-18] MEDS: ACETAMINOPHEN 325 MG TABLET 650 MG PO (22:13)
[2024-11-18] MEDS: ZOLPIDEM 5 MG TABLET PO (22:13)
[2024-11-19] VITALS (10 sets, daily range): BP systolic 100–113; BP diastolic 56–62; PULSE 80–113; RESP 13–25; TEMP 36.5; O2SAT 95–100
[2024-11-19] MEDS: HYDROMORPHONE 1 MG INJ IV ×4 (02:25→10:17)
[2024-11-19] MEDS: PANTOPRAZOLE DR 20 MG TABLET PO (05:18)
[2024-11-19] MEDS: ACETAMINOPHEN 325 MG TABLET 650 MG PO (05:18)
[2024-11-19] MEDS: HYDROMORPHONE 2 MG TABLET 4 MG PO (05:22)
[2024-11-19] MEDS: ONDANSETRON 4 MG/2 ML INJ IV ×3 (05:22→14:20)
[2024-11-19 05:45] LABS: Add Manual Diff / Slide Review NO; Basophils Absolute Auto 0 /uL (0-100); Basophils Percent Auto 0.5 % (0-2); Eosinophils Absolute Auto 100 /uL (0-450); Eosinophils Percent Auto 1.6 % (2-4); Hematocrit 34.3 % (36-46); Hemoglobin 11.9 g/dL (12.0-16.0); Lymphocytes Absolute Auto 3600 /uL (1100-4500); Lymphocytes Percent Auto 41.6 % (25-40); Mean Corpuscular HGB Conc 34.7 % (30-36); Mean Corpuscular Hemoglobin 29.2 PG (26-34); Mean Corpuscular Volume 84.2 fL (80-100); Monocytes Absolute Auto 600 /uL (0-900); Monocytes Percent Auto 7.1 % (3-14); Neutrophils Absolute Auto 4200 /uL (1500-7000); Neutrophils Percent Auto 49.2 % (50-75); Platelet Count 353 X10^3/uL (150-400); Red Blood Cell Count 4.07 X10^6/uL (4.0-5.2); Red Cell Distribution Width 13.5 % (11.6-14.8); White Blood Cell Count 8.6 X10^3/uL (4.5-11.0)
--- NOTE | 2024-11-19 06:56 | PC.NURSE ---
pt c/o 8-04/26 pelvic pain consistantly overnight, pt crying/moaning and curled up in a ball in bed due to pain, frequent requests for pain meds, MD called at start of night regarding meds, x1 2mg IV dilaudid given, multiple prn 1mg IV doses and 4mg PO prn doses given with mod effect, intermittent nausea, scopalomine patch placed behind L ear with effect, prn zofran with effect, pt up with SBY assist to bathroom, AM labs, NPO at midnight for surgery in am, call nicholson within reach, care maintained
--- NOTE | 2024-11-19 12:07 | PC.NURSE ---
Patient picked up by pre op from her scheduled surgery. Patient gave her ring to her mother Jazlyn to hold. Patient assisted to bathroom to void and put on gown. A wait patient's return post op.
[2024-11-19] MEDS: ACETAMINOPHEN IV 1,000 MG/100 ML VIAL 400 MG IV (12:49)
[2024-11-19] MEDS: LACTATED RINGERS 1,000 ML 21 ML IV (14:18)
[2024-11-19] MEDS: OXYCODONE IR 5 MG TABLET PO (14:20)
--- NOTE | 2024-11-19 14:20 | P.OP_ITS ---
Operative Date/Time/Diagnoses Date of procedure: 11/19/24 Time of procedure: 14:20 Pre-op diagnosis: Persistent pelvic pain History of endometriosis Post-op diagnosis: same Procedure & Clinicians Procedure: Procedures Operation Date: 11/19/24 13:15 <No data on this case meets the specified criteria> Diagnostic laparoscopy with lysis of filmy left ovarian adhesions. Indications: Patient is a 34-year-old 2 para 0 with persistent pelvic pain. She has a history of endometriosis. She was admitted to the hospital last evening for IV pain management. Surgeon: Khushbu Saldivar Anesthesia Type: General and Local Operative Notes Findings: Normal ovaries bilaterally Normal gallbladder Appendix previously removed Previous hysterectomy with removal of both tubes Filmy adhesions over the left ovary Closure Type: primary Specimen(s): none Applied: catheter (in/out) Estimated blood loss (mL): 3 Blood products transfused: none Procedure in detail: After informed consent was obtained, the patient was taken to the operating room where she was placed in the dorsal supine position. After adequate general endotracheal anesthesia was achieved, she was placed in the dorsal lithotomy position, and prepped and draped in the usual sterile fashion. A time-out was performed. A moistened sponge stick was placed into the vagina. Attention was then turned to the abdomen where 6 cc of 0.5% Marcaine with epinephrine were injected in the umbilical fold through previous incision. A 5 mm incision was made. The Veress needle was placed into the peritoneal cavity, and its placement confirmed by aspiration and drop test. The abdominal cavity was insufflated with 4.2 L of CO2. The Veress needle was removed, and a 5 mm trocar was placed under direct visualization. The balloon on the cuff was inflated. The patient was placed into Trendelenburg. Initial inspection with the laparoscopic revealed a normal liver and gallbladder. All of the pelvis could not be visualized. A second incision was made 4 cm left lateral to the umbili cus after 6 cc of 0.5% Marcaine with epinephrine were injected. A second 5 mm trocar was placed under direct visualization. The probe was used to identify the right ovary which was normal. The left ovary was also visualized and there were some filmy adhesions over the left ovary. These were taken down with the endo Uli. There was no evidence of endometriosis seen in the pelvis or around the ovaries or in the ovarian fossa. The appendix was previously removed. The instruments were removed from the abdomen. The CO2 was allowed to escape. The incisions were repaired with 4-0 Monocryl in a subcuticular fashion. Steri-Strips, 2 by 2s, and Tegaderms were placed. The moistened sponge stick was removed from the vagina. Sponge, lap, and instrument counts were correct x2. The patient tolerated the procedure well, and was taken to PACU in stable condition. Complications: none Post-operative Condition: stable Disposition: PACU Plan for aftercare: Home after recovery
--- NOTE | 2024-11-19 14:35 | CM.DANOTE ---
Patient is a 34 yo female who was admitted OBS Status on 11/18/24 for Abd Pain/Ovarian Cyst/Pain management. Pt has [employer] for insurance and her PCP is Rehana Jean. EMR was reviewed. Per OBGYN, pt with planned surgical intervention tomorrow but over the past week has been to the ED multiple times for pain control issues and admitted for pain management and surgery. Pt with discharge orders as anticipated pt can d/c home after surgery. Per RN, pt has been independent in the room and ambulates and recently medicated for pain management and taken off the floor to OR. RN does not note any concerns and does not anticipate any d/c needs. Patient resides in [place] with her spouse and son and has local supportive mother and family. 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 Plan: SW to follow for plan of discharge home this evening post surgery and any further identified discharge planning needs. JEANA Schumacher Discharge Planning/Care Management CM Discharge Assessment Start: 11/19/24 14:34 Freq: Status: Active Protocol: Document 11/19/24 14:34 BF (Rec: 11/19/24 14:35 BF [id number]) Discharge Planning Assessment Assigned Line Puller JEANA Cid DPOA/Assigned Designee Name informally spouse Gabo Contact Information [phone] Advance Directives? No Advance Directives on File No History Provided By Patient,Medical Record Has Patient been admitted in last 30 No days? Prior Living Arrangements House Household Members spouse,children Type of transporation used prior to Drives own vehicle admit Independent with ADL's Yes Is patient alert and oriented? Yes Caregiver for Another Yes: son at home Barriers to Discharge No Discharge Plan Home Transportation Arrangement Family to transport Referrals Initiated None needed Review Status In Process Please Provide Date Initial DC 11/19/24 Assessment Was Performed Next Review Type Continued Stay Review
[2024-11-19] MEDS: BACLOFEN 10 MG TABLET PO (16:17)
--- NOTE | 2024-11-19 17:31 | PC.NURSE ---
Patient was received post op back into 229, approx 1500. VSS, patient awakens but sleepy. 2 Labs sites on abdomen with steri strips, gauze and tegaderm intact without drainage or bleeding. Patient was up to void with SB assist. Discharge orders received and patient ready for dc to home. Discharge paperwork reviewed and patient states understanding and has no further questions at this time. Escorted out via wheelchair to be picked up by her . Dr. Saldivar's office has follow up scheduled.
== END 2024-11-19 17:32 | disposition home or self-care (01) ==
LOC: AC 16:42 → ICU 16:43
PROVIDERS: Admitting Provider Obstetrics & Gynecology; Family Provider Family Medicine; PCP Nurse Practitioner Family; Referring Provider Obstetrics & Gynecology; Visit Provider Obstetrics & Gynecology
DX: N73.6 Female pelvic peritoneal adhesions (postinfective) (principal); Z90.711 Acquired absence of uterus with remaining cervical stump; Z90.79 Acquired absence of other genital organ(s); Z87.42 Personal history of other diseases of the female genital tract
CPT/HCPCS: 58660; 36415; 85025; 87797; G0378; C1713; G0379; J0131; J1100; J1171; J1885; J2250; J2405; J2704; J3010